=== PATIENT | male | born 1965 | race Caucasian/White ===

== ENCOUNTER 2017-08-07 07:10 | Day surgery (SDC) | payer MEDICAID ==
[~2017-08-07 07:10] MED LIST: Cefuroxime 10 MG/ML SYRINGE EYELF SCH; Lidocaine 1% PF 2 ML SDV INJECT SCH; Phenylephrine 2.5% Ophth Soln 2 ML Bot EYELF SCH; Pilocarpine 4% Ophth Soln 15 ML Bot EYELF SCH; Polymyxin B/Trimethoprim 10 ML Bottle EYELF ONE
[2017-08-07] MEDS: Ofloxacin 0.3% Ophth Soln 5 ML Bottle EYELF SCH ×3 (07:25→08:59)
[2017-08-07] MEDS: Brimonidine 0.2% Ophth Soln 5 ML Bottle EYELF SCH ×3 (07:30→08:59)
[2017-08-07] MEDS: Phenylephrine 2.5% Ophth Soln 2 ML Bot EYELF SCH ×5 (07:37→08:41)
--- NOTE | 2017-08-07 07:50 | PCM.PREANE ---
Preanesthetic Assessment - Procedure Proposed Procedure: L eye cataract extraction with IOL - Anesthesia/Transfusion/Family Hx Anesthesia History: Prior Anesthesia Without Reaction Family History of Anesthesia Reaction: No Transfusion History: No Prior Transfusion(s) Additional History: stage 3 kidney disease - Review of Systems General: No Symptoms Pulmonary: No Symptoms Cardiovascular: Other (HTN) Gastrointestinal: No Symptoms Neurological: No Symptoms, Other (RA) Other: Reports: Diabetes (NIDDM), Depression, Anxiety - Physical Assessment NPO Status Date: 08/07/17 NPO Status Time: 21:00 Pulse: 74 O2 Sat by Pulse Oximetry: 97 Respiratory Rate: 16 Blood Pressure: 121/75 Temperature: 36.6 C Height: 1.88 m Weight: 90.718 kg ASA Class: 2 Mental Status: Alert & Oriented x3 Airway Class: Mallampati = 2 Dentition: Reports: Normal Dentition Thyro-Mental Finger Breadths: 3 Mouth Opening Finger Breadths: 3 ROM/Head Extension: Full Lungs: Clear to Auscultation, Normal Respiratory Effort Cardiovascular: Regular Rate, Regular Rhythm - Allergies Allergies/Adverse Reactions: Allergies Allergy/AdvReac Type Severity Reaction Status Date / Time Sulfa (Sulfonamide Allergy Intermediate Rash Verified 08/06/17 14:02 Antibiotics) - Blood Blood Available: No Product(s) Available: None - Anesthesia Plan Pre-Op Medication Ordered: None - Acknowledgements Anesthesia Type Planned: MAC Pt an Appropriate Candidate for the Planned Anesthesia: Yes Alternatives and Risks of Anesthesia Discussed w Pt/Guardian: Yes Pt/Guardian Understands and Agrees with Anesthesia Plan: Yes PreAnesthesia Questionnaire Cardiovascular History: Reports: Hypertension Genitourinary History: Reports: Renal Disease Psychiatric History: Reports: Depression Endocrine/Metabolic History: Reports: Diabetes, Type II - Infectious Disease History Infectious Disease History: Reports: Chicken Pox - SUBSTANCE USE Smoking Status *Q: Never Smoker Second Hand Smoke Exposure: No Days Per Week of Alcohol Use: 0 (occasional) Recreational Drug Use History: No - HOME MEDS Home Medications: Home Meds Hydrocodone/Acetaminophen [Hydrocodon-Acetaminophn 10-325] 1 - 2 tab PO BEDTIME PRN 02/20/14 [History] Zolpidem [Ambien] 10 mg PO BEDTIME 02/20/14 [History] tiZANidine [Zanaflex] 4 mg PO BID PRN 02/20/14 [History] Adalimumab [Humira] 40 mg PO Q14D 11/11/15 [History] Linagliptin [Tradjenta] 5 mg PO DAILY 11/11/15 [History] Losartan [Cozaar] 25 mg PO DAILY 11/11/15 [History] Potassium Citrate [Potassium Citrate] 10 meq PO BID 11/11/15 [History] risperiDONE 2 mg PO DAILY 11/11/15 [History] Cholecalciferol (Vitamin D3) [Vitamin D3] 5,000 unit PO DAILY 08/06/17 [History] Citalopram Hydrobromide [Celexa] 40 mg PO DAILY 08/06/17 [History] Cyanocobalamin (Vitamin B-12) [Vitamin B-12] 1,000 mcg PO DAILY 08/06/17 [ History] Gabapentin [Neurontin] 300 mg PO TID 08/06/17 [History] atorvaSTATin [Lipitor] 40 mg PO BEDTIME 08/06/17 [History] buPROPion HCl [Wellbutrin Xl] 300 mg PO DAILY 08/06/17 [History] - CURRENT (IN HOUSE) MEDS Current Meds: Current Medications Brimonidine Tartrate (Alphagan 0.2% Ophth Soln) 0 ml EYELF ASDIRECTED LULA Stop: 08/07/17 18:00 Last Admin: 08/07/17 07:30 Dose: 1 drop Cefuroxime Sodium (Zinacef) 0 mg EYELF ASDIRECTED LULA Stop: 08/07/17 18:00 Lidocaine HCl (Xylocaine-Mpf 1%) 10 ml INJECT ASDIRECTED LULA Stop: 08/07/17 18:00 Ofloxacin (Ocuflox 0.3% Ophth Soln) 0 ml EYELF ASDIRECTED LULA Stop: 08/07/17 18:00 Last Admin: 08/07/17 07:25 Dose: 1 drop Phenylephrine HCl (Pablo-Synephrine 2.5% Ophth Soln) 0 ml EYELF ASDIRECTED LULA Stop: 08/07/17 18:00 Last Admin: 08/07/17 07:37 Dose: 1 drop Pilocarpine HCl (Pilocar 4% Ophth Soln) 0 ml EYELF ASDIRECTED LULA Stop: 08/07/17 18:00 Tetracaine HCl (Tetracaine 0.5% Steri-Unit Michelle) 0 ml EYELF ASDIRECTED LULA Stop: 08/07/17 18:00 Tropicamide (Mydriacyl 1% Ophth Soln) 0 ml EYELF ASDIRECTED LULA Stop: 08/07/17 18:00 Last Admin: 08/07/17 07:41 Dose: 1 drop Discontinued Medications Phenylephrine HCl (Pablo-Synephrine 2.5% Ophth Soln) 0 ml EYELF ASDIRECTED LULA Stop: 08/07/17 06:01
[2017-08-07] MEDS: Tetracaine HCl/PF 0.5% 4 ML Bottle EYELF SCH ×4 (08:27→08:51)
--- NOTE | 2017-08-07 09:07 | PCM48HPAN ---
Post Anesthesia Note - EVALUATION WITHIN 48HRS OF ANESTHETIC Vital Signs in Normal Range: Yes Patient Participated in Evaluation: Yes Respiratory Function Stable: Yes Airway Patent: Yes Cardiovascular Function Stable: Yes Hydration Status Stable: Yes Pain Control Satisfactory: Yes Nausea and Vomiting Control Satisfactory: Yes Mental Status Recovered: Yes
[2017-08-07 09:40] VITALS: BP 114/73
== END 2017-08-07 09:10 | disposition home or self-care (01) ==
LOC: JD.SDS 07:10
PROVIDERS: ATTEND Ophthalmology
DX: H25.813 Combined forms of age-related cataract, bilateral (principal); H40.1131 Primary open-angle glaucoma, bilateral, mild stage; H02.831 Dermatochalasis of right upper eyelid; H02.834 Dermatochalasis of left upper eyelid; E11.36 Type 2 diabetes mellitus with diabetic cataract; F41.9 Anxiety disorder, unspecified; F32.9 Major depressive disorder, single episode, unspecified; I10 Essential (primary) hypertension; Z87.442 Personal history of urinary calculi; Z83.518 Family history of other specified eye disorder; Z98.890 Other specified postprocedural states; Z79.899 Other long term (current) drug therapy; Z79.84 Long term (current) use of oral hypoglycemic drugs; Z88.2 Allergy status to sulfonamides
CPT/HCPCS: 66984; A9270; C1780; J0697

== ENCOUNTER 2017-09-18 09:56 | Day surgery (SDC) | payer MEDICAID ==
[~2017-09-18 09:56] MED LIST changes: -Cefuroxime 10 MG/ML SYRINGE EYELF SCH; +Cefuroxime 10 MG/ML SYRINGE EYERT SCH; -Phenylephrine 2.5% Ophth Soln 2 ML Bot EYELF SCH; -Pilocarpine 4% Ophth Soln 15 ML Bot EYELF SCH; +Pilocarpine 4% Ophth Soln 15 ML Bot EYERT SCH; -Polymyxin B/Trimethoprim 10 ML Bottle EYELF ONE
[2017-09-18] MEDS: Ofloxacin 0.3% Ophth Soln 5 ML Bottle EYERT SCH ×3 (11:25→12:59)
--- NOTE | 2017-09-18 11:28 | PCM.PREANE ---
Preanesthetic Assessment - Anesthesia/Transfusion/Family Hx Anesthesia History: Prior Anesthesia Without Reaction Family History of Anesthesia Reaction: No Transfusion History: No Prior Transfusion(s) Intubation History: Unknown - Review of Systems General: No Symptoms Pulmonary: No Symptoms Cardiovascular: No Symptoms (history MVP with no symptoms noted.), Palpitations (with anxiety), Lightheadedness Gastrointestinal: No Symptoms (GERD) Neurological: No Symptoms Other: Reports: None (Kidney disease noted per patient.), Diabetes (am blood sugar =121 @ 0800), Depression, Anxiety - Physical Assessment NPO Status Date: 09/17/17 NPO Status Time: 22:00 Pulse: 77 O2 Sat by Pulse Oximetry: 93 Respiratory Rate: 12 Blood Pressure: 99/71 Temperature: 36.5 C Height: 1.88 m Weight: 91.172 kg ASA Class: 3 Mental Status: Alert & Oriented x3 Airway Class: Mallampati = 3 Dentition: Reports: Normal Dentition, Caries Thyro-Mental Finger Breadths: 3 Mouth Opening Finger Breadths: 3 ROM/Head Extension: Full Lungs: Clear to Auscultation, Normal Respiratory Effort Cardiovascular: Regular Rate, Regular Rhythm, No Murmurs - Allergies Allergies/Adverse Reactions: Allergies Allergy/AdvReac Type Severity Reaction Status Date / Time Sulfa (Sulfonamide Allergy Intermediate Rash Verified 09/17/17 14:25 Antibiotics) - Anesthesia Plan Pre-Op Medication Ordered: None - Acknowledgements Anesthesia Type Planned: MAC Pt an Appropriate Candidate for the Planned Anesthesia: Yes Alternatives and Risks of Anesthesia Discussed w Pt/Guardian: Yes Pt/Guardian Understands and Agrees with Anesthesia Plan: Yes PreAnesthesia Questionnaire Cardiovascular History: Reports: Hypertension Genitourinary History: Reports: Renal Disease Psychiatric History: Reports: Depression Endocrine/Metabolic History: Reports: Diabetes, Type II - Infectious Disease History Infectious Disease History: Reports: Chicken Pox - SUBSTANCE USE Smoking Status *Q: Never Smoker Second Hand Smoke Exposure: No Days Per Week of Alcohol Use: 0 (occasional) Recreational Drug Use History: No - HOME MEDS Home Medications: Home Meds Hydrocodone/Acetaminophen [Hydrocodon-Acetaminophn 10-325] 1 - 2 tab PO BEDTIME PRN 02/20/14 [History] Zolpidem [Ambien] 10 mg PO BEDTIME 02/20/14 [History] tiZANidine [Zanaflex] 4 mg PO BID PRN 02/20/14 [History] Adalimumab [Humira] 40 mg PO Q14D 11/11/15 [History] Linagliptin [Tradjenta] 5 mg PO DAILY 11/11/15 [History] Losartan [Cozaar] 25 mg PO DAILY 11/11/15 [History] Potassium Citrate [Potassium Citrate] 10 meq PO BID 11/11/15 [History] risperiDONE 2 mg PO DAILY 11/11/15 [History] Cholecalciferol (Vitamin D3) [Vitamin D3] 5,000 unit PO DAILY 08/06/17 [History] Citalopram Hydrobromide [Celexa] 40 mg PO DAILY 08/06/17 [History] Cyanocobalamin (Vitamin B-12) [Vitamin B-12] 1,000 mcg PO DAILY 08/06/17 [ History] Gabapentin [Neurontin] 300 mg PO TID 08/06/17 [History] atorvaSTATin [Lipitor] 40 mg PO BEDTIME 08/06/17 [History] buPROPion HCl [Wellbutrin Xl] 300 mg PO DAILY 08/06/17 [History] - CURRENT (IN HOUSE) MEDS Current Meds: Current Medications Brimonidine Tartrate (Alphagan 0.2% Ophth Soln) 0 ml EYERT ASDIRECTED LULA Stop: 09/18/17 18:00 Cefuroxime Sodium (Zinacef) 0 mg EYERT ASDIRECTED LULA Stop: 09/18/17 18:00 Lidocaine HCl (Xylocaine-Mpf 1%) 10 ml INJECT ASDIRECTED LULA Stop: 09/18/17 18:00 Ofloxacin (Ocuflox 0.3% Ophth Soln) 0 ml EYERT ASDIRECTED LULA Stop: 09/18/17 18:00 Phenylephrine HCl (Pablo-Synephrine 2.5% Ophth Soln) 0 ml EYERT ASDIRECTED LULA Stop: 09/18/17 18:00 Pilocarpine HCl (Pilocar 4% Ophth Soln) 0 ml EYERT ASDIRECTED LULA Stop: 09/18/17 18:00 Tetracaine HCl (Tetracaine 0.5% Steri-Unit Michelle) 0 ml EYERT ASDIRECTED LULA Stop: 09/18/17 18:00 Tropicamide (Mydriacyl 1% Ophth Soln) 0 ml EYERT ASDIRECTED LULA Stop: 09/18/17 18:00
[2017-09-18] MEDS: Brimonidine 0.2% Ophth Soln 5 ML Bottle EYERT SCH ×3 (11:32→12:59)
[2017-09-18] MEDS: Phenylephrine 2.5% Ophth Soln 2 ML Bot EYERT SCH ×5 (11:37→12:41)
[2017-09-18] MEDS: Tetracaine HCl/PF 0.5% 4 ML Bottle EYERT SCH ×2 (12:39→12:48)
[2017-09-18 13:14] VITALS: BP 104/71
== END 2017-09-18 13:11 | disposition home or self-care (01) ==
LOC: JD.SDS 09:56
PROVIDERS: ATTEND Ophthalmology
DX: H25.011 Cortical age-related cataract, right eye (principal); H25.811 Combined forms of age-related cataract, right eye; H52.31 Anisometropia; H40.1131 Primary open-angle glaucoma, bilateral, mild stage; E11.36 Type 2 diabetes mellitus with diabetic cataract; I12.9 Hypertensive chronic kidney disease with stage 1 through stage 4 chronic kidney disease, or unspecified chronic kidney disease; E11.22 Type 2 diabetes mellitus with diabetic chronic kidney disease; N18.3 Chronic kidney disease, stage 3 (moderate); F41.9 Anxiety disorder, unspecified; F32.9 Major depressive disorder, single episode, unspecified; M06.9 Rheumatoid arthritis, unspecified; M92.50 Unspecified juvenile osteochondrosis of tibia and fibula; G43.909 Migraine, unspecified, not intractable, without status migrainosus; K21.9 Gastro-esophageal reflux disease without esophagitis; Z98.42 Cataract extraction status, left eye; Z96.1 Presence of intraocular lens; Z88.2 Allergy status to sulfonamides; Z79.4 Long term (current) use of insulin; Z79.84 Long term (current) use of oral hypoglycemic drugs; Z79.899 Other long term (current) drug therapy; Z98.890 Other specified postprocedural states
CPT/HCPCS: 66984; C1780; J0697; A9270-GY

== ENCOUNTER 2017-11-25 10:35 | Inpatient (IN) | payer MEDICAID ==
[2017-11-25] MEDS ORDERED: Metoclopramide 10 MG/2 ML SDV IVPUSH ONE (11:19)
--- NOTE | 2017-11-25 11:20 | EDM.PDOC ---
ED HPI GENERAL MEDICAL PROBLEM - General Chief Complaint: Abdominal Pain Stated Complaint: ABDOMINAL PAIN Time Seen by Provider: 11/25/17 11:12 Source of Information: Reports: Patient History Limitations: Reports: No Limitations - History of Present Illness INITIAL COMMENTS - FREE TEXT/NARRATIVE: 52-year-old male presents to the ED with diffuse lower abdominal pain and mild rectal pressure. He states he had a bowel movement yesterday which was difficult and somewhat painful to pass without any bleeding per rectum. Similarly this morning he is bowels did move and he felt removed fairly easily without any increase in pain. However the pain in the lower abdomen is worse now than it was yesterday. Hurts to walk .it's painful to cough or sneeze. He thought he had a low-grade fever. Has no chills. Has not yet eaten today. No history of diverticulitis. Previous abdominal surgeries that of a laparoscopic cholecystectomy. Denies any blood per rectum. He's had no nausea or vomiting. Patient states he awoke during the night( 0200 hrs) with pain and took 2 Aleve tablets with water ,which seemed to alleviate the pain. After bowel movement yesterday he appreciated that there was a sense of incomplete emptying. He is not known to have a history of problems with constipation. However on review of his medication list, he is on multiple medications that could cause constipation such as risperidone, citalopram and tizanidine. Onset: Gradual Onset Date: 11/24/17 Duration: Hour(s): Location: Reports: Abdomen (Left lower quadrant and suprapubic abdomen rating across to the right) Quality: Reports: Ache, Pressure, Other Severity: Moderate (Denies any cramps. Pain is rated as 8 or 9 out of 10.) Improves with: Reports: Rest Worsens with: Reports: Other, Movement Context: Denies: Activity (Coughing), Exercise, Lifting, Sick Contact, Trauma, Other Associated Symptoms: Reports: Cough. 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 (Took 2 Aleve during the night which seemed to help the pain.) Lower Abdominal Pain Score (Numeric/FACES): 9 - Related Data Allergies Allergy/AdvReac Type Severity Reaction Status Date / Time Sulfa (Sulfonamide Allergy Intermediate Rash Verified 11/25/17 14:42 Antibiotics) Home Meds: Home Meds Hydrocodone/Acetaminophen [Hydrocodon-Acetaminophn 10-325] 1 - 2 tab PO BEDTIME PRN 02/20/14 [History] Zolpidem [Ambien] 10 mg PO BEDTIME 02/20/14 [History] tiZANidine [Zanaflex] 4 mg PO BID PRN 02/20/14 [History] Adalimumab [Humira] 40 mg PO Q14D 11/11/15 [History] Linagliptin [Tradjenta] 5 mg PO DAILY 11/11/15 [History] Losartan [Cozaar] 25 mg PO DAILY 11/11/15 [History] Potassium Citrate [Potassium Citrate] 10 meq PO BID 11/11/15 [History] risperiDONE 2 mg PO DAILY 11/11/15 [History] Cholecalciferol (Vitamin D3) [Vitamin D3] 5,000 unit PO DAILY 08/06/17 [History] Citalopram Hydrobromide [Celexa] 40 mg PO DAILY 08/06/17 [History] Cyanocobalamin (Vitamin B-12) [Vitamin B-12] 1,000 mcg PO DAILY 08/06/17 [ History] Gabapentin [Neurontin] 300 mg PO TID 08/06/17 [History] atorvaSTATin [Lipitor] 40 mg PO BEDTIME 08/06/17 [History] buPROPion HCl [Wellbutrin Xl] 300 mg PO DAILY 08/06/17 [History] Past Medical History HEENT History: Reports: Cataract, Glaucoma Cardiovascular History: Reports: High Cholesterol, Hypertension Gastrointestinal History: Reports: GERD Genitourinary History: Reports: Renal Calculus, Renal Disease Other Genitourinary History: Stage III kidney disease Neurological History: Reports: Migraines Psychiatric History: Reports: Anxiety, Depression Endocrine/Metabolic History: Reports: Diabetes, Type II (uses Tradjenta for control.) - Infectious Disease History Infectious Disease History: Reports: Chicken Pox - Past Surgical History HEENT Surgical History: Reports: Cataract Surgery GI Surgical History: Reports: Cholecystectomy Other Musculoskeletal Surgeries/Procedures:: Knee surgeries Social & Family History - Family History Family Medical History: Noncontributory - Tobacco Use Smoking Status *Q: Never Smoker Second Hand Smoke Exposure: No - Alcohol Use Days Per Week of Alcohol Use: 0 (occasional) - Recreational Drug Use Recreational Drug Use: No - Living Situation & Occupation Living situation: Reports: Occupation: Unemployed ED ROS GENERAL - Review of Systems Review Of Systems: See Below Constitutional: Reports: Chills, Malaise, Decreased Appetite. Denies: Fever, Weakness, Fatigue, Weight Loss HEENT: Reports: No Symptoms Respiratory: Reports: No Symptoms Cardiovascular: Reports: No Symptoms Endocrine: Reports: Fatigue GI/Abdominal: Reports: Abdominal Pain (See history of present illness), Constipation. Denies: Diarrhea, Flatus, Hematemesis, Hematochezia, Nausea, Stool Incontinence, Vomiting : Reports: No Symptoms Musculoskeletal: Reports: No Symptoms Skin: Reports: No Symptoms Neurological: Reports: No Symptoms Psychiatric: Reports: No Symptoms Hematologic/Lymphatic: Reports: No Symptoms Immunologic: Reports: No Symptoms ED EXAM, GI/ABD - Physical Exam Exam: See Below Exam Limited By: No Limitations General Appearance: Alert, WD/WN, Anxious, Mild Distress Eyes: Bilateral: Normal Appearance (No jaundice) Throat/Mouth: Other Head: Atraumatic, Normocephalic Neck: Normal Inspection, Supple, Non-Tender, Full Range of Motion. No: Lymphadenopathy (L), Lymphadenopathy (R) Respiratory/Chest: No Respiratory Distress, Lungs Clear, Normal Breath Sounds, Chest Non-Tender Cardiovascular: Normal Peripheral Pulses, Regular Rate, Rhythm, No Edema, No Gallop, No Murmur, No Rub GI/Abdominal Exam: Normal Bowel Sounds, Soft, Guarding, Rebound (Mostly left lower quadrant), Tender (Tenderness throughout the left and right lower quadrants of the abdomen with guarding. Appears to localize tenderness more to the left lower quadrant in the distribution of the sigmoid colon with moderate guarding but no rebound tenderness.), Other (Evidence of previous laparoscopic surgical repair on his gallbladder.). No: Rigid (Mild regarding left lower quadrant), Hepatomegaly, Splenomegaly (Male) Exam: No Hernia Back Exam: Normal Inspection, Full Range of Motion, CVA Tenderness (L) Extremities: Normal Inspection, Normal Range of Motion, Non-Tender, No Pedal Edema Neurological: Alert, Oriented, CN II-XII Intact, Normal Cognition, Normal Gait Psychiatric: Normal Affect, Normal Mood Skin Exam: Warm, Dry, Intact, Normal Color, No Rash EKG INTERPRETATION EKG Date: 11/25/17 Time: 14:50 Rhythm: Other (Sinus tachycardia) Rate (Beats/Min): 101 [place]: Normal P-Wave: Present QRS: Normal ST-T: Normal QT: Normal EKG Interpretation Comments: Normal ECG Course - Vital Signs Last Recorded V/S: Last Vital Signs Temp 36.9 C 11/26/17 03:21 Pulse 104 H 11/26/17 03:21 Resp 16 11/26/17 03:21 BP 100/63 11/25/17 22:59 Pulse Ox 91 L 11/26/17 03:21 - Orders/Labs/Meds Orders: Active Orders 24 hr Category Date Time Status Patient Status [ADT] Stat ADT 11/25/17 15:15 Active Abdomen 1V Flat [CR] Stat Exams 11/25/17 11:18 Taken Abdomen Pelvis wo Cont [CT] Stat Exams 11/25/17 12:17 Taken Sodium Chloride 0.9% [Saline Flush] Med 11/25/17 14:32 Active 10 ml FLUSH ASDIRECTED PRN Peripheral IV Insertion Adult [OM.PC] Routine Oth 11/25/17 14:32 Ordered Schedule Procedure [COMM] Routine Oth 11/25/17 14:32 Ordered Resuscitation Status Routine Resus Stat 11/25/17 14:32 Ordered EKG 12 Lead [EK] Stat Ther 11/25/17 14:34 Ordered Medication Orders Hydromorphone HCl (Dilaudid) 0.5 mg IVPUSH Q1H PRN PRN Reason: Pain (severe 7-10) Last Admin: 11/26/17 05:46 Dose: 0.5 mg Admin: 11/26/17 03:14 Dose: 0.5 mg Admin: 11/26/17 01:00 Dose: 0.5 mg Sodium Chloride (Normal Saline) 1,000 mls @ 125 mls/hr IV ASDIRECTED LULA Last Admin: 11/26/17 03:25 Dose: 125 mls/hr Infusion: 11/26/17 03:11 Dose: 125 mls/hr Admin: 11/25/17 19:11 Dose: 125 mls/hr Piperacillin Sod/Tazobactam (Sod 4.5 gm/ Sodium Chloride) 100 mls @ 25 mls/hr IV Q8H LULA Last Admin: 11/26/17 01:02 Dose: 25 mls/hr Admin: 11/25/17 20:17 Dose: Admin: 11/25/17 20:17 Dose: Admin: 11/25/17 20:17 Dose: Ondansetron HCl (Zofran) 4 mg IVPUSH Q6H PRN PRN Reason: Nausea/Vomiting Sodium Chloride (Saline Flush) 10 ml FLUSH ASDIRECTED PRN PRN Reason: Keep Vein Open Last Admin: 11/25/17 14:38 Dose: 10 ml Labs: Laboratory Tests 11/25/17 11/25/17 Range/Units 11:35 11:35 WBC 14.12 H (4.23-9.07) K/mm3 RBC 5.29 (4.63-6.08) M/mm3 Hgb 15.9 (13.7-17.5) gm/L Hct 45.9 (40.1-51.0) % MCV 86.8 (79.0-92.2) fl MCH 30.1 (25.7-32.2) pg MCHC 34.6 (32.2-35.5) g/dl RDW Std Deviation 39.2 (35.1-43.9) fL Plt Count 265 (163-337) K/mm3 MPV 9.8 (9.4-12.3) fl Neutrophils % (Manual) 64 H (40-60) % Band Neutrophils % 0 (0-10) % Lymphocytes % (Manual) 24 (20-40) % Atypical Lymphs % 0 % Monocytes % (Manual) 5 (2-10) % Eosinophils % (Manual) 6 (0.8-7.0) % Basophils % (Manual) 1 (0.2-1.2) Platelet Estimate Adequate Polychromasia 1+ slight Anisocytosis 1+ slight Microcytosis 2+ moderate RBC Morph Comment Abnormal Sodium 135 L (136-145) mEq/L Potassium 4.4 (3.5-5.1) mEq/L Chloride 101 (98-107) mEq/L Carbon Dioxide 25 (21-32) mEq/L Anion Gap 13.4 (5-15) BUN 17 (7-18) mg/dL Creatinine 1.8 H (0.7-1.3) mg/dL Est Cr Clr Drug Dosing 55.81 mL/min Estimated GFR (MDRD) 40 (>60) mL/min BUN/Creatinine Ratio 9.4 L (14-18) Glucose 135 H (74-106) mg/dL Calcium 9.5 (8.5-10.1) mg/dL Total Bilirubin 1.5 H (0.2-1.0) mg/dL AST 21 (15-37) U/L ALT 57 (16-63) U/L Alkaline Phosphatase 73 (46-116) U/L C-Reactive Protein 5.9 H* (<1.0) mg/dL Total Protein 7.4 (6.4-8.2) g/dl Albumin 4.1 (3.4-5.0) g/dl Globulin 3.3 gm/dL Albumin/Globulin Ratio 1.2 (1-2) Meds: Medications Generic Name Dose Route Start Last Admin Trade Name F[place]arina PRN Reason Stop Dose Admin Hydromorphone HCl 0.5 mg 11/25/17 16:43 11/26/17 05:46 Dilaudid IVPUSH 0.5 mg Q1H PRN Administration Pain (severe 7-10) Sodium Chloride 1,000 mls @ 125 mls/hr 11/25/17 16:45 11/26/17 03:25 Normal Saline IV 125 mls/hr ASDIRECTED LULA Administration Piperacillin Sod/Tazobactam 100 mls @ 25 mls/hr 11/25/17 01:00 11/26/17 01:02 Sod 4.5 gm/ Sodium Chloride IV 25 mls/hr Q8H LULA Administration Ondansetron HCl 4 mg 11/25/17 16:43 Zofran IVPUSH Q6H PRN Nausea/Vomiting Sodium Chloride 10 ml 11/25/17 14:32 11/25/17 14:38 Saline Flush FLUSH 10 ml ASDIRECTED PRN Administration Keep Vein Open Discontinued Medications Generic Name Dose Route Start Last Admin Trade Name Freq PRN Reason Stop Dose Admin Bupivacaine HCl/Epinephrine Bitart Confirm 11/25/17 14:37 11/25/17 15:42 Marcaine 0.5%/Epinephrine 1:200,000 Administered 11/25/17 14:38 9 ml Dose Administration 50 ml .ROUTE .STK-MED ONE Diatrizoate Meglum/Diatrizoate Sod 120 ml 11/25/17 13:31 11/25/17 13:38 Gastrografin 37% PO 11/25/17 13:32 90 ml ONETIME ONE Administration Diphenhydramine HCl 25 mg 11/25/17 14:15 11/25/17 14:38 Benadryl IVPUSH 11/25/17 14:16 25 mg ONETIME ONE Administration Diphenhydramine HCl 25 mg 11/25/17 17:06 Benadryl IVPUSH Q6H PRN Pruritis Fentanyl 50 mcg 11/25/17 17:06 Sublimaze IVPUSH Q5M PRN Pain Hydromorphone HCl 0.5 mg 11/25/17 12:20 11/25/17 12:47 Dilaudid IVPUSH 11/25/17 12:21 0.5 mg ONETIME ONE Administration Hydromorphone HCl 0.5 mg 11/25/17 17:06 Dilaudid IVPUSH Q15M PRN Pain (severe 7-10) Dextrose/Sodium Chloride 1,000 mls @ 500 mls/hr 11/25/17 11:30 11/25/17 11:57 Dextrose 5%-Normal Saline IV 500 mls/hr ASDIRECTED LULA Administration Levofloxacin/Dextrose 750 mg/ 150 mls @ 100 mls/hr 11/25/17 12:26 11/25/17 12 :53 Premix IV 11/25/17 13:55 100 mls/hr ONETIME ONE Administration Cefoxitin Sodium 2 gm/ Premix 50 mls @ 100 mls/hr 11/25/17 14:08 11/25/17 14: 59 IV 11/25/17 14:37 Not Given ONETIME ONE Cefoxitin Sodium 1 gm/ Premix 50 mls @ 100 mls/hr 11/25/17 14:32 11/25/17 15: 00 IV 11/25/17 15:01 100 mls/hr ONETIME ONE Administration Sodium Chloride 1,000 mls @ 999 mls/hr 11/25/17 14:45 11/25/17 14:47 Normal Saline IV 999 mls/hr ASDIRECTED LULA Administration Piperacillin Sod/Tazobactam 100 mls @ 200 mls/hr 11/25/17 17:00 11/25/17 19: 05 Sod 4.5 gm/ Sodium Chloride IV 11/25/17 17:29 200 mls/hr ONETIME ONE Administration Ketorolac Tromethamine 30 mg 11/25/17 11:30 11/25/17 11:55 Toradol IVPUSH 30 mg ONETIME LULA Administration Lidocaine/Epinephrine Confirm 11/25/17 14:36 11/25/17 15:42 Xylocaine 1% With Epinephrine 1:100,000 Administered 11/25/17 14:37 9 ml Dose Administration 20 ml .ROUTE .STK-MED ONE Metoclopramide HCl 7.5 mg 11/25/17 11:19 11/25/17 11:53 Reglan IVPUSH 11/25/17 11:20 7.5 mg ONETIME ONE Administration Ondansetron HCl 4 mg 11/25/17 14:15 11/25/17 14:38 Zofran IVPUSH 11/25/17 14:16 4 mg ONETIME ONE Administration Ondansetron HCl 4 mg 11/25/17 17:06 Zofran IVPUSH ONETIME PRN Nausea/Vomiting - Radiology Interpretation Free Text/Narrative:: 52-year-old male presents to the ED with diffuse lower abdominal discomfort since yesterday. States it started after having a bowel movement which she thought passed fairly easily. But he did have a sense of incomplete emptying. Pain awoke him during the night and was relieved with 2 Aleve tablets. After bowel movement this morning which again seemed to pass fairly easily without a lot of straining or bleeding noted. Pain worsened. Pain is felt primarily superior pubic leg and left lower quadrant of the abdomen but also some pain in the right lower quadrant. He has no known history of constipation issues. He felt somewhat chilled but he is afebrile on examination. Exam however does reveal him to be quite tender in the left lower quadrant and suprapubic area. This raises the possibility of a possible diverticulitis. Plan IV D5 normal saline at 500 mils per hour. Given Toradol 30 mg IV with Reglan 7.5 mg IV for pain relief. One view the abdomen to be done. Routine labs CBC CMP and CRP to be done. - Re-Assessments/Exams Free Text/Narrative Re-Assessment/Exam: 11/25/17 12:16 Labs reveal a mildly elevated white count at 14.12. There is 64 % neutrophils and no bands. Hemoglobin is 15.9 with hematocrit of 45.9. Sodium is 135 with a potassium of 4.4. Chloride is 11 with a bicarbonate 25. Anion gap is 13.4. B1 is 17 with a creatinine of 1.8.eGFR is only 40 suggesting stage 3 chronic kidney disease. Tocolysis is 135. Bilirubin is 1.5. AST is 21 ALT is 57 alkaline phosphatase normal at 73 C-reactive protein is elevated at 5.9.. KUB reveals increased stool throughout the entire right hemicolon parts of the transverse colon and descending colon. However in light of the elevated white count and elevated CRP will go ahead with CT of the abdomen with oral contrast to rule out diverticulitis. 11/25/17 12:21 patient reports very little relief with the previously given Reglan and Toradol. I will therefore given Dilaudid 0.5 mg IV for further pain relief. He will be started on oral contrast for CT abdomen and pelvis. Clinically the patient has diverticulitis. Will treat with Levaquin 750 mg IV while awaiting all contrast to percolate through his gut over the next hour to provide CT. 11/25/17 14:08 CT the abdomen and pelvis has been completed. It identifies multiple stones in both kidneys without any evidence of urinary tract obstruction. Both kidneys are moderately atrophic. Pancreas is also mildly atrophic. Liver appears normal. He does have some mild bibasilar atelectasis. There is absent. No ductal dilatation within the liver appreciated spleen is normal adrenals normal he does have a retroaortic left renal vein. There is diverticulosis without acute diverticulitis. The appendix is abnormally thickened and dilated with a diameter of up to 13 mm on my assessment the rVrad wrote 12 mm. There are 2 appendicoliths. There is marked adjacent inflammatory changes and a small amount of free fluid deep in the pelvis. Unable to tell for sure if it has ruptured. Prostate is enlarged at 4.5 cm. I will discuss case with educational speech language clinician surgeon Dr. Swenson with a view to him going to the OR. I have given him Levaquin 750 mg IV but he may achieve better coverage with cefoxitin. Therefore this will be started 2 g in the ER as well. Patient reports pain is good as long as he doesn't move or cough. However his experiencing more nausea since he took the oral contrast. We'll give him Benadryl 25 mg IV with Zofran 4 mg IV. And a drill should prevent any dystonic reaction. 11/25/17 14:[address] Swenson and he has asked that we call in the operative crew. Plan will be to taken to the OR for laparoscopic appendectomy 11/25/17 14:58 Dr. Swenson is seen the patient and plan is for operative intervention. Departure - Departure Time of Disposition: 14:59 Disposition: DC/Tfer to [facility] Condition: Fair Clinical Impression: Acute appendicitis with localized peritonitis - Discharge Information - My Orders Last 24 Hours: My Active Orders 11/25/17 11:18 Abdomen 1V Flat [CR] Stat 11/25/17 12:17 Abdomen Pelvis wo Cont [CT] Stat - Assessment/Plan Last 24 Hours: My Active Orders 11/25/17 11:18 Abdomen 1V Flat [CR] Stat 11/25/17 12:17 Abdomen Pelvis wo Cont [CT] Stat
[2017-11-25] MEDS ORDERED: Dextrose 5%-0.9% NaCl 1,000 ML IV SCH (11:30)
[2017-11-25] MEDS ORDERED: Ketorolac 30 MG/ML SDV IVPUSH SCH (11:30)
[2017-11-25] MEDS ORDERED: HYDROmorphone 0.5 MG/0.5 ML Syringe IVPUSH ONE (12:20)
[2017-11-25] MEDS ORDERED: Levofloxacin/Dextrose 5%-Water 750 MG in Premix Bag 1 BAG IV ONE (12:26)
[2017-11-25] MEDS ORDERED: Diatrizoate Meglumine/Diatrizoate Sodium 37% 120 ML Bottle PO ONE (13:31)
[2017-11-25] MEDS ORDERED: cefOXitin 2 GM in Premix Bag 1 BAG IV ONE (14:08)
[2017-11-25] MEDS ORDERED: Ondansetron 4 MG/2 ML SDV IVPUSH ONE (14:15)
[2017-11-25] MEDS ORDERED: diphenhydrAMINE 50 MG/ML SDV IVPUSH ONE (14:15)
[2017-11-25] MEDS ORDERED: Sodium Chloride 0.9% 10 ML Syringe FLUSH PRN (14:32)
[2017-11-25] MEDS ORDERED: cefOXitin 1 GM in Premix Bag 1 BAG IV ONE (14:32)
[2017-11-25] MEDS ORDERED: Lidocaine 1% with EPINEPHrine 1:100,000 20 ML MDV ONE (14:36)
[2017-11-25] MEDS ORDERED: Bupivacaine 0.5%/EPINEPHrine 1:200,000 50 ML MDV ONE (14:37)
[2017-11-25] MEDS ORDERED: Sodium Chloride 0.9% 1,000 ML IV SCH (14:45)
--- NOTE | 2017-11-25 14:54 | PCM.HP ---
H&P History of Present Illness - General Date of Service: 11/25/17 Source of Information: Patient History Limitations: Reports: No Limitations - History of Present Illness Initial Comments - Free Text/Narative: 52-year-old male was in usual state of health until yesterday morning when after a bowel movement he experienced left lower quadrant abdominal pain. The pain worsened throughout the day and was associated with anorexia nausea and several episodes of emesis. It increased slightly overnight and then after a hard stool this morning he appreciated more lower abdominal discomfort. He presented to the emergency room for evaluation. ED staff appreciated left lower quadrant abdominal discomfort and some mild right lower quadrant abdominal discomfort on exam and because of this a CT scan of his abdomen was ordered. The CT presented imaging characteristics consistent with acute appendicitis with local peritonitis possibly related to fecaliths. I was asked to see him for surgery. Lower Abdominal Pain Score (Numeric/FACES): 9 - Related Data Allergies/Adverse Reactions: Allergies Allergy/AdvReac Type Severity Reaction Status Date / Time Sulfa (Sulfonamide Allergy Intermediate Rash Verified 11/25/17 14:42 Antibiotics) Home Medications: Home Meds Hydrocodone/Acetaminophen [Hydrocodon-Acetaminophn 10-325] 1 - 2 tab PO BEDTIME PRN 02/20/14 [History] Zolpidem [Ambien] 10 mg PO BEDTIME 02/20/14 [History] tiZANidine [Zanaflex] 4 mg PO BID PRN 02/20/14 [History] Adalimumab [Humira] 40 mg PO Q14D 11/11/15 [History] Linagliptin [Tradjenta] 5 mg PO DAILY 11/11/15 [History] Losartan [Cozaar] 25 mg PO DAILY 11/11/15 [History] Potassium Citrate [Potassium Citrate] 10 meq PO BID 11/11/15 [History] risperiDONE 2 mg PO DAILY 11/11/15 [History] Cholecalciferol (Vitamin D3) [Vitamin D3] 5,000 unit PO DAILY 08/06/17 [History] Citalopram Hydrobromide [Celexa] 40 mg PO DAILY 08/06/17 [History] Cyanocobalamin (Vitamin B-12) [Vitamin B-12] 1,000 mcg PO DAILY 08/06/17 [ History] Gabapentin [Neurontin] 300 mg PO TID 08/06/17 [History] atorvaSTATin [Lipitor] 40 mg PO BEDTIME 08/06/17 [History] buPROPion HCl [Wellbutrin Xl] 300 mg PO DAILY 08/06/17 [History] Past Medical History HEENT History: Reports: Cataract, Glaucoma Cardiovascular History: Reports: High Cholesterol, Hypertension Gastrointestinal History: Reports: GERD Genitourinary History: Reports: Renal Calculus, Renal Disease Other Genitourinary History: Stage III kidney disease Neurological History: Reports: Migraines Psychiatric History: Reports: Anxiety, Depression Endocrine/Metabolic History: Reports: Diabetes, Type II (uses Tradjenta for control.) - Infectious Disease History Infectious Disease History: Reports: Chicken Pox - Past Surgical History HEENT Surgical History: Reports: Cataract Surgery GI Surgical History: Reports: Cholecystectomy Other Musculoskeletal Surgeries/Procedures:: Knee surgeries Social & Family History - Family History Family Medical History: Noncontributory - Tobacco Use Smoking Status *Q: Never Smoker Second Hand Smoke Exposure: No - Alcohol Use Days Per Week of Alcohol Use: 0 (occasional) - Recreational Drug Use Recreational Drug Use: No - Living Situation & Occupation Living situation: Reports: Occupation: Unemployed H&P Review of Systems - Review of Systems: Review Of Systems: ROS reveals no pertinent complaints other than HPI. Exam - Exam Exam: See Below - Vital Signs Vital Signs: Last Vital Signs Temp 36.4 C 11/25/17 10:54 Pulse 82 11/25/17 10:54 Resp 16 11/25/17 10:54 BP 152/91 H 11/25/17 10:54 Pulse Ox 93 L 11/25/17 10:54 Weight: 90.718 kg - Exam General: Alert, Oriented, Cooperative HEENT: EOMI, Hearing Intact Neck: Supple, Trachea Midline Lungs: Clear to Auscultation, Normal Respiratory Effort Cardiovascular: Regular Rate, Regular Rhythm, Normal S1, Normal S2 GI/Abdominal Exam: Distended (Mild distention), Tender (Left and right lower quadrant abdominal discomfort to deep palpation), Abnormal Bowel Sounds ( Distant bowel sounds), Other (Previous infraumbilical cholecystectomy incision well-healed) (Male) Exam: Deferred Rectal (Males) Exam: Deferred Extremities: Non-Tender Skin: Warm, Dry, Intact Neuro Extensive - Mental Status: Alert, Oriented x3, Normal Mood/Affect, Normal Cognition, Memory Intact Psychiatric: Alert, Normal Affect, Normal Mood - Patient Data Lab Results Last 24 hrs: Laboratory Results - last 24 hr 11/25/17 11/25/17 Range/Units 11:35 11:35 WBC 14.12 H (4.23-9.07) K/mm3 RBC 5.29 (4.63-6.08) M/mm3 Hgb 15.9 (13.7-17.5) gm/L Hct 45.9 (40.1-51.0) % MCV 86.8 (79.0-92.2) fl MCH 30.1 (25.7-32.2) pg MCHC 34.6 (32.2-35.5) g/dl RDW Std Deviation 39.2 (35.1-43.9) fL Plt Count 265 (163-337) K/mm3 MPV 9.8 (9.4-12.3) fl Neutrophils % (Manual) 64 H (40-60) % Band Neutrophils % 0 (0-10) % Lymphocytes % (Manual) 24 (20-40) % Atypical Lymphs % 0 % Monocytes % (Manual) 5 (2-10) % Eosinophils % (Manual) 6 (0.8-7.0) % Basophils % (Manual) 1 (0.2-1.2) Platelet Estimate Adequate Polychromasia 1+ slight Anisocytosis 1+ slight Microcytosis 2+ moderate RBC Morph Comment Abnormal Sodium 135 L (136-145) mEq/L Potassium 4.4 (3.5-5.1) mEq/L Chloride 101 (98-107) mEq/L Carbon Dioxide 25 (21-32) mEq/L Anion Gap 13.4 (5-15) BUN 17 (7-18) mg/dL Creatinine 1.8 H (0.7-1.3) mg/dL Est Cr Clr Drug Dosing 55.81 mL/min Estimated GFR (MDRD) 40 (>60) mL/min BUN/Creatinine Ratio 9.4 L (14-18) Glucose 135 H (74-106) mg/dL Calcium 9.5 (8.5-10.1) mg/dL Total Bilirubin 1.5 H (0.2-1.0) mg/dL AST 21 (15-37) U/L ALT 57 (16-63) U/L Alkaline Phosphatase 73 (46-116) U/L C-Reactive Protein 5.9 H* (<1.0) mg/dL Total Protein 7.4 (6.4-8.2) g/dl Albumin 4.1 (3.4-5.0) g/dl Globulin 3.3 gm/dL Albumin/Globulin Ratio 1.2 (1-2) Result Diagrams: 11/25/17 11:35 11/25/17 11:35 *Q Meaningful Use (ADM) - VTE *Q VTE Criteria *Q: - Stroke *Q Stroke Criteria *Q: - AMI *Q AMI Criteria *Q: - Problem List (1) Acute appendicitis with localized peritonitis SNOMED Code(s): 737140793 ICD Code: K35.3 - ACUTE APPENDICITIS WITH LOCALIZED PERITONITIS Status: Acute Priority: High Current Visit: Yes Problem List Initiated/Reviewed/Updated: Yes Orders Last 24hrs: Active Orders 24 hr Category Date Time Status EKG Documentation Completion [RC] ASDIRECTED Care 11/25/17 14:34 Active Patient to Empty Bladder [RC] ASDIRECTED Care 11/25/17 14:32 Active Peripheral IV Care [RC] . DIRECTED Care 11/25/17 14:33 Active Verify Patient Consent Obtain [RC] ASDIRECTED Care 11/25/17 14:32 Active Nothing Per Oral Diet [DIET] Diet 11/25/17 Lunch Active Abdomen 1V Flat [CR] Stat Exams 11/25/17 11:18 Taken Abdomen Pelvis wo Cont [CT] Stat Exams 11/25/17 12:17 Taken Dextrose 5%-0.9% NaCl [Dextrose 5%-Normal Saline] 1,000 Med 11/25/17 11:30 Active ml IV ASDIRECTED Ketorolac [Toradol] Med 11/25/17 11:30 Active 30 mg IVPUSH ONETIME Sodium Chloride 0.9% [Normal Saline] 1,000 ml Med 11/25/17 14:45 Active IV ASDIRECTED Sodium Chloride 0.9% [Saline Flush] Med 11/25/17 14:32 Active 10 ml FLUSH ASDIRECTED PRN cefOXitin [Mefoxin in Dextrose,Iso-Osm 1 GM/50 ML] 1 gm Med 11/25/17 14:32 Active Premix Bag 1 bag IV ONETIME Peripheral IV Insertion Adult [OM.PC] Routine Oth 11/25/17 14:32 Ordered Schedule Procedure [COMM] Routine Oth 11/25/17 14:32 Ordered Resuscitation Status Routine Resus Stat 11/25/17 14:32 Ordered EKG 12 Lead [EK] Stat Ther 11/25/17 14:34 Ordered Medication Orders Dextrose/Sodium Chloride (Dextrose 5%-Normal Saline) 1,000 mls @ 500 mls/hr IV ASDIRECTED [facility] Last Admin: 11/25/17 11:57 Dose: 500 mls/hr Cefoxitin Sodium 1 gm/ Premix 50 mls @ 100 mls/hr IV ONETIME ONE Stop: 11/25/17 15:01 Sodium Chloride (Normal Saline) 1,000 mls @ 999 mls/hr IV ASDIRECTED [facility] Last Admin: 11/25/17 14:47 Dose: 999 mls/hr Ketorolac Tromethamine (Toradol) 30 mg IVPUSH ONETIME [facility] Last Admin: 11/25/17 11:55 Dose: 30 mg Sodium Chloride (Saline Flush) 10 ml FLUSH ASDIRECTED PRN PRN Reason: Keep Vein Open Last Admin: 11/25/17 14:38 Dose: 10 ml Assessment/Plan Comment:: imp/plan: Acute appendicitis with localized peritonitis. I recommended to the patient a laparoscopic possible open appendectomy. The patient stated that he understood the benefits and risk of a laparoscopic approach because he had a laparoscopic cholecystectomy. He agreed to have me proceed after all of his questions were answered.
--- NOTE | 2017-11-25 14:58 | PCM.PREANE ---
Preanesthetic Assessment - Procedure Proposed Procedure: Lap Appy - Anesthesia/Transfusion/Family Hx Anesthesia History: Prior Anesthesia Without Reaction Family History of Anesthesia Reaction: No Transfusion History: No Prior Transfusion(s) Intubation History: Unknown Additional History: stage 3 kidney failure- creatinine is 1.8, rheumatiod arthritis - Review of Systems General: Malaise, Chills Pulmonary: No Symptoms Cardiovascular: Other (HTN, HLD) Gastrointestinal: Abdominal Pain, Decreased Appetite, Nausea, Vomiting Neurological: No Symptoms Other: Reports: Diabetes (type 2), Depression, Anxiety - Physical Assessment NPO Status Date: 11/25/17 NPO Status Time: 02:00 O2 Sat by Pulse Oximetry: 93 Respiratory Rate: 16 Vital Signs: Last Vital Signs Temp 36.4 C 11/25/17 10:54 Pulse 82 11/25/17 10:54 Resp 16 11/25/17 10:54 BP 152/91 H 11/25/17 10:54 Pulse Ox 93 L 11/25/17 10:54 Height: 1.88 m Weight: 90.718 kg ASA Class: 2 Mental Status: Alert & Oriented x3 Dentition: Reports: Broken Tooth/Teeth ("all over" per patient ), Missing Tooth/ Teeth Thyro-Mental Finger Breadths: 3 Mouth Opening Finger Breadths: 3 ROM/Head Extension: Full Lungs: Clear to Auscultation, Normal Respiratory Effort Cardiovascular: Regular Rate, Regular Rhythm - Lab Values: Laboratory Last Values WBC 14.12 K/mm3 (4.23-9.07) H 11/25/17 11:35 RBC 5.29 M/mm3 (4.63-6.08) 11/25/17 11:35 Hgb 15.9 gm/L (13.7-17.5) 11/25/17 11:35 Hct 45.9 % (40.1-51.0) 11/25/17 11:35 MCV 86.8 fl (79.0-92.2) 11/25/17 11:35 MCH 30.1 pg (25.7-32.2) 11/25/17 11:35 MCHC 34.6 g/dl (32.2-35.5) 11/25/17 11:35 RDW Std Deviation 39.2 fL (35.1-43.9) 11/25/17 11:35 Plt Count 265 K/mm3 (163-337) 11/25/17 11:35 MPV 9.8 fl (9.4-12.3) 11/25/17 11:35 Neutrophils % (Manual) 64 % (40-60) H 11/25/17 11:35 Band Neutrophils % 0 % (0-10) 11/25/17 11:35 Lymphocytes % (Manual) 24 % (20-40) 11/25/17 11:35 Atypical Lymphs % 0 % 11/25/17 11:35 Monocytes % (Manual) 5 % (2-10) 11/25/17 11:35 Eosinophils % (Manual) 6 % (0.8-7.0) 11/25/17 11:35 Basophils % (Manual) 1 (0.2-1.2) 11/25/17 11:35 Platelet Estimate Adequate 11/25/17 11:35 Polychromasia 1+ slight 11/25/17 11:35 Anisocytosis 1+ slight 11/25/17 11:35 Microcytosis 2+ moderate 11/25/17 11:35 RBC Morph Comment Abnormal 11/25/17 11:35 Sodium 135 mEq/L (136-145) L 11/25/17 11:35 Potassium 4.4 mEq/L (3.5-5.1) 11/25/17 11:35 Chloride 101 mEq/L (98-107) 11/25/17 11:35 Carbon Dioxide 25 mEq/L (21-32) 11/25/17 11:35 Anion Gap 13.4 (5-15) 11/25/17 11:35 BUN 17 mg/dL (7-18) 11/25/17 11:35 Creatinine 1.8 mg/dL (0.7-1.3) H 11/25/17 11:35 Est Cr Clr Drug Dosing 55.81 mL/min 11/25/17 11:35 Estimated GFR (MDRD) 40 mL/min (>60) 11/25/17 11:35 BUN/Creatinine Ratio 9.4 (14-18) L 11/25/17 11:35 Glucose 135 mg/dL (74-106) H 11/25/17 11:35 Calcium 9.5 mg/dL (8.5-10.1) 11/25/17 11:35 Total Bilirubin 1.5 mg/dL (0.2-1.0) H 11/25/17 11:35 AST 21 U/L (15-37) 11/25/17 11:35 ALT 57 U/L (16-63) 11/25/17 11:35 Alkaline Phosphatase 73 U/L (46-116) 11/25/17 11:35 C-Reactive Protein 5.9 mg/dL (<1.0) H* 11/25/17 11:35 Total Protein 7.4 g/dl (6.4-8.2) 11/25/17 11:35 Albumin 4.1 g/dl (3.4-5.0) 11/25/17 11:35 Globulin 3.3 gm/dL 11/25/17 11:35 Albumin/Globulin Ratio 1.2 (1-2) 11/25/17 11:35 - Allergies Allergies/Adverse Reactions: Allergies Allergy/AdvReac Type Severity Reaction Status Date / Time Sulfa (Sulfonamide Allergy Intermediate Rash Verified 11/25/17 14:42 Antibiotics) - Blood Blood Available: No Product(s) Available: None - Anesthesia Plan Pre-Op Medication Ordered: None - Acknowledgements Anesthesia Type Planned: General Anesthesia Pt an Appropriate Candidate for the Planned Anesthesia: Yes Alternatives and Risks of Anesthesia Discussed w Pt/Guardian: Yes Pt/Guardian Understands and Agrees with Anesthesia Plan: Yes PreAnesthesia Questionnaire HEENT History: Reports: Cataract, Glaucoma Cardiovascular History: Reports: High Cholesterol, Hypertension Gastrointestinal History: Reports: GERD Genitourinary History: Reports: Renal Calculus, Renal Disease Other Genitourinary History: Stage III kidney disease Neurological History: Reports: Migraines Psychiatric History: Reports: Anxiety, Depression Endocrine/Metabolic History: Reports: Diabetes, Type II (uses Tradjenta for control.) - Infectious Disease History Infectious Disease History: Reports: Chicken Pox - Past Surgical History HEENT Surgical History: Reports: Cataract Surgery GI Surgical History: Reports: Cholecystectomy Other Musculoskeletal Surgeries/Procedures:: Knee surgeries - SUBSTANCE USE Smoking Status *Q: Never Smoker Second Hand Smoke Exposure: No Days Per Week of Alcohol Use: 0 (occasional) Recreational Drug Use History: No - HOME MEDS Home Medications: Home Meds Hydrocodone/Acetaminophen [Hydrocodon-Acetaminophn 10-325] 1 - 2 tab PO BEDTIME PRN 02/20/14 [History] Zolpidem [Ambien] 10 mg PO BEDTIME 02/20/14 [History] tiZANidine [Zanaflex] 4 mg PO BID PRN 02/20/14 [History] Adalimumab [Humira] 40 mg PO Q14D 11/11/15 [History] Linagliptin [Tradjenta] 5 mg PO DAILY 11/11/15 [History] Losartan [Cozaar] 25 mg PO DAILY 11/11/15 [History] Potassium Citrate [Potassium Citrate] 10 meq PO BID 11/11/15 [History] risperiDONE 2 mg PO DAILY 11/11/15 [History] Cholecalciferol (Vitamin D3) [Vitamin D3] 5,000 unit PO DAILY 08/06/17 [History] Citalopram Hydrobromide [Celexa] 40 mg PO DAILY 08/06/17 [History] Cyanocobalamin (Vitamin B-12) [Vitamin B-12] 1,000 mcg PO DAILY 08/06/17 [ History] Gabapentin [Neurontin] 300 mg PO TID 08/06/17 [History] atorvaSTATin [Lipitor] 40 mg PO BEDTIME 08/06/17 [History] buPROPion HCl [Wellbutrin Xl] 300 mg PO DAILY 08/06/17 [History] - CURRENT (IN HOUSE) MEDS Current Meds: Current Medications Dextrose/Sodium Chloride (Dextrose 5%-Normal Saline) 1,000 mls @ 500 mls/hr IV ASDIRECTED [facility] Last Admin: 11/25/17 11:57 Dose: 500 mls/hr Cefoxitin Sodium 1 gm/ Premix 50 mls @ 100 mls/hr IV ONETIME ONE Stop: 11/25/17 15:01 Sodium Chloride (Normal Saline) 1,000 mls @ 999 mls/hr IV ASDIRECTED [facility] Last Admin: 11/25/17 14:47 Dose: 999 mls/hr Ketorolac Tromethamine (Toradol) 30 mg IVPUSH ONETIME [facility] Last Admin: 11/25/17 11:55 Dose: 30 mg Sodium Chloride (Saline Flush) 10 ml FLUSH ASDIRECTED PRN PRN Reason: Keep Vein Open Last Admin: 11/25/17 14:38 Dose: 10 ml Discontinued Medications Bupivacaine HCl/Epinephrine Bitart (Marcaine 0.5%/Epinephrine 1:200,000) Confirm Administered Dose 50 ml .ROUTE .STK-MED ONE Stop: 11/25/17 14:38 Diatrizoate Meglum/Diatrizoate Sod (Gastrografin 37%) 120 ml PO ONETIME ONE Stop: 11/25/17 13:32 Last Admin: 11/25/17 13:38 Dose: 90 ml Diphenhydramine HCl (Benadryl) 25 mg IVPUSH ONETIME ONE Stop: 11/25/17 14:16 Last Admin: 11/25/17 14:38 Dose: 25 mg Hydromorphone HCl (Dilaudid) 0.5 mg IVPUSH ONETIME ONE Stop: 11/25/17 12:21 Last Admin: 11/25/17 12:47 Dose: 0.5 mg Levofloxacin/Dextrose 750 mg/ (Premix) 150 mls @ 100 mls/hr IV ONETIME ONE Stop: 11/25/17 13:55 Last Admin: 11/25/17 12:53 Dose: 100 mls/hr Cefoxitin Sodium 2 gm/ Premix 50 mls @ 100 mls/hr IV ONETIME ONE Stop: 11/25/17 14:37 Lidocaine/Epinephrine (Xylocaine 1% With Epinephrine 1:100,000) Confirm Administered Dose 20 ml .ROUTE .STK-MED ONE Stop: 11/25/17 14:37 Metoclopramide HCl (Reglan) 7.5 mg IVPUSH ONETIME ONE Stop: 11/25/17 11:20 Last Admin: 11/25/17 11:53 Dose: 7.5 mg Ondansetron HCl (Zofran) 4 mg IVPUSH ONETIME ONE Stop: 11/25/17 14:16 Last Admin: 11/25/17 14:38 Dose: 4 mg
[2017-11-25] MEDS ORDERED: fentaNYL 250 MCG/5 ML SDV ONE (15:04)
[2017-11-25] MEDS ORDERED: Midazolam 1 MG/ML 2 ML SDV ONE (15:04)
[2017-11-25] MEDS ORDERED: Propofol 200 MG/20 ML SDV ONE (15:04)
[2017-11-25] MEDS ORDERED: Ondansetron 4 MG/2 ML SDV ONE (15:06)
[2017-11-25] MEDS ORDERED: Rocuronium 50 MG/5 ML Vial ONE (15:06)
[2017-11-25] MEDS ORDERED: Lidocaine 1% 4 ML ONE (15:06)
[2017-11-25] MEDS ORDERED: HYDROmorphone 1 MG/ML Syringe ONE (16:01)
[2017-11-25] MEDS ORDERED: Lactated Ringers 1,000 ML ONE (16:03)
[2017-11-25] MEDS ORDERED: Neostigmine Methylsulfate 1 MG/ML 5 ML Syringe ONE (16:35)
[2017-11-25] MEDS ORDERED: Ondansetron 4 MG/2 ML SDV IVPUSH PRN ×2 (16:43→17:06)
--- NOTE | 2017-11-25 16:56 | PCM.OPNOTE ---
- General Post-Op/Procedure Note Date of Surgery/Procedure: 11/25/17 Operative Procedure(s): Laparoscopic appendectomy Findings: Generalized peritonitis with patchy areas of heavy exudate located throughout the small bowel surfaces in the lower abdomen and sigmoid colon. There was gross brownish seropurulent material within the pelvis and along the right paracolic gutter. The appendix was perforated with a fecalith working its way through the proximal third of the appendix and was visualized. There wasn't gross stool within the right lower quadrant or pelvis. The appendix was acutely inflamed heavily indurated with serosal injection. No monica gangrene was seen. Pre Op Diagnosis: Acute appendicitis Post-Op Diagnosis: Acute appendicitis with fecal peritonitis Anesthesia Technique: General ET Tube, Local Primary Surgeon: Uche Swenson Pathology: Perforated appendix EBL in mLs: 3 Complications: None Condition: Good Free Text/Narrative:: After adequate general endotracheal tube anesthesia was obtained the patient's abdomen was prepped and draped sterilely for a laparoscopic appendectomy. After local analgesia was given above the umbilicus a supraumbilical incision was made with a 15 blade through the skin and subcutaneous tissues down to the midline. The linea alba area was opened sharply with a 15 blade followed by insertion of a 12 mm camera port. CO2 pneumoperitoneum was obtained. On exploration the findings are documented above. A 5 mm working port was placed in the suprapubic region and the left lower quadrant after local analgesia was given. With the suction film waxer I was able to dissect the appendix away from the pelvis. There was an opening where a fecalith was eroding through. I aspirated the fecalith into the suction film waxer. I captured with the suction the residual fecal material which flowed from the lumen of the appendix. Just proximal to this perforation I made a window in the appendiceal mesentery sharply. I then fired a stapler load across the base of the appendix and then 3 more loads across the thickened indurated appendiceal mesentery. The appendix was placed in a specimen bag and removed through the umbilicus. I irrigated out the lower abdomen and pelvis and right paracolic gutter with 3 L of saline. There was no obvious bowel injury or bleeding. I decannulated the abdomen under direct vision and there was no bleeding from the port sites. The umbilical port site was closed with a [id number] 0 Vicryl. The subcutaneous tissues and skin were closed Vicryl as well. Steri-Strips and gauze were used for the dressing. I opted to leave the nasogastric tube in place given the ileus he had preop and the small bowel inflammatory findings seen intra-Op. Molding Machine Operator Helper photographs were taken for the patient and for the medical record. There were no procedural complicatons.
[2017-11-25] MEDS ORDERED: Piperacillin/Tazobactam 4.5 GM in Sodium Chloride 0.9% 100 ML IV ONE (17:00)
[2017-11-25] MEDS ORDERED: diphenhydrAMINE 50 MG/ML SDV IVPUSH PRN (17:06)
[2017-11-25] MEDS ORDERED: fentaNYL 100 MCG/2 ML SDV IVPUSH PRN (17:06)
[2017-11-25] MEDS ORDERED: HYDROmorphone 0.5 MG/0.5 ML Syringe IVPUSH PRN (17:06)
--- NOTE | 2017-11-25 17:06 | PCM.POSTAN ---
POST ANESTHESIA ASSESSMENT - MENTAL STATUS Mental Status: Alert, Oriented - VITAL SIGNS Pulse Rate: 109 SaO2: 93 Resp Rate: 11 Blood Pressure: 112/79 Temperature: 36.7 C - RESPIRATORY Respiratory Status: Respiratory Rate WNL, Airway Patent, O2 Saturation Stable, Supplemental Oxygen - CARDIOVASCULAR CV Status: Pulse Rate WNL, Blood Pressure Stable - GASTROINTESTINAL GI Status: No Symptoms Free Text/Narrative:: NGT to stay in over night per Dr Swenson. Pt has illeus with 300 ml of NGT output from surgery. - PAIN Pain Score: 0 - POST OP HYDRATION Hydration Status: Adequate & Stable
[2017-11-25] MEDS: Sodium Chloride 0.9% 1,000 ML IV SCH (19:11)
[2017-11-25] MEDS: Piperacillin/Tazobactam 4.5 GM in Sodium Chloride 0.9% 100 ML IV SCH (20:17)
[2017-11-26] MEDS: HYDROmorphone 0.5 MG/0.5 ML Syringe IVPUSH PRN ×6 (01:00→22:10)
[2017-11-26] MEDS: Piperacillin/Tazobactam 4.5 GM in Sodium Chloride 0.9% 100 ML IV SCH ×3 (01:02→16:41)
[2017-11-26] MEDS: Sodium Chloride 0.9% 1,000 ML IV SCH ×4 (03:25→22:06)
--- NOTE | 2017-11-26 07:42 | CT ---
CT abdomen and pelvis Technique: Multiple axial sections were obtained from above the dome of the diaphragm inferiorly through the pubic symphysis. Intravenous contrast was not utilized. Oral contrast has been given. Comparison: Prior abdominal x-ray performed earlier on the same day, no previous CT exam is available. Findings: Appendix is dilated with surrounding inflammatory change compatible with appendicitis. Findings suspicious for several appendicoliths. Slight increased density within both lung bases which is believed to represent a combination of atelectasis and fibrosis. Liver shows no discrete abnormality. Spleen appears within normal limits. Adrenal glands show no nodule. Kidneys contain multiple nonobstructing calculi. No hydronephrosis is seen. No abnormal calcifications are seen along the course of the ureters. Small hiatal hernia is seen with contrast refluxed into the distal esophagus. Pancreas is normal. Surgical clips seen from prior cholecystectomy. Aorta shows no aneurysmal dilatation. No retroperitoneal adenopathy or mesenteric abnormalities are seen. No pelvic mass or adenopathy is seen. Small fat-containing inguinal hernias are noted. Bone window settings were reviewed which appear within normal limits for the patient's age. Impression: 1. Findings compatible with appendicitis. 2. Other incidental findings as noted above. Diagnostic code #5 Agree with preliminary report issued by [facility] ([facility] preliminary report dictated on 11/25/17, 3:04 PM Central Time)
--- NOTE | 2017-11-26 07:42 | CR ---
Abdomen: Supine view of the abdomen was obtained. Numerous renal calculi seen within both kidneys. Calcifications are seen within the pelvis believed to represent phleboliths. Bowel gas pattern is normal. Bony structures appear within normal limits for the patient's age. Surgical clips are seen from prior cholecystectomy. Impression: 1. Numerous renal calculi. 2. Other incidental findings. Diagnostic code #2
--- NOTE | 2017-11-26 08:33 | PCM48HPAN ---
Post Anesthesia Note - EVALUATION WITHIN 48HRS OF ANESTHETIC Vital Signs in Normal Range: Yes Patient Participated in Evaluation: Yes Respiratory Function Stable: Yes Airway Patent: Yes Cardiovascular Function Stable: Yes Hydration Status Stable: Yes (On IV Fluids) Pain Control Satisfactory: Yes (Comfortable at rest) Nausea and Vomiting Control Satisfactory: Yes Mental Status Recovered: Yes
[2017-11-26] MEDS ORDERED: Albuterol 6.7 GM Inhaler INH PRN (10:50)
[2017-11-26] MEDS: Ketorolac 30 MG/ML SDV IVPUSH PRN ×2 (12:21→18:23)
--- NOTE | 2017-11-26 12:44 | PCM.SURGPN ---
- General Info Date of Service: 11/26/17 POD#: 1 Functional Status: Reports: Pain Controlled, Ambulating, Urinating - Review of Systems Gastrointestinal: Reports: Abdominal Pain - Patient Data Vitals - Most Recent: Last Vital Signs Temp 36.9 C 11/26/17 08:00 Pulse 89 11/26/17 08:00 Resp 18 11/26/17 08:00 BP 93/52 L 11/26/17 08:00 Pulse Ox 91 L 11/26/17 10:29 Weight - Most Recent: 95.935 kg I&O - Last 24 Hours: Intake & Output 11/25/17 11/26/17 11/26/17 22:59 06:59 14:59 Intake Total 300 1198 Output Total 15 150 Balance 285 1048 Lab Results Last 24 Hrs: Laboratory Results - last 24 hr 11/25/17 Range/Units 20:43 POC Glucose 132 H (70-105) mg/dL Med Orders - Current: Current Medications Albuterol (Proventil Hfa) 0 gm INH Q4H PRN PRN Reason: Shortness of Breath Hydromorphone HCl (Dilaudid) 0.5 mg IVPUSH Q1H PRN PRN Reason: Pain (severe 7-10) Last Admin: 11/26/17 07:51 Dose: 0.5 mg Sodium Chloride (Normal Saline) 1,000 mls @ 125 mls/hr IV ASDIRECTED [facility] Last Admin: 11/26/17 11:49 Dose: 125 mls/hr Piperacillin Sod/Tazobactam (Sod 4.5 gm/ Sodium Chloride) 100 mls @ 25 mls/hr IV Q8H [facility] Last Admin: 11/26/17 08:28 Dose: 25 mls/hr Ketorolac Tromethamine (Toradol) 30 mg IVPUSH Q6H PRN PRN Reason: Pain Last Admin: 11/26/17 12:21 Dose: 30 mg Ondansetron HCl (Zofran) 4 mg IVPUSH Q6H PRN PRN Reason: Nausea/Vomiting Sodium Chloride (Saline Flush) 10 ml FLUSH ASDIRECTED PRN PRN Reason: Keep Vein Open Last Admin: 11/25/17 14:38 Dose: 10 ml Discontinued Medications Bupivacaine HCl/Epinephrine Bitart (Marcaine 0.5%/Epinephrine 1:200,000) Confirm Administered Dose 50 ml .ROUTE .STK-MED ONE Stop: 11/25/17 14:38 Last Admin: 11/25/17 15:42 Dose: 9 ml Diatrizoate Meglum/Diatrizoate Sod (Gastrografin 37%) 120 ml PO ONETIME ONE Stop: 11/25/17 13:32 Last Admin: 11/25/17 13:38 Dose: 90 ml Diphenhydramine HCl (Benadryl) 25 mg IVPUSH ONETIME ONE Stop: 11/25/17 14:16 Last Admin: 11/25/17 14:38 Dose: 25 mg Diphenhydramine HCl (Benadryl) 25 mg IVPUSH Q6H PRN PRN Reason: Pruritis Fentanyl (Sublimaze) 50 mcg IVPUSH Q5M PRN PRN Reason: Pain Fentanyl (Sublimaze) Confirm Administered Dose 250 mcg .ROUTE .STK-MED ONE Stop: 11/25/17 15:05 Glycopyrrolate () Confirm Administered Dose 1 mg .ROUTE .STK-MED ONE Stop: 11/25/17 16:36 Hydromorphone HCl (Dilaudid) 0.5 mg IVPUSH ONETIME ONE Stop: 11/25/17 12:21 Last Admin: 11/25/17 12:47 Dose: 0.5 mg Hydromorphone HCl (Dilaudid) 0.5 mg IVPUSH Q15M PRN PRN Reason: Pain (severe 7-10) Hydromorphone HCl (Dilaudid) Confirm Administered Dose 1 mg .ROUTE .STK-MED ONE Stop: 11/25/17 16:02 Dextrose/Sodium Chloride (Dextrose 5%-Normal Saline) 1,000 mls @ 500 mls/hr IV ASDIRECTED [facility] Last Admin: 11/25/17 11:57 Dose: 500 mls/hr Levofloxacin/Dextrose 750 mg/ (Premix) 150 mls @ 100 mls/hr IV ONETIME ONE Stop: 11/25/17 13:55 Last Admin: 11/25/17 12:53 Dose: 100 mls/hr Cefoxitin Sodium 2 gm/ Premix 50 mls @ 100 mls/hr IV ONETIME ONE Stop: 11/25/17 14:37 Last Admin: 11/25/17 14:59 Dose: Not Given Cefoxitin Sodium 1 gm/ Premix 50 mls @ 100 mls/hr IV ONETIME ONE Stop: 11/25/17 15:01 Last Admin: 11/25/17 15:00 Dose: 100 mls/hr Sodium Chloride (Normal Saline) 1,000 mls @ 999 mls/hr IV ASDIRECTED [facility] Last Admin: 11/25/17 14:47 Dose: 999 mls/hr Piperacillin Sod/Tazobactam (Sod 4.5 gm/ Sodium Chloride) 100 mls @ 200 mls/hr IV ONETIME ONE Stop: 11/25/17 17:29 Last Admin: 11/25/17 19:05 Dose: 200 mls/hr Lidocaine HCl (Xylocaine-Mpf 1%) Confirm Administered Dose 4 mls @ as directed .ROUTE .STK-MED ONE Stop: 11/25/17 15:07 Lactated Ringer's (Ringers, Lactated) Confirm Administered Dose 1,000 mls @ as directed .ROUTE .STK-MED ONE Stop: 11/25/17 16:04 Ketorolac Tromethamine (Toradol) 30 mg IVPUSH ONETIME [facility] Last Admin: 11/25/17 11:55 Dose: 30 mg Lidocaine/Epinephrine (Xylocaine 1% With Epinephrine 1:100,000) Confirm Administered Dose 20 ml .ROUTE .STK-MED ONE Stop: 11/25/17 14:37 Last Admin: 11/25/17 15:42 Dose: 9 ml Metoclopramide HCl (Reglan) 7.5 mg IVPUSH ONETIME ONE Stop: 11/25/17 11:20 Last Admin: 11/25/17 11:53 Dose: 7.5 mg Midazolam HCl (Versed 1 Mg/Ml) Confirm Administered Dose 2 mg .ROUTE .STK-MED ONE Stop: 11/25/17 15:05 Neostigmine Methylsulfate (Neostigmine) Confirm Administered Dose 5 mg .ROUTE .STK-MED ONE Stop: 11/25/17 16:36 Ondansetron HCl (Zofran) 4 mg IVPUSH ONETIME ONE Stop: 11/25/17 14:16 Last Admin: 11/25/17 14:38 Dose: 4 mg Ondansetron HCl (Zofran) 4 mg IVPUSH ONETIME PRN PRN Reason: Nausea/Vomiting Ondansetron HCl (Zofran) Confirm Administered Dose 4 mg .ROUTE .STK-MED ONE Stop: 11/25/17 15:07 Propofol (Diprivan 20 Ml) Confirm Administered Dose 200 mg .ROUTE .STK-MED ONE Stop: 11/25/17 15:05 Rocuronium [place] (Zemuron) Confirm Administered Dose 50 mg .ROUTE .STK-MED ONE Stop: 11/25/17 15:07 - Exam GI/Abdominal Exam: Distended (Mild to moderate) - Problem List & Annotations (1) Acute appendicitis with localized peritonitis SNOMED Code(s): 394442907 Code(s): K35.3 - ACUTE APPENDICITIS WITH LOCALIZED PERITONITIS Status: Acute Priority: High Current Visit: Yes - Problem List Review Problem List Initiated/Reviewed/Updated: Yes - My Orders Last 24 Hours: Active Orders 24 hr Category Date Time Status Antiembolic Devices [RC] PER UNIT ROUTINE Care 11/25/17 19:36 Active Cooling Warming Measures [RC] ASDIRECTED Care 11/25/17 17:06 Inactive Albuterol [Proventil HFA] Med 11/26/17 10:50 Active 0 gm INH Q4H PRN Ketorolac [Toradol] Med 11/26/17 12:01 Active 30 mg IVPUSH Q6H PRN Sequential Compression Device [OM.PC] Routine Oth 11/25/17 19:35 Ordered Medication Orders Albuterol (Proventil Hfa) 0 gm INH Q4H PRN PRN Reason: Shortness of Breath Hydromorphone HCl (Dilaudid) 0.5 mg IVPUSH Q1H PRN PRN Reason: Pain (severe 7-10) Last Admin: 11/26/17 07:51 Dose: 0.5 mg Admin: 11/26/17 05:46 Dose: 0.5 mg Admin: 11/26/17 03:14 Dose: 0.5 mg Admin: 11/26/17 01:00 Dose: 0.5 mg Sodium Chloride (Normal Saline) 1,000 mls @ 125 mls/hr IV ASDIRECTED [facility] Last Admin: 11/26/17 11:49 Dose: 125 mls/hr Infusion: 11/26/17 11:25 Dose: 125 mls/hr Admin: 11/26/17 03:25 Dose: 125 mls/hr Infusion: 11/26/17 03:11 Dose: 125 mls/hr Admin: 11/25/17 19:11 Dose: 125 mls/hr Piperacillin Sod/Tazobactam (Sod 4.5 gm/ Sodium Chloride) 100 mls @ 25 mls/hr IV Q8H [facility] Last Admin: 11/26/17 08:28 Dose: 25 mls/hr Infusion: 11/26/17 05:02 Dose: 25 mls/hr Admin: 11/26/17 01:02 Dose: 25 mls/hr Admin: 11/25/17 20:17 Dose: Admin: 11/25/17 20:17 Dose: Admin: 11/25/17 20:17 Dose: Ketorolac Tromethamine (Toradol) 30 mg IVPUSH Q6H PRN PRN Reason: Pain Last Admin: 11/26/17 12:21 Dose: 30 mg Ondansetron HCl (Zofran) 4 mg IVPUSH Q6H PRN PRN Reason: Nausea/Vomiting Sodium Chloride (Saline Flush) 10 ml FLUSH ASDIRECTED PRN PRN Reason: Keep Vein Open Last Admin: 11/25/17 14:38 Dose: 10 ml - Assessment Assessment (Free Text/Narrative):: Stable. We will discontinue NG tube. - Plan Plan (Free Text/Narrative):: Start diet tomorrow.
[2017-11-26] MEDS ORDERED: Sodium Chloride 0.9% 500 ML IV ONE (20:29)
[2017-11-27] MEDS: Sodium Chloride 0.9% 1,000 ML IV SCH (00:26)
[2017-11-27] MEDS: Piperacillin/Tazobactam 4.5 GM in Sodium Chloride 0.9% 100 ML IV SCH ×3 (00:27→17:25)
[2017-11-27] MEDS: HYDROmorphone 0.5 MG/0.5 ML Syringe IVPUSH PRN (00:28)
[2017-11-27] MEDS: Ketorolac 30 MG/ML SDV IVPUSH PRN ×2 (00:29→08:41)
[2017-11-27] MEDS ORDERED: Sodium Chloride 0.9% 10 ML Syringe FLUSH PRN (07:48)
--- NOTE | 2017-11-27 07:51 | PCM.SURGPN ---
- General Info Date of Service: 11/27/17 POD#: 2 Functional Status: Reports: Pain Controlled, Tolerating Diet, Ambulating, Urinating - Review of Systems Gastrointestinal: Reports: Diarrhea, Flatus - Patient Data Vitals - Most Recent: Last Vital Signs Temp 36.8 C 11/27/17 03:46 Pulse 94 11/27/17 03:46 Resp 16 11/27/17 03:46 BP 95/56 L 11/27/17 03:46 Pulse Ox 92 L 11/27/17 03:46 Weight - Most Recent: 96.842 kg I&O - Last 24 Hours: Intake & Output 11/26/17 11/27/17 11/27/17 22:59 06:59 14:59 Intake Total 2128 1118 Output Total 350 300 Balance 1778 818 Med Orders - Current: Current Medications Albuterol (Proventil Hfa) 0 gm INH Q4H PRN PRN Reason: Shortness of Breath Hydromorphone HCl (Dilaudid) 0.5 mg IVPUSH Q1H PRN PRN Reason: Pain (severe 7-10) Last Admin: 11/27/17 00:28 Dose: 0.5 mg Piperacillin Sod/Tazobactam (Sod 4.5 gm/ Sodium Chloride) 100 mls @ 25 mls/hr IV Q8H [facility] Last Admin: 11/27/17 00:27 Dose: 25 mls/hr Ketorolac Tromethamine (Toradol) 30 mg IVPUSH Q6H PRN PRN Reason: Pain Last Admin: 11/27/17 00:29 Dose: 30 mg Ondansetron HCl (Zofran) 4 mg IVPUSH Q6H PRN PRN Reason: Nausea/Vomiting Oxycodone/Acetaminophen (Percocet 325-5 Mg) 1 tab PO Q4H PRN PRN Reason: Pain Sodium Chloride (Saline Flush) 10 ml FLUSH ASDIRECTED PRN PRN Reason: Keep Vein Open Last Admin: 11/25/17 14:38 Dose: 10 ml Sodium Chloride (Saline Flush) 10 ml FLUSH ASDIRECTED PRN PRN Reason: Keep Vein Open Discontinued Medications Bupivacaine HCl/Epinephrine Bitart (Marcaine 0.5%/Epinephrine 1:200,000) Confirm Administered Dose 50 ml .ROUTE .STK-MED ONE Stop: 11/25/17 14:38 Last Admin: 11/25/17 15:42 Dose: 9 ml Diatrizoate Meglum/Diatrizoate Sod (Gastrografin 37%) 120 ml PO ONETIME ONE Stop: 11/25/17 13:32 Last Admin: 11/25/17 13:38 Dose: 90 ml Diphenhydramine HCl (Benadryl) 25 mg IVPUSH ONETIME ONE Stop: 11/25/17 14:16 Last Admin: 11/25/17 14:38 Dose: 25 mg Diphenhydramine HCl (Benadryl) 25 mg IVPUSH Q6H PRN PRN Reason: Pruritis Fentanyl (Sublimaze) 50 mcg IVPUSH Q5M PRN PRN Reason: Pain Fentanyl (Sublimaze) Confirm Administered Dose 250 mcg .ROUTE .STK-MED ONE Stop: 11/25/17 15:05 Glycopyrrolate () Confirm Administered Dose 1 mg .ROUTE .STK-MED ONE Stop: 11/25/17 16:36 Hydromorphone HCl (Dilaudid) 0.5 mg IVPUSH ONETIME ONE Stop: 11/25/17 12:21 Last Admin: 11/25/17 12:47 Dose: 0.5 mg Hydromorphone HCl (Dilaudid) 0.5 mg IVPUSH Q15M PRN PRN Reason: Pain (severe 7-10) Hydromorphone HCl (Dilaudid) Confirm Administered Dose 1 mg .ROUTE .STK-MED ONE Stop: 11/25/17 16:02 Dextrose/Sodium Chloride (Dextrose 5%-Normal Saline) 1,000 mls @ 500 mls/hr IV ASDIRECTED [facility] Last Admin: 11/25/17 11:57 Dose: 500 mls/hr Levofloxacin/Dextrose 750 mg/ (Premix) 150 mls @ 100 mls/hr IV ONETIME ONE Stop: 11/25/17 13:55 Last Admin: 11/25/17 12:53 Dose: 100 mls/hr Cefoxitin Sodium 2 gm/ Premix 50 mls @ 100 mls/hr IV ONETIME ONE Stop: 11/25/17 14:37 Last Admin: 11/25/17 14:59 Dose: Not Given Cefoxitin Sodium 1 gm/ Premix 50 mls @ 100 mls/hr IV ONETIME ONE Stop: 11/25/17 15:01 Last Admin: 11/25/17 15:00 Dose: 100 mls/hr Sodium Chloride (Normal Saline) 1,000 mls @ 999 mls/hr IV ASDIRECTED [facility] Last Admin: 11/25/17 14:47 Dose: 999 mls/hr Sodium Chloride (Normal Saline) 1,000 mls @ 125 mls/hr IV ASDIRECTED [facility] Last Admin: 11/27/17 00:26 Dose: 125 mls/hr Piperacillin Sod/Tazobactam (Sod 4.5 gm/ Sodium Chloride) 100 mls @ 200 mls/hr IV ONETIME ONE Stop: 11/25/17 17:29 Last Admin: 11/25/17 19:05 Dose: 200 mls/hr Lidocaine HCl (Xylocaine-Mpf 1%) Confirm Administered Dose 4 mls @ as directed .ROUTE .STK-MED ONE Stop: 11/25/17 15:07 Lactated Ringer's (Ringers, Lactated) Confirm Administered Dose 1,000 mls @ as directed .ROUTE .STK-MED ONE Stop: 11/25/17 16:04 Sodium Chloride (Normal Saline) 500 mls @ 999 mls/hr IV ONETIME ONE Stop: 11/26/17 20:59 Last Admin: 11/26/17 21:32 Dose: 999 mls/hr Ketorolac Tromethamine (Toradol) 30 mg IVPUSH ONETIME [facility] Last Admin: 11/25/17 11:55 Dose: 30 mg Lidocaine/Epinephrine (Xylocaine 1% With Epinephrine 1:100,000) Confirm Administered Dose 20 ml .ROUTE .STK-MED ONE Stop: 11/25/17 14:37 Last Admin: 11/25/17 15:42 Dose: 9 ml Metoclopramide HCl (Reglan) 7.5 mg IVPUSH ONETIME ONE Stop: 11/25/17 11:20 Last Admin: 11/25/17 11:53 Dose: 7.5 mg Midazolam HCl (Versed 1 Mg/Ml) Confirm Administered Dose 2 mg .ROUTE .STK-MED ONE Stop: 11/25/17 15:05 Neostigmine Methylsulfate (Neostigmine) Confirm Administered Dose 5 mg .ROUTE .STK-MED ONE Stop: 11/25/17 16:36 Ondansetron HCl (Zofran) 4 mg IVPUSH ONETIME ONE Stop: 11/25/17 14:16 Last Admin: 11/25/17 14:38 Dose: 4 mg Ondansetron HCl (Zofran) 4 mg IVPUSH ONETIME PRN PRN Reason: Nausea/Vomiting Ondansetron HCl (Zofran) Confirm Administered Dose 4 mg .ROUTE .STK-MED ONE Stop: 11/25/17 15:07 Propofol (Diprivan 20 Ml) Confirm Administered Dose 200 mg .ROUTE .STK-MED ONE Stop: 11/25/17 15:05 Rocuronium [place] (Zemuron) Confirm Administered Dose 50 mg .ROUTE .STK-MED ONE Stop: 11/25/17 15:07 - Exam GI/Abdominal Exam: Soft (Mild), Distended - Problem List & Annotations (1) Acute appendicitis with localized peritonitis SNOMED Code(s): 660194686 Code(s): K35.3 - ACUTE APPENDICITIS WITH LOCALIZED PERITONITIS Status: Acute Priority: High Current Visit: Yes - Problem List Review Problem List Initiated/Reviewed/Updated: Yes - My Orders Last 24 Hours: Active Orders 24 hr Category Date Time Status Bladder Scan [RC] PRN Care 11/26/17 20:29 Active NPO Now [Nothing per Oral Now Diet] [DIET] Diet 11/27/17 Breakfast Active Regular Diet [DIET] Diet 11/27/17 Lunch Ordered Acetaminophen/oxyCODONE [Percocet 325-5 MG] Med 11/27/17 07:48 Ordered 1 tab PO Q4H PRN Albuterol [Proventil HFA] Med 11/26/17 10:50 Active 0 gm INH Q4H PRN Ketorolac [Toradol] Med 11/26/17 12:01 Active 30 mg IVPUSH Q6H PRN Sodium Chloride 0.9% [Saline Flush] Med 11/27/17 07:48 Ordered 10 ml FLUSH ASDIRECTED PRN Convert IV to Saline Lock [OM.PC] Routine Oth 11/27/17 07:48 Ordered Medication Orders Albuterol (Proventil Hfa) 0 gm INH Q4H PRN PRN Reason: Shortness of Breath Hydromorphone HCl (Dilaudid) 0.5 mg IVPUSH Q1H PRN PRN Reason: Pain (severe 7-10) Last Admin: 11/27/17 00:28 Dose: 0.5 mg Admin: 11/26/17 22:10 Dose: 0.5 mg Admin: 11/26/17 20:15 Dose: 0.5 mg Admin: 11/26/17 07:51 Dose: 0.5 mg Admin: 11/26/17 05:46 Dose: 0.5 mg Admin: 11/26/17 03:14 Dose: 0.5 mg Admin: 11/26/17 01:00 Dose: 0.5 mg Piperacillin Sod/Tazobactam (Sod 4.5 gm/ Sodium Chloride) 100 mls @ 25 mls/hr IV Q8H [facility] Last Admin: 11/27/17 00:27 Dose: 25 mls/hr Infusion: 11/26/17 20:41 Dose: 25 mls/hr Admin: 11/26/17 16:41 Dose: 25 mls/hr Infusion: 11/26/17 12:28 Dose: 25 mls/hr Admin: 11/26/17 08:28 Dose: 25 mls/hr Infusion: 11/26/17 05:02 Dose: 25 mls/hr Admin: 11/26/17 01:02 Dose: 25 mls/hr Admin: 11/25/17 20:17 Dose: Admin: 11/25/17 20:17 Dose: Admin: 11/25/17 20:17 Dose: Ketorolac Tromethamine (Toradol) 30 mg IVPUSH Q6H PRN PRN Reason: Pain Last Admin: 11/27/17 00:29 Dose: 30 mg Admin: 11/26/17 18:23 Dose: 30 mg Admin: 11/26/17 12:21 Dose: 30 mg Ondansetron HCl (Zofran) 4 mg IVPUSH Q6H PRN PRN Reason: Nausea/Vomiting Oxycodone/Acetaminophen (Percocet 325-5 Mg) 1 tab PO Q4H PRN PRN Reason: Pain Sodium Chloride (Saline Flush) 10 ml FLUSH ASDIRECTED PRN PRN Reason: Keep Vein Open Last Admin: 11/25/17 14:38 Dose: 10 ml Sodium Chloride (Saline Flush) 10 ml FLUSH ASDIRECTED PRN PRN Reason: Keep Vein Open - Assessment Assessment (Free Text/Narrative):: Bowel function returned today. - Plan Plan (Free Text/Narrative):: Regular diet. Continue IV antibiotics.
[2017-11-27] MEDS: Acetaminophen/oxyCODONE 325-5 MG Tab PO PRN ×3 (08:44→22:34)
[2017-11-27] MEDS: Saccharomyces Boulardii (Probiotic) 250 MG Cap PO SCH (17:25)
[2017-11-28] MEDS: Piperacillin/Tazobactam 4.5 GM in Sodium Chloride 0.9% 100 ML IV SCH ×3 (00:28→16:14)
[2017-11-28] MEDS: Acetaminophen/oxyCODONE 325-5 MG Tab PO PRN ×5 (04:42→20:30)
[2017-11-28] MEDS ORDERED: Zolpidem 5 MG Tab PO PRN (07:48)
[2017-11-28] MEDS ORDERED: Loperamide 2 MG Cap PO PRN (07:49)
--- NOTE | 2017-11-28 07:55 | PCM.SURGPN ---
- General Info Date of Service: 11/28/17 Functional Status: Reports: Pain Controlled, Tolerating Diet, Ambulating, Urinating - Review of Systems Gastrointestinal: Reports: Diarrhea - Patient Data Vitals - Most Recent: Last Vital Signs Temp 37.2 C 11/28/17 00:17 Pulse 100 11/28/17 00:17 Resp 16 11/28/17 00:17 BP 124/72 11/28/17 00:17 Pulse Ox 93 L 11/28/17 00:17 Weight - Most Recent: 96.303 kg I&O - Last 24 Hours: Intake & Output 11/27/17 11/28/17 11/28/17 22:59 06:59 14:59 Intake Total 1245 900 Output Total 200 Balance 1045 900 Med Orders - Current: Current Medications Albuterol (Proventil Hfa) 0 gm INH Q4H PRN PRN Reason: Shortness of Breath Hydromorphone HCl (Dilaudid) 0.5 mg IVPUSH Q1H PRN PRN Reason: Pain (severe 7-10) Last Admin: 11/27/17 00:28 Dose: 0.5 mg Piperacillin Sod/Tazobactam (Sod 4.5 gm/ Sodium Chloride) 100 mls @ 25 mls/hr IV Q8H [facility] Last Admin: 11/28/17 00:28 Dose: 25 mls/hr Ketorolac Tromethamine (Toradol) 30 mg IVPUSH Q6H PRN PRN Reason: Pain Last Admin: 11/27/17 08:41 Dose: 30 mg Loperamide HCl (Imodium) 2 mg PO Q4H PRN PRN Reason: Diarrhea Ondansetron HCl (Zofran) 4 mg IVPUSH Q6H PRN PRN Reason: Nausea/Vomiting Oxycodone/Acetaminophen (Percocet 325-5 Mg) 1 tab PO Q4H PRN PRN Reason: Pain Last Admin: 11/28/17 04:42 Dose: 1 tab Saccharomyces Boulardii (Florastor) 250 mg PO DAILY [facility] Last Admin: 11/27/17 17:25 Dose: 250 mg Sodium Chloride (Saline Flush) 10 ml FLUSH ASDIRECTED PRN PRN Reason: Keep Vein Open Last Admin: 11/25/17 14:38 Dose: 10 ml Zolpidem Tartrate (Ambien) 5 mg PO BEDTIME PRN PRN Reason: Insomnia Discontinued Medications Bupivacaine HCl/Epinephrine Bitart (Marcaine 0.5%/Epinephrine 1:200,000) Confirm Administered Dose 50 ml .ROUTE .STK-MED ONE Stop: 11/25/17 14:38 Last Admin: 11/25/17 15:42 Dose: 9 ml Diatrizoate Meglum/Diatrizoate Sod (Gastrografin 37%) 120 ml PO ONETIME ONE Stop: 11/25/17 13:32 Last Admin: 11/25/17 13:38 Dose: 90 ml Diphenhydramine HCl (Benadryl) 25 mg IVPUSH ONETIME ONE Stop: 11/25/17 14:16 Last Admin: 11/25/17 14:38 Dose: 25 mg Diphenhydramine HCl (Benadryl) 25 mg IVPUSH Q6H PRN PRN Reason: Pruritis Fentanyl (Sublimaze) 50 mcg IVPUSH Q5M PRN PRN Reason: Pain Fentanyl (Sublimaze) Confirm Administered Dose 250 mcg .ROUTE .STK-MED ONE Stop: 11/25/17 15:05 Glycopyrrolate () Confirm Administered Dose 1 mg .ROUTE .STK-MED ONE Stop: 11/25/17 16:36 Hydromorphone HCl (Dilaudid) 0.5 mg IVPUSH ONETIME ONE Stop: 11/25/17 12:21 Last Admin: 11/25/17 12:47 Dose: 0.5 mg Hydromorphone HCl (Dilaudid) 0.5 mg IVPUSH Q15M PRN PRN Reason: Pain (severe 7-10) Hydromorphone HCl (Dilaudid) Confirm Administered Dose 1 mg .ROUTE .STK-MED ONE Stop: 11/25/17 16:02 Dextrose/Sodium Chloride (Dextrose 5%-Normal Saline) 1,000 mls @ 500 mls/hr IV ASDIRECTED [facility] Last Admin: 11/25/17 11:57 Dose: 500 mls/hr Levofloxacin/Dextrose 750 mg/ (Premix) 150 mls @ 100 mls/hr IV ONETIME ONE Stop: 11/25/17 13:55 Last Admin: 11/25/17 12:53 Dose: 100 mls/hr Cefoxitin Sodium 2 gm/ Premix 50 mls @ 100 mls/hr IV ONETIME ONE Stop: 11/25/17 14:37 Last Admin: 11/25/17 14:59 Dose: Not Given Cefoxitin Sodium 1 gm/ Premix 50 mls @ 100 mls/hr IV ONETIME ONE Stop: 11/25/17 15:01 Last Admin: 11/25/17 15:00 Dose: 100 mls/hr Sodium Chloride (Normal Saline) 1,000 mls @ 999 mls/hr IV ASDIRECTED [facility] Last Admin: 11/25/17 14:47 Dose: 999 mls/hr Sodium Chloride (Normal Saline) 1,000 mls @ 125 mls/hr IV ASDIRECTED [facility] Last Admin: 11/27/17 00:26 Dose: 125 mls/hr Piperacillin Sod/Tazobactam (Sod 4.5 gm/ Sodium Chloride) 100 mls @ 200 mls/hr IV ONETIME ONE Stop: 11/25/17 17:29 Last Admin: 11/25/17 19:05 Dose: 200 mls/hr Lidocaine HCl (Xylocaine-Mpf 1%) Confirm Administered Dose 4 mls @ as directed .ROUTE .STK-MED ONE Stop: 11/25/17 15:07 Lactated Ringer's (Ringers, Lactated) Confirm Administered Dose 1,000 mls @ as directed .ROUTE .STK-MED ONE Stop: 11/25/17 16:04 Sodium Chloride (Normal Saline) 500 mls @ 999 mls/hr IV ONETIME ONE Stop: 11/26/17 20:59 Last Admin: 11/26/17 21:32 Dose: 999 mls/hr Ketorolac Tromethamine (Toradol) 30 mg IVPUSH ONETIME [facility] Last Admin: 11/25/17 11:55 Dose: 30 mg Lidocaine/Epinephrine (Xylocaine 1% With Epinephrine 1:100,000) Confirm Administered Dose 20 ml .ROUTE .STK-MED ONE Stop: 11/25/17 14:37 Last Admin: 11/25/17 15:42 Dose: 9 ml Metoclopramide HCl (Reglan) 7.5 mg IVPUSH ONETIME ONE Stop: 11/25/17 11:20 Last Admin: 11/25/17 11:53 Dose: 7.5 mg Midazolam HCl (Versed 1 Mg/Ml) Confirm Administered Dose 2 mg .ROUTE .STK-MED ONE Stop: 11/25/17 15:05 Neostigmine Methylsulfate (Neostigmine) Confirm Administered Dose 5 mg .ROUTE .STK-MED ONE Stop: 11/25/17 16:36 Ondansetron HCl (Zofran) 4 mg IVPUSH ONETIME ONE Stop: 11/25/17 14:16 Last Admin: 11/25/17 14:38 Dose: 4 mg Ondansetron HCl (Zofran) 4 mg IVPUSH ONETIME PRN PRN Reason: Nausea/Vomiting Ondansetron HCl (Zofran) Confirm Administered Dose 4 mg .ROUTE .STK-MED ONE Stop: 11/25/17 15:07 Propofol (Diprivan 20 Ml) Confirm Administered Dose 200 mg .ROUTE .STK-MED ONE Stop: 11/25/17 15:05 Rocuronium [place] (Zemuron) Confirm Administered Dose 50 mg .ROUTE .STK-MED ONE Stop: 11/25/17 15:07 Sodium Chloride (Saline Flush) 10 ml FLUSH ASDIRECTED PRN PRN Reason: Keep Vein Open - Exam Wound/Incisions: Dressing Dry and Intact Psy/Mental Status: Alert, Normal Affect - Problem List & Annotations (1) Acute appendicitis with localized peritonitis SNOMED Code(s): 209870599 Code(s): K35.3 - ACUTE APPENDICITIS WITH LOCALIZED PERITONITIS Status: Acute Priority: High Current Visit: Yes - Problem List Review Problem List Initiated/Reviewed/Updated: Yes - My Orders Last 24 Hours: Active Orders 24 hr Category Date Time Status Blood Glucose Check, Bedside [] ONETIME Care 11/28/17 07:47 Active Regular Diet [DIET] Diet 11/27/17 Lunch Active Acetaminophen/oxyCODONE [Percocet 325-5 MG] Med 11/27/17 07:48 Active 1 tab PO Q4H PRN Loperamide [Imodium] Med 11/28/17 07:49 Ordered 2 mg PO Q4H PRN Losartan [Cozaar] Med 11/28/17 09:00 Ordered 25 mg PO DAILY Saccharomyces Boulardii [Florastor] Med 11/27/17 17:00 Active 250 mg PO DAILY Timolol Maleate [Timoptic 0.5% Ophth Soln] Med 11/28/17 09:00 Ordered See Dose Instructions EYEBOTH DAILY Zolpidem [Ambien] Med 11/28/17 07:48 Ordered 5 mg PO BEDTIME PRN risperiDONE [RisperiDAL] Med 11/28/17 21:00 Ordered 2 mg PO BEDTIME Convert IV to Saline Lock [OM.PC] Routine Oth 11/27/17 07:48 Ordered Medication Orders Albuterol (Proventil Hfa) 0 gm INH Q4H PRN PRN Reason: Shortness of Breath Hydromorphone HCl (Dilaudid) 0.5 mg IVPUSH Q1H PRN PRN Reason: Pain (severe 7-10) Last Admin: 11/27/17 00:28 Dose: 0.5 mg Admin: 11/26/17 22:10 Dose: 0.5 mg Admin: 11/26/17 20:15 Dose: 0.5 mg Admin: 11/26/17 07:51 Dose: 0.5 mg Admin: 11/26/17 05:46 Dose: 0.5 mg Admin: 11/26/17 03:14 Dose: 0.5 mg Admin: 11/26/17 01:00 Dose: 0.5 mg Piperacillin Sod/Tazobactam (Sod 4.5 gm/ Sodium Chloride) 100 mls @ 25 mls/hr IV Q8H LULA Last Admin: 11/28/17 00:28 Dose: 25 mls/hr Infusion: 11/27/17 21:25 Dose: 25 mls/hr Admin: 11/27/17 17:25 Dose: 25 mls/hr Infusion: 11/27/17 12:42 Dose: 25 mls/hr Admin: 11/27/17 08:42 Dose: 25 mls/hr Infusion: 11/27/17 04:27 Dose: 25 mls/hr Admin: 11/27/17 00:27 Dose: 25 mls/hr Infusion: 11/26/17 20:41 Dose: 25 mls/hr Admin: 11/26/17 16:41 Dose: 25 mls/hr Infusion: 11/26/17 12:28 Dose: 25 mls/hr Admin: 11/26/17 08:28 Dose: 25 mls/hr Infusion: 11/26/17 05:02 Dose: 25 mls/hr Admin: 11/26/17 01:02 Dose: 25 mls/hr Admin: 11/25/17 20:17 Dose: Admin: 11/25/17 20:17 Dose: Admin: 11/25/17 20:17 Dose: Ketorolac Tromethamine (Toradol) 30 mg IVPUSH Q6H PRN PRN Reason: Pain Last Admin: 11/27/17 08:41 Dose: 30 mg Admin: 11/27/17 00:29 Dose: 30 mg Admin: 11/26/17 18:23 Dose: 30 mg Admin: 11/26/17 12:21 Dose: 30 mg Loperamide HCl (Imodium) 2 mg PO Q4H PRN PRN Reason: Diarrhea Ondansetron HCl (Zofran) 4 mg IVPUSH Q6H PRN PRN Reason: Nausea/Vomiting Oxycodone/Acetaminophen (Percocet 325-5 Mg) 1 tab PO Q4H PRN PRN Reason: Pain Last Admin: 11/28/17 04:42 Dose: 1 tab Admin: 11/27/17 22:34 Dose: 1 tab Admin: 11/27/17 15:38 Dose: 1 tab Admin: 11/27/17 08:44 Dose: 1 tab Saccharomyces Boulardii (Florastor) 250 mg PO DAILY LULA Last Admin: 11/27/17 17:25 Dose: 250 mg Sodium Chloride (Saline Flush) 10 ml FLUSH ASDIRECTED PRN PRN Reason: Keep Vein Open Last Admin: 11/25/17 14:38 Dose: 10 ml Zolpidem Tartrate (Ambien) 5 mg PO BEDTIME PRN PRN Reason: Insomnia - Assessment Assessment (Free Text/Narrative):: Tolerating diet. - Plan Plan (Free Text/Narrative):: Restarting medications.
[2017-11-28] MEDS: Saccharomyces Boulardii (Probiotic) 250 MG Cap PO SCH (08:36)
[2017-11-28] MEDS: Losartan 25 MG Tab PO SCH (08:37)
[2017-11-28] MEDS: Timolol Maleate 0.5% Ophth Soln 5 ML Bottle EYEBOTH SCH (08:37)
[2017-11-28] MEDS: risperiDONE 1 MG Tab PO SCH (20:30)
[2017-11-29] MEDS: Piperacillin/Tazobactam 4.5 GM in Sodium Chloride 0.9% 100 ML IV SCH ×3 (01:43→16:30)
[2017-11-29] MEDS: Acetaminophen/oxyCODONE 325-5 MG Tab PO PRN ×5 (01:44→20:27)
--- NOTE | 2017-11-29 08:20 | PCM.SURGPN ---
- General Info Date of Service: 11/29/17 Functional Status: Reports: Other (Complains of lower abdominal discomfort) - Review of Systems Gastrointestinal: Reports: Abdominal Pain - Patient Data Vitals - Most Recent: Last Vital Signs Temp 36.9 C 11/29/17 07:48 Pulse 91 11/29/17 07:48 Resp 14 11/29/17 07:48 BP 135/81 11/29/17 07:48 Pulse Ox 93 L 11/29/17 07:48 Weight - Most Recent: 95.98 kg I&O - Last 24 Hours: Intake & Output 11/28/17 11/29/17 11/29/17 22:59 06:59 14:59 Intake Total 1460 700 Output Total 675 Balance 1460 25 Lab Results Last 24 Hrs: Laboratory Results - last 24 hr 11/28/17 11/28/17 11/29/17 Range/Units 08:34 11:23 07:29 POC Glucose 159 H 149 H 102 (70-105) mg/dL Med Orders - Current: Current Medications Albuterol (Proventil Hfa) 0 gm INH Q4H PRN PRN Reason: Shortness of Breath Hydromorphone HCl (Dilaudid) 0.5 mg IVPUSH Q1H PRN PRN Reason: Pain (severe 7-10) Last Admin: 11/27/17 00:28 Dose: 0.5 mg Piperacillin Sod/Tazobactam (Sod 4.5 gm/ Sodium Chloride) 100 mls @ 25 mls/hr IV Q8H [facility] Last Admin: 11/29/17 01:43 Dose: 25 mls/hr Ketorolac Tromethamine (Toradol) 30 mg IVPUSH Q6H PRN PRN Reason: Pain Last Admin: 11/27/17 08:41 Dose: 30 mg Loperamide HCl (Imodium) 2 mg PO Q4H PRN PRN Reason: Diarrhea Losartan Potassium (Cozaar) 25 mg PO DAILY [facility] Last Admin: 11/28/17 08:37 Dose: 25 mg Ondansetron HCl (Zofran) 4 mg IVPUSH Q6H PRN PRN Reason: Nausea/Vomiting Oxycodone/Acetaminophen (Percocet 325-5 Mg) 1 tab PO Q4H PRN PRN Reason: Pain Last Admin: 11/29/17 05:55 Dose: 1 tab Risperidone (Risperidal) 2 mg PO BEDTIME [facility] Last Admin: 11/28/17 20:30 Dose: 2 mg Saccharomyces Boulardii (Florastor) 250 mg PO DAILY [facility] Last Admin: 11/28/17 08:36 Dose: 250 mg Sodium Chloride (Saline Flush) 10 ml FLUSH ASDIRECTED PRN PRN Reason: Keep Vein Open Last Admin: 11/25/17 14:38 Dose: 10 ml Timolol Maleate (Timoptic 0.5% Ophth Soln) 0 ml EYEBOTH DAILY [facility] Last Admin: 11/28/17 08:37 Dose: 1 drop Zolpidem Tartrate (Ambien) 5 mg PO BEDTIME PRN PRN Reason: Insomnia Discontinued Medications Bupivacaine HCl/Epinephrine Bitart (Marcaine 0.5%/Epinephrine 1:200,000) Confirm Administered Dose 50 ml .ROUTE .STK-MED ONE Stop: 11/25/17 14:38 Last Admin: 11/25/17 15:42 Dose: 9 ml Diatrizoate Meglum/Diatrizoate Sod (Gastrografin 37%) 120 ml PO ONETIME ONE Stop: 11/25/17 13:32 Last Admin: 11/25/17 13:38 Dose: 90 ml Diphenhydramine HCl (Benadryl) 25 mg IVPUSH ONETIME ONE Stop: 11/25/17 14:16 Last Admin: 11/25/17 14:38 Dose: 25 mg Diphenhydramine HCl (Benadryl) 25 mg IVPUSH Q6H PRN PRN Reason: Pruritis Fentanyl (Sublimaze) 50 mcg IVPUSH Q5M PRN PRN Reason: Pain Fentanyl (Sublimaze) Confirm Administered Dose 250 mcg .ROUTE .STK-MED ONE Stop: 11/25/17 15:05 Glycopyrrolate () Confirm Administered Dose 1 mg .ROUTE .STK-MED ONE Stop: 11/25/17 16:36 Hydromorphone HCl (Dilaudid) 0.5 mg IVPUSH ONETIME ONE Stop: 11/25/17 12:21 Last Admin: 11/25/17 12:47 Dose: 0.5 mg Hydromorphone HCl (Dilaudid) 0.5 mg IVPUSH Q15M PRN PRN Reason: Pain (severe 7-10) Hydromorphone HCl (Dilaudid) Confirm Administered Dose 1 mg .ROUTE .K-MED ONE Stop: 11/25/17 16:02 Dextrose/Sodium Chloride (Dextrose 5%-Normal Saline) 1,000 mls @ 500 [facility]ls[facility] Admin: 11/25/17 11:57 Dose: 500 mls/hr Levofloxacin/Dextrose 750 mg/ (Premix) 150 mls @ 100 mls/hr IV ONETIME ONE Stop: 11/25/17 13:55 Last Admin: 11/25/17 12:53 Dose: 100 mls/hr Cefoxitin Sodium 2 gm/ Premix 50 mls @ 100 mls/hr IV ONETIME ONE Stop: 11/25/17 14:37 Last Admin: 11/25/17 14:59 Dose: Not Given Cefoxitin Sodium 1 gm/ Premix 50 mls @ 100 mls/hr IV ONETIME ONE Stop: 11/25/17 15:01 Last Admin: 11/25/17 15:00 Dose: 100 mls/hr Sodium Chloride (Normal Saline) 1,000 mls [facility] Admin: 11/25/17 14:47 Dose: 999 mls/hr Sodium Chloride (Normal Saline) 1,000 mls @ [facility] Last Admin: 11/27/17 00:26 Dose: 125 mls/hr Piperacillin Sod/Tazobactam (Sod 4.5 gm/ Sodium Chloride) 100 mls @ 200 mls/hr IV ONETIME ONE Stop: 11/25/17 17:29 Last Admin: 11/25/17 19:05 Dose: 200 mls/hr Lidocaine HCl (Xylocaine-Mpf 1%) Confirm Administered Dose 4 mls @ as directed .ROUTE .[facility] ONE Stop: 11/25/17 15:07 Lactated Ringer's (Ringers, Lactated) Confirm Administered Dose 1,000 mls @ as directed .ROUTE .[facility] ONE Stop: 11/25/17 16:04 Sodium Chloride (Normal Saline) 500 mls @ 999 mls/hr IV ONETIME ONE Stop: 11/26/17 20:59 Last Admin: 11/26/17 21:32 Dose: 999 mls/hr Ketorolac Tromethamine (Toradol) 30 mg IVPUSH ONETIME [facility] Last Admin: 11/25/17 11:55 Dose: 30 mg Lidocaine/Epinephrine (Xylocaine 1% With Epinephrine 1:100,000) Confirm Administered Dose 20 ml .ROUTE .STK-MED ONE Stop: 11/25/17 14:37 Last Admin: 11/25/17 15:42 Dose: 9 ml Metoclopramide HCl (Reglan) 7.5 mg IVPUSH ONETIME ONE Stop: 11/25/17 11:20 Last Admin: 11/25/17 11:53 Dose: 7.5 mg Midazolam HCl (Versed 1 Mg/Ml) Confirm Administered Dose 2 mg .ROUTE .STK-MED ONE Stop: 11/25/17 15:05 Neostigmine Methylsulfate (Neostigmine) Confirm Administered Dose 5 mg .ROUTE .STK-MED ONE Stop: 11/25/17 16:36 Ondansetron HCl (Zofran) 4 mg IVPUSH ONETIME ONE Stop: 11/25/17 14:16 Last Admin: 11/25/17 14:38 Dose: 4 mg Ondansetron HCl (Zofran) 4 mg IVPUSH ONETIME PRN PRN Reason: Nausea/Vomiting Ondansetron HCl (Zofran) Confirm Administered Dose 4 mg .ROUTE .STK-MED ONE Stop: 11/25/17 15:07 Propofol (Diprivan 20 Ml) Confirm Administered Dose 200 mg .ROUTE .STK-MED ONE Stop: 11/25/17 15:05 Rocuronium [place] (Zemuron) Confirm Administered Dose 50 mg .ROUTE .STK-MED ONE Stop: 11/25/17 15:07 Sodium Chloride (Saline Flush) 10 ml FLUSH ASDIRECTED PRN PRN Reason: Keep Vein Open - Exam Wound/Incisions: Dressing Dry and Intact, No Drainage GI/Abdominal Exam: Soft, Non-Tender - Problem List & Annotations (1) Acute appendicitis with localized peritonitis SNOMED Code(s): 910211432 Code(s): K35.3 - ACUTE APPENDICITIS WITH LOCALIZED PERITONITIS Status: Acute Priority: High Current Visit: Yes - Problem List Review Problem List Initiated/Reviewed/Updated: Yes - My Orders Last 24 Hours: Active Orders 24 hr Category Date Time Status Blood Glucose Check, Bedside [RC] ONETIME Care 11/28/17 07:47 Active May Shower [RC] ASDIRECTED Care 11/28/17 07:55 Active BMP [BASIC METABOLIC PANEL,BMP] [CHEM] Routine Lab 11/29/17 08:17 Ordered CBC WITH AUTO DIFF [HEME] Routine Lab 11/29/17 08:17 Ordered Loperamide [Imodium] Med 11/28/17 07:49 Active 2 mg PO Q4H PRN Losartan [Cozaar] Med 11/28/17 09:00 Active 25 mg PO DAILY Timolol Maleate [Timoptic 0.5% Ophth Soln] Med 11/28/17 09:00 Active See Dose Instructions EYEBOTH DAILY Zolpidem [Ambien] Med 11/28/17 07:48 Active 5 mg PO BEDTIME PRN risperiDONE [RisperiDAL] Med 11/28/17 21:00 Active 2 mg PO BEDTIME Medication Orders Albuterol (Proventil Hfa) 0 gm INH Q4H PRN PRN Reason: Shortness of Breath Hydromorphone HCl (Dilaudid) 0.5 mg IVPUSH Q1H PRN PRN Reason: Pain (severe 7-10) Last Admin: 11/27/17 00:28 Dose: 0.5 mg Admin: 11/26/17 22:10 Dose: 0.5 mg Admin: 11/26/17 20:15 Dose: 0.5 mg Admin: 11/26/17 07:51 Dose: 0.5 mg Admin: 11/26/17 05:46 Dose: 0.5 mg Admin: 11/26/17 03:14 Dose: 0.5 mg Admin: 11/26/17 01:00 Dose: 0.5 mg Piperacillin Sod/Tazobactam (Sod 4.5 gm/ Sodium Chloride) 100 mls @ 25 mls/hr IV Q8H [facility] Last Admin: 11/29/17 01:43 Dose: 25 mls/hr Infusion: 11/28/17 20:14 Dose: 25 mls/hr Admin: 11/28/17 16:14 Dose: 25 mls/hr Infusion: 11/28/17 12:40 Dose: 0 mls/hr Admin: 11/28/17 08:39 Dose: 25 mls/hr Infusion: 11/28/17 04:28 Dose: 25 mls/hr Admin: 11/28/17 00:28 Dose: 25 mls/hr Infusion: 11/27/17 21:25 Dose: 25 mls/hr Admin: 11/27/17 17:25 Dose: 25 mls/hr Infusion: 11/27/17 12:42 Dose: 25 mls/hr Admin: 11/27/17 08:42 Dose: 25 mls/hr Infusion: 11/27/17 04:27 Dose: 25 mls/hr Admin: 11/27/17 00:27 Dose: 25 mls/hr Infusion: 11/26/17 20:41 Dose: 25 mls/hr Admin: 11/26/17 16:41 Dose: 25 mls/hr Infusion: 11/26/17 12:28 Dose: 25 mls/hr Admin: 11/26/17 08:28 Dose: 25 mls/hr Infusion: 11/26/17 05:02 Dose: 25 mls/hr Admin: 11/26/17 01:02 Dose: 25 mls/hr Admin: 11/25/17 20:17 Dose: Admin: 11/25/17 20:17 Dose: Admin: 11/25/17 20:17 Dose: Ketorolac Tromethamine (Toradol) 30 mg IVPUSH Q6H PRN PRN Reason: Pain Last Admin: 11/27/17 08:41 Dose: 30 mg Admin: 11/27/17 00:29 Dose: 30 mg Admin: 11/26/17 18:23 Dose: 30 mg Admin: 11/26/17 12:21 Dose: 30 mg Loperamide HCl (Imodium) 2 mg PO Q4H PRN PRN Reason: Diarrhea Losartan Potassium (Cozaar) 25 mg PO DAILY [facility] Last Admin: 11/28/17 08:37 Dose: 25 mg Ondansetron HCl (Zofran) 4 mg IVPUSH Q6H PRN PRN Reason: Nausea/Vomiting Oxycodone/Acetaminophen (Percocet 325-5 Mg) 1 tab PO Q4H PRN PRN Reason: Pain Last Admin: 11/29/17 05:55 Dose: 1 tab Admin: 11/29/17 01:44 Dose: 1 tab Admin: 11/28/17 20:30 Dose: 1 tab Admin: 11/28/17 16:14 Dose: 1 tab Admin: 11/28/17 12:14 Dose: 1 tab Admin: 11/28/17 08:37 Dose: 1 tab Admin: 11/28/17 04:42 Dose: 1 tab Admin: 11/27/17 22:34 Dose: 1 tab Admin: 11/27/17 15:38 Dose: 1 tab Admin: 11/27/17 08:44 Dose: 1 tab Risperidone (Risperidal) 2 mg PO BEDTIME [facility] Last Admin: 11/28/17 20:30 Dose: 2 mg Saccharomyces Boulardii (Florastor) 250 mg PO DAILY [facility] Last Admin: 11/28/17 08:36 Dose: 250 mg Admin: 11/27/17 17:25 Dose: 250 mg Sodium Chloride (Saline Flush) 10 ml FLUSH ASDIRECTED PRN PRN Reason: Keep Vein Open Last Admin: 11/25/17 14:38 Dose: 10 ml Timolol Maleate (Timoptic 0.5% Ophth Soln) 0 ml EYEBOTH DAILY [facility] Last Admin: 11/28/17 08:37 Dose: 1 drop Zolpidem Tartrate (Ambien) 5 mg PO BEDTIME PRN PRN Reason: Insomnia - Assessment Assessment (Free Text/Narrative):: Progressing. - Plan Plan (Free Text/Narrative):: CBC and BMP today.
[2017-11-29] MEDS: Losartan 25 MG Tab PO SCH (08:28)
[2017-11-29] MEDS: Timolol Maleate 0.5% Ophth Soln 5 ML Bottle EYEBOTH SCH (08:29)
[2017-11-29] MEDS: Saccharomyces Boulardii (Probiotic) 250 MG Cap PO SCH (08:29)
[2017-11-29] MEDS ORDERED: Potassium Chloride 10% 20 MEQ/15 ML Soln 15 ML UD Cup PO SCH (09:30)
[2017-11-29] MEDS: risperiDONE 1 MG Tab PO SCH (20:29)
[2017-11-29] MEDS: Potassium Chloride 10 MEQ Tab.ER PO SCH (20:29)
[2017-11-29] MEDS ORDERED: POTASSIUM CITRATE 10 MEQ PO SCH (21:00)
[2017-11-30] MEDS: Piperacillin/Tazobactam 4.5 GM in Sodium Chloride 0.9% 100 ML IV SCH ×3 (00:42→16:17)
[2017-11-30] MEDS: Acetaminophen/oxyCODONE 325-5 MG Tab PO PRN ×4 (00:51→23:36)
[2017-11-30] MEDS: Saccharomyces Boulardii (Probiotic) 250 MG Cap PO SCH (08:31)
[2017-11-30] MEDS: Potassium Chloride 10 MEQ Tab.ER PO SCH ×2 (08:31→20:09)
[2017-11-30] MEDS: Losartan 25 MG Tab PO SCH (08:32)
[2017-11-30] MEDS: Timolol Maleate 0.5% Ophth Soln 5 ML Bottle EYEBOTH SCH (08:34)
[2017-11-30] MEDS ORDERED: HYDROmorphone 1 MG/ML Syringe IVPUSH PRN (12:01)
--- NOTE | 2017-11-30 12:07 | PCM.SURGPN ---
- General Info Date of Service: 11/30/17 Functional Status: Reports: Other (Percocets not controlling pain. Patient was reminded to use Dilaudid if needed.) - Review of Systems Gastrointestinal: Reports: Diarrhea, Flatus - Patient Data Vitals - Most Recent: Last Vital Signs Temp 36.2 C 11/30/17 08:30 Pulse 94 11/30/17 08:30 Resp 16 11/30/17 08:30 BP 155/87 H 11/30/17 08:32 Pulse Ox 92 L 11/30/17 08:30 Weight - Most Recent: 95.254 kg I&O - Last 24 Hours: Intake & Output 11/29/17 11/30/17 11/30/17 22:59 06:59 14:59 Intake Total 1510 500 Output Total 750 Balance 760 500 Lab Results Last 24 Hrs: Laboratory Results - last 24 hr 11/29/17 11/29/17 11/29/17 Range/Units 11:12 15:00 16:05 POC Glucose 159 H 152 H (70-105) mg/dL Urine Color Dark yellow (Yellow) Urine Appearance Clear (Clear) Urine pH 6.5 (5.0-8.0) Ur Specific [place] 1.025 (1.005-1.030) Urine Protein 2+ H (Negative) Urine Glucose (UA) Negative (Negative) Urine Ketones Trace H (Negative) Urine Occult Blood Trace-lysed H (Negative) Urine Nitrite Negative (Negative) Urine Bilirubin Negative (Negative) Urine Urobilinogen 0.2 (0.2-1.0) Ur Leukocyte Esterase Negative (Negative) Urine RBC 5-10 H (0-5) /hpf Urine WBC 0-5 (0-5) /hpf Ur Epithelial Cells 5-10 H (0-5) /hpf Urine Bacteria Moderate H (FEW) /hpf Urine Mucus Moderate H (FEW) /hpf 11/30/17 Range/Units 06:10 POC Glucose 116 H (70-105) mg/dL Urine Color (Yellow) Urine Appearance (Clear) Urine pH (5.0-8.0) Ur Specific [place] (1.005-1.030) Urine Protein (Negative) Urine Glucose (UA) (Negative) Urine Ketones (Negative) Urine Occult Blood (Negative) Urine Nitrite (Negative) Urine Bilirubin (Negative) Urine Urobilinogen (0.2-1.0) Ur Leukocyte Esterase (Negative) Urine RBC (0-5) /hpf Urine WBC (0-5) /hpf Ur Epithelial Cells (0-5) /hpf Urine Bacteria (FEW) /hpf Urine Mucus (FEW) /hpf Med Orders - Current: Current Medications Albuterol (Proventil Hfa) 0 gm INH Q4H PRN PRN Reason: Shortness of Breath Hydromorphone HCl (Dilaudid) 0.5 mg IVPUSH Q1H PRN PRN Reason: Pain (severe 7-10) Piperacillin Sod/Tazobactam (Sod 4.5 gm/ Sodium Chloride) 100 mls @ 25 mls/hr IV Q8H [facility] Last Admin: 11/30/17 08:35 Dose: 25 mls/hr Ketorolac Tromethamine (Toradol) 30 mg IVPUSH Q6H PRN PRN Reason: Pain Last Admin: 11/27/17 08:41 Dose: 30 mg Loperamide HCl (Imodium) 2 mg PO Q4H PRN PRN Reason: Diarrhea Losartan Potassium (Cozaar) 25 mg PO DAILY [facility] Last Admin: 11/30/17 08:32 Dose: 25 mg Ondansetron HCl (Zofran) 4 mg IVPUSH Q6H PRN PRN Reason: Nausea/Vomiting Oxycodone/Acetaminophen (Percocet 325-5 Mg) 2 tab PO Q4H PRN PRN Reason: Pain Last Admin: 11/30/17 08:32 Dose: 2 tab Potassium Chloride (Klor-Con 10) 10 meq PO BID [facility] Last Admin: 11/30/17 08:31 Dose: 10 meq Risperidone (Risperidal) 2 mg PO BEDTIME [facility] Last Admin: 11/29/17 20:29 Dose: 2 mg Saccharomyces Boulardii (Florastor) 250 mg PO DAILY [facility] Last Admin: 11/30/17 08:31 Dose: 250 mg Sodium Chloride (Saline Flush) 10 ml FLUSH ASDIRECTED PRN PRN Reason: Keep Vein Open Last Admin: 11/25/17 14:38 Dose: 10 ml Timolol Maleate (Timoptic 0.5% Ophth Soln) 0 ml EYEBOTH DAILY [facility] Last Admin: 11/30/17 08:34 Dose: 1 drop Zolpidem Tartrate (Ambien) 5 mg PO BEDTIME PRN PRN Reason: Insomnia Discontinued Medications Bupivacaine HCl/Epinephrine Bitart (Marcaine 0.5%/Epinephrine 1:200,000) Confirm Administered Dose 50 ml .ROUTE .STK-MED ONE Stop: 11/25/17 14:38 Last Admin: 11/25/17 15:42 Dose: 9 ml Diatrizoate Meglum/Diatrizoate Sod (Gastrografin 37%) 120 ml PO ONETIME ONE Stop: 11/25/17 13:32 Last Admin: 11/25/17 13:38 Dose: 90 ml Diphenhydramine HCl (Benadryl) 25 mg IVPUSH ONETIME ONE Stop: 11/25/17 14:16 Last Admin: 11/25/17 14:38 Dose: 25 mg Diphenhydramine HCl (Benadryl) 25 mg IVPUSH Q6H PRN PRN Reason: Pruritis Fentanyl (Sublimaze) 50 mcg IVPUSH Q5M PRN PRN Reason: Pain Fentanyl (Sublimaze) Confirm Administered Dose 250 mcg .ROUTE .STK-MED ONE Stop: 11/25/17 15:05 Glycopyrrolate () Confirm Administered Dose 1 mg .ROUTE .STK-MED ONE Stop: 11/25/17 16:36 Hydromorphone HCl (Dilaudid) 0.5 mg IVPUSH ONETIME ONE Stop: 11/25/17 12:21 Last Admin: 11/25/17 12:47 Dose: 0.5 mg Hydromorphone HCl (Dilaudid) 0.5 mg IVPUSH Q1H PRN PRN Reason: Pain (severe 7-10) Last Admin: 11/27/17 00:28 Dose: 0.5 mg Hydromorphone HCl (Dilaudid) 0.5 mg IVPUSH Q15M PRN PRN Reason: Pain (severe 7-10) Hydromorphone HCl (Dilaudid) Confirm Administered Dose 1 mg .ROUTE .STK-MED ONE Stop: 11/25/17 16:02 Dextrose/Sodium Chloride (Dextrose 5%-Normal Saline) 1,000 mls @ 500 mls/hr IV ASDIRECTED [facility] Last Admin: 11/25/17 11:57 Dose: 500 mls/hr Levofloxacin/Dextrose 750 mg/ (Premix) 150 mls @ 100 mls/hr IV ONETIME ONE Stop: 11/25/17 13:55 Last Admin: 11/25/17 12:53 Dose: 100 mls/hr Cefoxitin Sodium 2 gm/ Premix 50 mls @ 100 mls/hr IV ONETIME ONE Stop: 11/25/17 14:37 Last Admin: 11/25/17 14:59 Dose: Not Given Cefoxitin Sodium 1 gm/ Premix 50 mls @ 100 mls/hr IV ONETIME ONE Stop: 11/25/17 15:01 Last Admin: 11/25/17 15:00 Dose: 100 mls/hr Sodium Chloride (Normal Saline) 1,000 mls @ 999 mls/hr IV ASDIRECTED [facility] Last Admin: 11/25/17 14:47 Dose: 999 mls/hr Sodium Chloride (Normal Saline) 1,000 mls @ 125 mls/hr IV ASDIRECTED [facility] Last Admin: 11/27/17 00:26 Dose: 125 mls/hr Piperacillin Sod/Tazobactam (Sod 4.5 gm/ Sodium Chloride) 100 mls @ 200 mls/hr IV ONETIME ONE Stop: 11/25/17 17:29 Last Admin: 11/25/17 19:05 Dose: 200 mls/hr Lidocaine HCl (Xylocaine-Mpf 1%) Confirm Administered Dose 4 mls @ as directed .ROUTE .STK-MED ONE Stop: 11/25/17 15:07 Lactated Ringer's (Ringers, Lactated) Confirm Administered Dose 1,000 mls @ as directed .ROUTE .STK-MED ONE Stop: 11/25/17 16:04 Sodium Chloride (Normal Saline) 500 mls @ 999 mls/hr IV ONETIME ONE Stop: 11/26/17 20:59 Last Admin: 11/26/17 21:32 Dose: 999 mls/hr Ketorolac Tromethamine (Toradol) 30 mg IVPUSH ONETIME [facility] Last Admin: 11/25/17 11:55 Dose: 30 mg Lidocaine/Epinephrine (Xylocaine 1% With Epinephrine 1:100,000) Confirm Administered Dose 20 ml .ROUTE .STK-MED ONE Stop: 11/25/17 14:37 Last Admin: 11/25/17 15:42 Dose: 9 ml Metoclopramide HCl (Reglan) 7.5 mg IVPUSH ONETIME ONE Stop: 11/25/17 11:20 Last Admin: 11/25/17 11:53 Dose: 7.5 mg Midazolam HCl (Versed 1 Mg/Ml) Confirm Administered Dose 2 mg .ROUTE .STK-MED ONE Stop: 11/25/17 15:05 Neostigmine Methylsulfate (Neostigmine) Confirm Administered Dose 5 mg .ROUTE .STK-MED ONE Stop: 11/25/17 16:36 Non-Formulary Medication (Potassium Citrate [Potassium Citrate]) 10 meq PO BID [facility] Ondansetron HCl (Zofran) 4 mg IVPUSH ONETIME ONE Stop: 11/25/17 14:16 Last Admin: 11/25/17 14:38 Dose: 4 mg Ondansetron HCl (Zofran) 4 mg IVPUSH ONETIME PRN PRN Reason: Nausea/Vomiting Ondansetron HCl (Zofran) Confirm Administered Dose 4 mg .ROUTE .STK-MED ONE Stop: 11/25/17 15:07 Oxycodone/Acetaminophen (Percocet 325-5 Mg) 1 tab PO Q4H PRN PRN Reason: Pain Last Admin: 11/29/17 05:55 Dose: 1 tab Potassium Chloride (Potassium Chloride Solution) 20 meq PO BID [facility] Last Admin: 11/29/17 10:36 Dose: 20 meq Propofol (Diprivan 20 Ml) Confirm Administered Dose 200 mg .ROUTE .STK-MED ONE Stop: 11/25/17 15:05 Rocuronium [place] (Zemuron) Confirm Administered Dose 50 mg .ROUTE .STK-MED ONE Stop: 11/25/17 15:07 Sodium Chloride (Saline Flush) 10 ml FLUSH ASDIRECTED PRN PRN Reason: Keep Vein Open - Exam Wound/Incisions: Dressing Dry and Intact GI/Abdominal Exam: Distended (Mild to moderate) - Problem List & Annotations (1) Acute appendicitis with localized peritonitis SNOMED Code(s): 135251412 Code(s): K35.3 - ACUTE APPENDICITIS WITH LOCALIZED PERITONITIS Status: Acute Priority: High Current Visit: Yes - Problem List Review Problem List Initiated/Reviewed/Updated: Yes - My Orders Last 24 Hours: Active Orders 24 hr Category Date Time Status Blood Glucose Check, Bedside [RC] DAILY Care 11/30/17 07:00 Active CULTURE URINE [RM] Routine Lab 11/29/17 15:00 Results HYDROmorphone [Dilaudid] Med 11/30/17 12:01 Active 0.5 mg IVPUSH Q1H PRN Potassium Chloride [Klor-Con 10] Med 11/29/17 21:00 Active 10 meq PO BID Medication Orders Albuterol (Proventil Hfa) 0 gm INH Q4H PRN PRN Reason: Shortness of Breath Hydromorphone HCl (Dilaudid) 0.5 mg IVPUSH Q1H PRN PRN Reason: Pain (severe 7-10) Piperacillin Sod/Tazobactam (Sod 4.5 gm/ Sodium Chloride) 100 mls @ 25 mls/hr IV Q8H [facility] Last Admin: 11/30/17 08:35 Dose: 25 mls/hr Infusion: 11/30/17 04:42 Dose: 25 mls/hr Admin: 11/30/17 00:42 Dose: 25 mls/hr Infusion: 11/29/17 20:30 Dose: 25 mls/hr Admin: 11/29/17 16:30 Dose: 25 mls/hr Infusion: 11/29/17 12:30 Dose: 25 mls/hr Admin: 11/29/17 08:30 Dose: 25 mls/hr Infusion: 11/29/17 05:43 Dose: 25 mls/hr Admin: 11/29/17 01:43 Dose: 25 mls/hr Infusion: 11/28/17 20:14 Dose: 25 mls/hr Admin: 11/28/17 16:14 Dose: 25 mls/hr Infusion: 11/28/17 12:40 Dose: 0 mls/hr Admin: 11/28/17 08:39 Dose: 25 mls/hr Infusion: 11/28/17 04:28 Dose: 25 mls/hr Admin: 11/28/17 00:28 Dose: 25 mls/hr Infusion: 11/27/17 21:25 Dose: 25 mls/hr Admin: 11/27/17 17:25 Dose: 25 mls/hr Infusion: 11/27/17 12:42 Dose: 25 mls/hr Admin: 11/27/17 08:42 Dose: 25 mls/hr Infusion: 11/27/17 04:27 Dose: 25 mls/hr Admin: 11/27/17 00:27 Dose: 25 mls/hr Infusion: 11/26/17 20:41 Dose: 25 mls/hr Admin: 11/26/17 16:41 Dose: 25 mls/hr Infusion: 11/26/17 12:28 Dose: 25 mls/hr Admin: 11/26/17 08:28 Dose: 25 mls/hr Infusion: 11/26/17 05:02 Dose: 25 mls/hr Admin: 11/26/17 01:02 Dose: 25 mls/hr Admin: 11/25/17 20:17 Dose: Admin: 11/25/17 20:17 Dose: Admin: 11/25/17 20:17 Dose: Ketorolac Tromethamine (Toradol) 30 mg IVPUSH Q6H PRN PRN Reason: Pain Last Admin: 11/27/17 08:41 Dose: 30 mg Admin: 11/27/17 00:29 Dose: 30 mg Admin: 11/26/17 18:23 Dose: 30 mg Admin: 11/26/17 12:21 Dose: 30 mg Loperamide HCl (Imodium) 2 mg PO Q4H PRN PRN Reason: Diarrhea Losartan Potassium (Cozaar) 25 mg PO DAILY [facility] Last Admin: 11/30/17 08:32 Dose: 25 mg Admin: 11/29/17 08:28 Dose: 25 mg Admin: 11/28/17 08:37 Dose: 25 mg Ondansetron HCl (Zofran) 4 mg IVPUSH Q6H PRN PRN Reason: Nausea/Vomiting Oxycodone/Acetaminophen (Percocet 325-5 Mg) 2 tab PO Q4H PRN PRN Reason: Pain Last Admin: 11/30/17 08:32 Dose: 2 tab Admin: 11/30/17 00:51 Dose: 2 tab Admin: 11/29/17 20:27 Dose: 2 tab Admin: 11/29/17 15:39 Dose: 2 tab Admin: 11/29/17 10:36 Dose: 2 tab Potassium Chloride (Klor-Con 10) 10 meq PO BID [facility] Last Admin: 11/30/17 08:31 Dose: 10 meq Admin: 11/29/17 20:29 Dose: 10 meq Risperidone (Risperidal) 2 mg PO BEDTIME [facility] Last Admin: 11/29/17 20:29 Dose: 2 mg Admin: 11/28/17 20:30 Dose: 2 mg Saccharomyces Boulardii (Florastor) 250 mg PO DAILY [facility] Last Admin: 11/30/17 08:31 Dose: 250 mg Admin: 11/29/17 08:29 Dose: 250 mg Admin: 11/28/17 08:36 Dose: 250 mg Admin: 11/27/17 17:25 Dose: 250 mg Sodium Chloride (Saline Flush) 10 ml FLUSH ASDIRECTED PRN PRN Reason: Keep Vein Open Last Admin: 11/25/17 14:38 Dose: 10 ml Timolol Maleate (Timoptic 0.5% Ophth Soln) 0 ml EYEBOTH DAILY [facility] Last Admin: 11/30/17 08:34 Dose: 1 drop Admin: 11/29/17 08:29 Dose: 1 drop Admin: 11/28/17 08:37 Dose: 1 drop Zolpidem Tartrate (Ambien) 5 mg PO BEDTIME PRN PRN Reason: Insomnia - Assessment Assessment (Free Text/Narrative):: Stable. Patient is ambulating and motivated. - Plan Plan (Free Text/Narrative):: Continue IV antibiotics. Less white blood cell count was 18,000.
[2017-11-30] MEDS: HYDROmorphone 0.5 MG/0.5 ML SYRINGE IVPUSH PRN (16:15)
[2017-11-30] MEDS: risperiDONE 1 MG Tab PO SCH (20:09)
[2017-12-01] MEDS: Piperacillin/Tazobactam 4.5 GM in Sodium Chloride 0.9% 100 ML IV SCH ×3 (01:10→17:15)
[2017-12-01] MEDS: Losartan 25 MG Tab PO SCH (09:08)
[2017-12-01] MEDS: Acetaminophen/oxyCODONE 325-5 MG Tab PO PRN ×3 (09:09→21:59)
[2017-12-01] MEDS: Timolol Maleate 0.5% Ophth Soln 5 ML Bottle EYEBOTH SCH (09:09)
[2017-12-01] MEDS: Potassium Chloride 10 MEQ Tab.ER PO SCH ×2 (09:09→21:59)
[2017-12-01] MEDS: Saccharomyces Boulardii (Probiotic) 250 MG Cap PO SCH (09:09)
--- NOTE | 2017-12-01 09:16 | PCM.SURGPN ---
- General Info Date of Service: 12/01/17 POD#: 6 Functional Status: Reports: Pain Controlled (Still requiring analgesics for lower abdominal pain), Tolerating Diet, Ambulating, Urinating, Incentive Spirometry - Review of Systems Gastrointestinal: Reports: Abdominal Pain (Below his belly button), Diarrhea ( Stated stools are firming up), Flatus - Patient Data Vitals - Most Recent: Last Vital Signs Temp 36.4 C 12/01/17 07:35 Pulse 98 12/01/17 07:35 Resp 16 12/01/17 07:35 BP 136/82 12/01/17 09:08 Pulse Ox 92 L 12/01/17 07:35 Weight - Most Recent: 93.576 kg I&O - Last 24 Hours: Intake & Output 11/30/17 12/01/17 12/01/17 22:59 06:59 14:59 Intake Total 540 350 Output Total 800 Balance -260 350 Lab Results Last 24 Hrs: Laboratory Results - last 24 hr 11/30/17 Range/Units 16:56 POC Glucose 119 H (70-105) mg/dL Med Orders - Current: Current Medications Albuterol (Proventil Hfa) 0 gm INH Q4H PRN PRN Reason: Shortness of Breath Hydromorphone HCl (Dilaudid) 0.5 mg IVPUSH Q1H PRN PRN Reason: Pain (severe 7-10) Last Admin: 11/30/17 16:15 Dose: 0.5 mg Piperacillin Sod/Tazobactam (Sod 4.5 gm/ Sodium Chloride) 100 mls @ 25 mls/hr IV Q8H [facility] Last Admin: 12/01/17 09:13 Dose: 25 mls/hr Ketorolac Tromethamine (Toradol) 30 mg IVPUSH Q6H PRN PRN Reason: Pain Last Admin: 11/27/17 08:41 Dose: 30 mg Loperamide HCl (Imodium) 2 mg PO Q4H PRN PRN Reason: Diarrhea Losartan Potassium (Cozaar) 25 mg PO DAILY [facility] Last Admin: 12/01/17 09:08 Dose: 25 mg Ondansetron HCl (Zofran) 4 mg IVPUSH Q6H PRN PRN Reason: Nausea/Vomiting Oxycodone/Acetaminophen (Percocet 325-5 Mg) 2 tab PO Q4H PRN PRN Reason: Pain Last Admin: 12/01/17 09:09 Dose: 2 tab Potassium Chloride (Klor-Con 10) 10 meq PO BID [facility] Last Admin: 12/01/17 09:09 Dose: 10 meq Risperidone (Risperidal) 2 mg PO BEDTIME [facility] Last Admin: 11/30/17 20:09 Dose: 2 mg Saccharomyces Boulardii (Florastor) 250 mg PO DAILY [facility] Last Admin: 12/01/17 09:09 Dose: 250 mg Sodium Chloride (Saline Flush) 10 ml FLUSH ASDIRECTED PRN PRN Reason: Keep Vein Open Last Admin: 11/25/17 14:38 Dose: 10 ml Timolol Maleate (Timoptic 0.5% Ophth Soln) 0 ml EYEBOTH DAILY [facility] Last Admin: 12/01/17 09:09 Dose: 1 drop Zolpidem Tartrate (Ambien) 5 mg PO BEDTIME PRN PRN Reason: Insomnia Discontinued Medications Bupivacaine HCl/Epinephrine Bitart (Marcaine 0.5%/Epinephrine 1:200,000) Confirm Administered Dose 50 ml .ROUTE .STK-MED ONE Stop: 11/25/17 14:38 Last Admin: 11/25/17 15:42 Dose: 9 ml Diatrizoate Meglum/Diatrizoate Sod (Gastrografin 37%) 120 ml PO ONETIME ONE Stop: 11/25/17 13:32 Last Admin: 11/25/17 13:38 Dose: 90 ml Diphenhydramine HCl (Benadryl) 25 mg IVPUSH ONETIME ONE Stop: 11/25/17 14:16 Last Admin: 11/25/17 14:38 Dose: 25 mg Diphenhydramine HCl (Benadryl) 25 mg IVPUSH Q6H PRN PRN Reason: Pruritis Fentanyl (Sublimaze) 50 mcg IVPUSH Q5M PRN PRN Reason: Pain Fentanyl (Sublimaze) Confirm Administered Dose 250 mcg .ROUTE .STK-MED ONE Stop: 11/25/17 15:05 Glycopyrrolate () Confirm Administered Dose 1 mg .ROUTE .STK-MED ONE Stop: 11/25/17 16:36 Hydromorphone HCl (Dilaudid) 0.5 mg IVPUSH ONETIME ONE Stop: 11/25/17 12:21 Last Admin: 11/25/17 12:47 Dose: 0.5 mg Hydromorphone HCl (Dilaudid) 0.5 mg IVPUSH Q1H PRN PRN Reason: Pain (severe 7-10) Last Admin: 11/27/17 00:28 Dose: 0.5 mg Hydromorphone HCl (Dilaudid) 0.5 mg IVPUSH Q15M PRN PRN Reason: Pain (severe 7-10) Hydromorphone HCl (Dilaudid) Confirm Administered Dose 1 mg .ROUTE .STK-MED ONE Stop: 11/25/17 16:02 Hydromorphone HCl (Dilaudid) 0.5 mg IVPUSH Q1H PRN PRN Reason: Pain (severe 7-10) Last Admin: 11/30/17 12:06 Dose: 0.5 mg Dextrose/Sodium Chloride (Dextrose 5%-Normal Saline) 1,000 mls @ [facility] Admin: 11/25/17 11:57 Dose: 500 mls/hr Levofloxacin/Dextrose 750 mg/ (Premix) 150 mls @ 100 mls/hr IV ONETIME ONE Stop: 11/25/17 13:55 Last Admin: 11/25/17 12:53 Dose: 100 mls/hr Cefoxitin Sodium 2 gm/ Premix 50 mls @ 100 mls/hr IV ONETIME ONE Stop: 11/25/17 14:37 Last Admin: 11/25/17 14:59 Dose: Not Given Cefoxitin Sodium 1 gm/ Premix 50 mls @ 100 mls/hr IV ONETIME ONE Stop: 11/25/17 15:01 Last Admin: 11/25/17 15:00 Dose: 100 mls/hr Sodium Chloride (Normal Saline) 1,000 mls @ 999 [facility] Last Admin: 11/25/17 14:47 Dose: 999 mls/hr Sodium Chloride (Normal Saline) 1,000 mls @ 125 [facility] Last Admin: 11/27/17 00:26 Dose: 125 mls/hr Piperacillin Sod/Tazobactam (Sod 4.5 gm/ Sodium Chloride) 100 mls @ 200 mls/hr IV ONETIME ONE Stop: 11/25/17 17:29 Last Admin: 11/25/17 19:05 Dose: 200 mls/hr Lidocaine HCl (Xylocaine-Mpf 1%) Confirm Administered Dose 4 mls @ as directed .ROUTE .STK-MED ONE Stop: 11/25/17 15:07 Lactated Ringer's (Ringers, Lactated) Confirm Administered Dose 1,000 mls @ as directed .ROUTE .STK-MED ONE Stop: 11/25/17 16:04 Sodium Chloride (Normal Saline) 500 mls @ 999 mls/hr IV ONETIME ONE Stop: 11/26/17 20:59 Last Admin: 11/26/17 21:32 Dose: 999 mls/hr Ketorolac Tromethamine (Toradol) 30 mg IVPUSH ONETIME [facility] Last Admin: 11/25/17 11:55 Dose: 30 mg Lidocaine/Epinephrine (Xylocaine 1% With Epinephrine 1:100,000) Confirm Administered Dose 20 ml .ROUTE .STK-MED ONE Stop: 11/25/17 14:37 Last Admin: 11/25/17 15:42 Dose: 9 ml Metoclopramide HCl (Reglan) 7.5 mg IVPUSH ONETIME ONE Stop: 11/25/17 11:20 Last Admin: 11/25/17 11:53 Dose: 7.5 mg Midazolam HCl (Versed 1 Mg/Ml) Confirm Administered Dose 2 mg .ROUTE .STK-MED ONE Stop: 11/25/17 15:05 Neostigmine Methylsulfate (Neostigmine) Confirm Administered Dose 5 mg .ROUTE .STK-MED ONE Stop: 11/25/17 16:36 Non-Formulary Medication (Potassium Citrate [Potassium Citrate]) 10 meq PO BID [facility] Ondansetron HCl (Zofran) 4 mg IVPUSH ONETIME ONE Stop: 11/25/17 14:16 Last Admin: 11/25/17 14:38 Dose: 4 mg Ondansetron HCl (Zofran) 4 mg IVPUSH ONETIME PRN PRN Reason: Nausea/Vomiting Ondansetron HCl (Zofran) Confirm Administered Dose 4 mg .ROUTE .STK-MED ONE Stop: 11/25/17 15:07 Oxycodone/Acetaminophen (Percocet 325-5 Mg) 1 tab PO Q4H PRN PRN Reason: Pain Last Admin: 11/29/17 05:55 Dose: 1 tab Potassium Chloride (Potassium Chloride Solution) 20 meq PO BID [facility] Last Admin: 11/29/17 10:36 Dose: 20 meq Propofol (Diprivan 20 Ml) Confirm Administered Dose 200 mg .ROUTE .STK-MED ONE Stop: 11/25/17 15:05 Rocuronium [place] (Zemuron) Confirm Administered Dose 50 mg .ROUTE .STK-MED ONE Stop: 11/25/17 15:07 Sodium Chloride (Saline Flush) 10 ml FLUSH ASDIRECTED PRN PRN Reason: Keep Vein Open - Exam Wound/Incisions: Dressing Dry and Intact, No Drainage GI/Abdominal Exam: Soft, Distended (Mild to moderate) - Problem List & Annotations (1) Acute appendicitis with localized peritonitis SNOMED Code(s): 753100189 Code(s): K35.3 - ACUTE APPENDICITIS WITH LOCALIZED PERITONITIS Status: Acute Priority: High Current Visit: Yes - Problem List Review Problem List Initiated/Reviewed/Updated: Yes - My Orders Last 24 Hours: Active Orders 24 hr Category Date Time Status Abdomen wo Cont [CT] Routine Exams 12/02/17 07:00 Ordered CBC WITH AUTO DIFF [HEME] Routine Lab 12/02/17 07:00 Ordered HYDROmorphone [Dilaudid] Med 11/30/17 13:45 Active 0.5 mg IVPUSH Q1H PRN Medication Orders Albuterol (Proventil Hfa) 0 gm INH Q4H PRN PRN Reason: Shortness of Breath Hydromorphone HCl (Dilaudid) 0.5 mg IVPUSH Q1H PRN PRN Reason: Pain (severe 7-10) Last Admin: 11/30/17 16:15 Dose: 0.5 mg Piperacillin Sod/Tazobactam (Sod 4.5 gm/ Sodium Chloride) 100 mls @ 25 mls/hr IV Q8H [facility] Last Admin: 12/01/17 09:13 Dose: 25 mls/hr Infusion: 12/01/17 05:10 Dose: 25 mls/hr Admin: 12/01/17 01:10 Dose: 25 mls/hr Infusion: 11/30/17 20:17 Dose: 25 mls/hr Admin: 11/30/17 16:17 Dose: 25 mls/hr Infusion: 11/30/17 12:35 Dose: 25 mls/hr Admin: 11/30/17 08:35 Dose: 25 mls/hr Infusion: 11/30/17 04:42 Dose: 25 mls/hr Admin: 11/30/17 00:42 Dose: 25 mls/hr Infusion: 11/29/17 20:30 Dose: 25 mls/hr Admin: 11/29/17 16:30 Dose: 25 mls/hr Infusion: 11/29/17 12:30 Dose: 25 mls/hr Admin: 11/29/17 08:30 Dose: 25 mls/hr Infusion: 11/29/17 05:43 Dose: 25 mls/hr Admin: 11/29/17 01:43 Dose: 25 mls/hr Infusion: 11/28/17 20:14 Dose: 25 mls/hr Admin: 11/28/17 16:14 Dose: 25 mls/hr Infusion: 11/28/17 12:40 Dose: 0 mls/hr Admin: 11/28/17 08:39 Dose: 25 mls/hr Infusion: 11/28/17 04:28 Dose: 25 mls/hr Admin: 11/28/17 00:28 Dose: 25 mls/hr Infusion: 11/27/17 21:25 Dose: 25 mls/hr Admin: 11/27/17 17:25 Dose: 25 mls/hr Infusion: 11/27/17 12:42 Dose: 25 mls/hr Admin: 11/27/17 08:42 Dose: 25 mls/hr Infusion: 11/27/17 04:27 Dose: 25 mls/hr Admin: 11/27/17 00:27 Dose: 25 mls/hr Infusion: 11/26/17 20:41 Dose: 25 mls/hr Admin: 11/26/17 16:41 Dose: 25 mls/hr Infusion: 11/26/17 12:28 Dose: 25 mls/hr Admin: 11/26/17 08:28 Dose: 25 mls/hr Infusion: 11/26/17 05:02 Dose: 25 mls/hr Admin: 11/26/17 01:02 Dose: 25 mls/hr Admin: 11/25/17 20:17 Dose: Admin: 11/25/17 20:17 Dose: Admin: 11/25/17 20:17 Dose: Ketorolac Tromethamine (Toradol) 30 mg IVPUSH Q6H PRN PRN Reason: Pain Last Admin: 11/27/17 08:41 Dose: 30 mg Admin: 11/27/17 00:29 Dose: 30 mg Admin: 11/26/17 18:23 Dose: 30 mg Admin: 11/26/17 12:21 Dose: 30 mg Loperamide HCl (Imodium) 2 mg PO Q4H PRN PRN Reason: Diarrhea Losartan Potassium (Cozaar) 25 mg PO DAILY [facility] Last Admin: 12/01/17 09:08 Dose: 25 mg Admin: 11/30/17 08:32 Dose: 25 mg Admin: 11/29/17 08:28 Dose: 25 mg Admin: 11/28/17 08:37 Dose: 25 mg Ondansetron HCl (Zofran) 4 mg IVPUSH Q6H PRN PRN Reason: Nausea/Vomiting Oxycodone/Acetaminophen (Percocet 325-5 Mg) 2 tab PO Q4H PRN PRN Reason: Pain Last Admin: 12/01/17 09:09 Dose: 2 tab Admin: 11/30/17 23:36 Dose: 2 tab Admin: 11/30/17 14:17 Dose: 2 tab Admin: 11/30/17 08:32 Dose: 2 tab Admin: 11/30/17 00:51 Dose: 2 tab Admin: 11/29/17 20:27 Dose: 2 tab Admin: 11/29/17 15:39 Dose: 2 tab Admin: 11/29/17 10:36 Dose: 2 tab Potassium Chloride (Klor-Con 10) 10 meq PO BID [facility] Last Admin: 12/01/17 09:09 Dose: 10 meq Admin: 11/30/17 20:09 Dose: 10 meq Admin: 11/30/17 08:31 Dose: 10 meq Admin: 11/29/17 20:29 Dose: 10 meq Risperidone (Risperidal) 2 mg PO BEDTIME [facility] Last Admin: 11/30/17 20:09 Dose: 2 mg Admin: 11/29/17 20:29 Dose: 2 mg Admin: 11/28/17 20:30 Dose: 2 mg Saccharomyces Boulardii (Florastor) 250 mg PO DAILY [facility] Last Admin: 12/01/17 09:09 Dose: 250 mg Admin: 11/30/17 08:31 Dose: 250 mg Admin: 11/29/17 08:29 Dose: 250 mg Admin: 11/28/17 08:36 Dose: 250 mg Admin: 11/27/17 17:25 Dose: 250 mg Sodium Chloride (Saline Flush) 10 ml FLUSH ASDIRECTED PRN PRN Reason: Keep Vein Open Last Admin: 11/25/17 14:38 Dose: 10 ml Timolol Maleate (Timoptic 0.5% Ophth Soln) 0 ml EYEBOTH DAILY [facility] Last Admin: 12/01/17 09:09 Dose: 1 drop Admin: 11/30/17 08:34 Dose: 1 drop Admin: 11/29/17 08:29 Dose: 1 drop Admin: 11/28/17 08:37 Dose: 1 drop Zolpidem Tartrate (Ambien) 5 mg PO BEDTIME PRN PRN Reason: Insomnia - Assessment Assessment (Free Text/Narrative):: Evolving abdominal/pelvic peritonitis with evolving lower abdominal pain. Tomorrow patient will be postop day 7. I will screen him for an abdominal/ pelvic abscess with a CT scan. - Plan Plan (Free Text/Narrative):: CBC and abdominal CT.
[2017-12-01] MEDS: HYDROmorphone 0.5 MG/0.5 ML SYRINGE IVPUSH PRN (17:45)
[2017-12-01] MEDS: risperiDONE 1 MG Tab PO SCH (21:59)
[2017-12-02] MEDS: Piperacillin/Tazobactam 4.5 GM in Sodium Chloride 0.9% 100 ML IV SCH ×3 (01:38→16:48)
[2017-12-02] MEDS: Acetaminophen/oxyCODONE 325-5 MG Tab PO PRN ×5 (03:46→22:17)
--- NOTE | 2017-12-02 08:44 | PCM.SURGPN ---
- General Info Date of Service: 12/02/17 POD#: 7 Functional Status: Reports: Tolerating Diet, Ambulating, Urinating - Review of Systems Gastrointestinal: Reports: Abdominal Pain (Hypogastric) - Patient Data Vitals - Most Recent: Last Vital Signs Temp 36.8 C 12/02/17 07:47 Pulse 85 12/02/17 07:47 Resp 12 12/02/17 07:47 BP 122/73 12/02/17 07:47 Pulse Ox 92 L 12/02/17 07:47 Weight - Most Recent: 92.76 kg I&O - Last 24 Hours: Intake & Output 12/01/17 12/02/17 12/02/17 22:59 06:59 14:59 Intake Total 1020 500 Output Total 300 600 Balance 720 -100 Lab Results Last 24 Hrs: Laboratory Results - last 24 hr 12/01/17 12/02/17 12/02/17 Range/Units 06:14 06:39 06:41 WBC 15.08 H (4.23-9.07) K/mm3 RBC 4.15 L (4.63-6.08) M/mm3 Hgb 12.4 L (13.7-17.5) gm/L Hct 37.3 L (40.1-51.0) % MCV 89.9 (79.0-92.2) fl MCH 29.9 (25.7-32.2) pg MCHC 33.2 (32.2-35.5) g/dl RDW Std Deviation 44.0 H (35.1-43.9) fL Plt Count 362 H (163-337) K/mm3 MPV 8.9 L (9.4-12.3) fl Neut % (Auto) 68.2 H (34.0-67.9) % Lymph % (Auto) 15.7 L (21.8-53.1) % [place] % (Auto) 11.5 (5.3-12.2) % Eos % (Auto) 1.7 (0.8-7.0) Baso % (Auto) 0.3 (0.1-1.2) % Neut # (Auto) 10.29 H (1.78-5.38) K/mm3 Lymph # (Auto) 2.37 (1.32-3.57) K/mm3 [place] # (Auto) 1.73 H (0.30-0.82) K/mm3 Eos # (Auto) 0.25 (0.04-0.54) K/mm3 Baso # (Auto) 0.05 (0.01-0.08) K/mm3 Manual Slide Review Abnormal smear POC Glucose 135 H 136 H (70-105) mg/dL David Results Last 24 Hrs: Microbiology 11/29/17 15:00 Urine Culture - Final Urine, Clean Catch NO GROWTH AFTER 2 DAYS Med Orders - Current: Current Medications Albuterol (Proventil Hfa) 0 gm INH Q4H PRN PRN Reason: Shortness of Breath Hydromorphone HCl (Dilaudid) 0.5 mg IVPUSH Q1H PRN PRN Reason: Pain (severe 7-10) Last Admin: 12/01/17 17:45 Dose: 0.5 mg Piperacillin Sod/Tazobactam (Sod 4.5 gm/ Sodium Chloride) 100 mls @ 25 mls/hr IV Q8H [facility] Last Admin: 12/02/17 01:38 Dose: 25 mls/hr Ketorolac Tromethamine (Toradol) 30 mg IVPUSH Q6H PRN PRN Reason: Pain Last Admin: 11/27/17 08:41 Dose: 30 mg Loperamide HCl (Imodium) 2 mg PO Q4H PRN PRN Reason: Diarrhea Losartan Potassium (Cozaar) 25 mg PO DAILY [facility] Last Admin: 12/01/17 09:08 Dose: 25 mg Ondansetron HCl (Zofran) 4 mg IVPUSH Q6H PRN PRN Reason: Nausea/Vomiting Oxycodone/Acetaminophen (Percocet 325-5 Mg) 2 tab PO Q4H PRN PRN Reason: Pain Last Admin: 12/02/17 03:46 Dose: 2 tab Potassium Chloride (Klor-Con 10) 10 meq PO BID [facility] Last Admin: 12/01/17 21:59 Dose: 10 meq Risperidone (Risperidal) 2 mg PO BEDTIME [facility] Last Admin: 12/01/17 21:59 Dose: 2 mg Saccharomyces Boulardii (Florastor) 250 mg PO DAILY [facility] Last Admin: 12/01/17 09:09 Dose: 250 mg Sodium Chloride (Saline Flush) 10 ml FLUSH ASDIRECTED PRN PRN Reason: Keep Vein Open Last Admin: 11/25/17 14:38 Dose: 10 ml Timolol Maleate (Timoptic 0.5% Ophth Soln) 0 ml EYEBOTH DAILY [facility] Last Admin: 12/01/17 09:09 Dose: 1 drop Zolpidem Tartrate (Ambien) 5 mg PO BEDTIME PRN PRN Reason: Insomnia Discontinued Medications Bupivacaine HCl/Epinephrine Bitart (Marcaine 0.5%/Epinephrine 1:200,000) Confirm Administered Dose 50 ml .ROUTE .STK-MED ONE Stop: 11/25/17 14:38 Last Admin: 11/25/17 15:42 Dose: 9 ml Diatrizoate Meglum/Diatrizoate Sod (Gastrografin 37%) 120 ml PO ONETIME ONE Stop: 11/25/17 13:32 Last Admin: 11/25/17 13:38 Dose: 90 ml Diphenhydramine HCl (Benadryl) 25 mg IVPUSH ONETIME ONE Stop: 11/25/17 14:16 Last Admin: 11/25/17 14:38 Dose: 25 mg Diphenhydramine HCl (Benadryl) 25 mg IVPUSH Q6H PRN PRN Reason: Pruritis Fentanyl (Sublimaze) 50 mcg IVPUSH Q5M PRN PRN Reason: Pain Fentanyl (Sublimaze) Confirm Administered Dose 250 mcg .ROUTE .STK-MED ONE Stop: 11/25/17 15:05 Glycopyrrolate () Confirm Administered Dose 1 mg .ROUTE .STK-MED ONE Stop: 11/25/17 16:36 Hydromorphone HCl (Dilaudid) 0.5 mg IVPUSH ONETIME ONE Stop: 11/25/17 12:21 Last Admin: 11/25/17 12:47 Dose: 0.5 mg Hydromorphone HCl (Dilaudid) 0.5 mg IVPUSH Q1H PRN PRN Reason: Pain (severe 7-10) Last Admin: 11/27/17 00:28 Dose: 0.5 mg Hydromorphone HCl (Dilaudid) 0.5 mg IVPUSH Q15M PRN PRN Reason: Pain (severe 7-10) Hydromorphone HCl (Dilaudid) Confirm Administered Dose 1 mg .ROUTE .STK-MED ONE Stop: 11/25/17 16:02 Hydromorphone HCl (Dilaudid) 0.5 mg IVPUSH Q1H PRN PRN Reason: Pain (severe 7-10) Last Admin: 11/30/17 12:06 Dose: 0.5 mg Dextrose/Sodium Chloride (Dextrose 5%-Normal Saline) 1,000 mls @ [facility] Admin: 11/25/17 11:57 Dose: 500 mls/hr Levofloxacin/Dextrose 750 mg/ (Premix) 150 mls @ 100 mls/hr IV ONETIME ONE Stop: 11/25/17 13:55 Last Admin: 11/25/17 12:53 Dose: 100 mls/hr Cefoxitin Sodium 2 gm/ Premix 50 mls @ 100 mls/hr IV ONETIME ONE Stop: 11/25/17 14:37 Last Admin: 11/25/17 14:59 Dose: Not Given Cefoxitin Sodium 1 gm/ Premix 50 mls @ 100 mls/hr IV ONETIME ONE Stop: 11/25/17 15:01 Last Admin: 11/25/17 15:00 Dose: 100 mls/hr Sodium Chloride (Normal Saline) 1,000 mls @ 999 [facility] Last Admin: 11/25/17 14:47 Dose: 999 mls/hr Sodium Chloride (Normal Saline) 1,000 mls @ 125 [facility] Last Admin: 11/27/17 00:26 Dose: 125 mls/hr Piperacillin Sod/Tazobactam (Sod 4.5 gm/ Sodium Chloride) 100 mls @ 200 mls/hr IV ONETIME ONE Stop: 11/25/17 17:29 Last Admin: 11/25/17 19:05 Dose: 200 mls/hr Lidocaine HCl (Xylocaine-Mpf 1%) Confirm Administered Dose 4 mls @ as directed .ROUTE .K-MED ONE Stop: 11/25/17 15:07 Lactated Ringer's (Ringers, Lactated) Confirm Administered Dose 1,000 mls @ as directed .ROUTE .K-MED ONE Stop: 11/25/17 16:04 Sodium Chloride (Normal Saline) 500 mls @ 999 mls/hr IV ONETIME ONE Stop: 11/26/17 20:59 Last Admin: 11/26/17 21:32 Dose: 999 mls/hr Ketorolac Tromethamine (Toradol) 30 mg IVPUSH ONETIME [facility] Last Admin: 11/25/17 11:55 Dose: 30 mg Lidocaine/Epinephrine (Xylocaine 1% With Epinephrine 1:100,000) Confirm Administered Dose 20 ml .ROUTE .STK-MED ONE Stop: 11/25/17 14:37 Last Admin: 11/25/17 15:42 Dose: 9 ml Metoclopramide HCl (Reglan) 7.5 mg IVPUSH ONETIME ONE Stop: 11/25/17 11:20 Last Admin: 11/25/17 11:53 Dose: 7.5 mg Midazolam HCl (Versed 1 Mg/Ml) Confirm Administered Dose 2 mg .ROUTE .STK-MED ONE Stop: 11/25/17 15:05 Neostigmine Methylsulfate (Neostigmine) Confirm Administered Dose 5 mg .ROUTE .STK-MED ONE Stop: 11/25/17 16:36 Non-Formulary Medication (Potassium Citrate [Potassium Citrate]) 10 meq PO BID [facility] Ondansetron HCl (Zofran) 4 mg IVPUSH ONETIME ONE Stop: 11/25/17 14:16 Last Admin: 11/25/17 14:38 Dose: 4 mg Ondansetron HCl (Zofran) 4 mg IVPUSH ONETIME PRN PRN Reason: Nausea/Vomiting Ondansetron HCl (Zofran) Confirm Administered Dose 4 mg .ROUTE .STK-MED ONE Stop: 11/25/17 15:07 Oxycodone/Acetaminophen (Percocet 325-5 Mg) 1 tab PO Q4H PRN PRN Reason: Pain Last Admin: 11/29/17 05:55 Dose: 1 tab Potassium Chloride (Potassium Chloride Solution) 20 meq PO BID [facility] Last Admin: 11/29/17 10:36 Dose: 20 meq Propofol (Diprivan 20 Ml) Confirm Administered Dose 200 mg .ROUTE .STK-MED ONE Stop: 11/25/17 15:05 Rocuronium [place] (Zemuron) Confirm Administered Dose 50 mg .ROUTE .STK-MED ONE Stop: 11/25/17 15:07 Sodium Chloride (Saline Flush) 10 ml FLUSH ASDIRECTED PRN PRN Reason: Keep Vein Open - Exam Wound/Incisions: Dressing Dry and Intact General: Alert, Oriented GI/Abdominal Exam: Tender (Infraumbilical discomfort to deep palpation) - Problem List & Annotations (1) Acute appendicitis with localized peritonitis SNOMED Code(s): 801345167 Code(s): K35.3 - ACUTE APPENDICITIS WITH LOCALIZED PERITONITIS Status: Acute Priority: High Current Visit: Yes - Problem List Review Problem List Initiated/Reviewed/Updated: Yes - My Orders Last 24 Hours: Active Orders 24 hr Category Date Time Status NPO Now [Nothing per Oral Now Diet] [DIET] Diet 12/02/17 Breakfast Active Abdomen Pelvis wo Cont [CT] Routine Exams 12/02/17 07:00 Ordered Medication Orders Albuterol (Proventil Hfa) 0 gm INH Q4H PRN PRN Reason: Shortness of Breath Hydromorphone HCl (Dilaudid) 0.5 mg IVPUSH Q1H PRN PRN Reason: Pain (severe 7-10) Last Admin: 12/01/17 17:45 Dose: 0.5 mg Admin: 11/30/17 16:15 Dose: 0.5 mg Piperacillin Sod/Tazobactam (Sod 4.5 gm/ Sodium Chloride) 100 mls @ 25 mls/hr IV Q8H [facility] Last Admin: 12/02/17 01:38 Dose: 25 mls/hr Infusion: 12/01/17 21:15 Dose: 25 mls/hr Admin: 12/01/17 17:15 Dose: 25 mls/hr Infusion: 12/01/17 13:13 Dose: 25 mls/hr Admin: 12/01/17 09:13 Dose: 25 mls/hr Infusion: 12/01/17 05:10 Dose: 25 mls/hr Admin: 12/01/17 01:10 Dose: 25 mls/hr Infusion: 11/30/17 20:17 Dose: 25 mls/hr Admin: 11/30/17 16:17 Dose: 25 mls/hr Infusion: 11/30/17 12:35 Dose: 25 mls/hr Admin: 11/30/17 08:35 Dose: 25 mls/hr Infusion: 11/30/17 04:42 Dose: 25 mls/hr Admin: 11/30/17 00:42 Dose: 25 mls/hr Infusion: 11/29/17 20:30 Dose: 25 mls/hr Admin: 11/29/17 16:30 Dose: 25 mls/hr Infusion: 11/29/17 12:30 Dose: 25 mls/hr Admin: 11/29/17 08:30 Dose: 25 mls/hr Infusion: 11/29/17 05:43 Dose: 25 mls/hr Admin: 11/29/17 01:43 Dose: 25 mls/hr Infusion: 11/28/17 20:14 Dose: 25 mls/hr Admin: 11/28/17 16:14 Dose: 25 mls/hr Infusion: 11/28/17 12:40 Dose: 0 mls/hr Admin: 11/28/17 08:39 Dose: 25 mls/hr Infusion: 11/28/17 04:28 Dose: 25 mls/hr Admin: 11/28/17 00:28 Dose: 25 mls/hr Infusion: 11/27/17 21:25 Dose: 25 mls/hr Admin: 11/27/17 17:25 Dose: 25 mls/hr Infusion: 11/27/17 12:42 Dose: 25 mls/hr Admin: 11/27/17 08:42 Dose: 25 mls/hr Infusion: 11/27/17 04:27 Dose: 25 mls/hr Admin: 11/27/17 00:27 Dose: 25 mls/hr Infusion: 11/26/17 20:41 Dose: 25 mls/hr Admin: 11/26/17 16:41 Dose: 25 mls/hr Infusion: 11/26/17 12:28 Dose: 25 mls/hr Admin: 11/26/17 08:28 Dose: 25 mls/hr Infusion: 11/26/17 05:02 Dose: 25 mls/hr Admin: 11/26/17 01:02 Dose: 25 mls/hr Admin: 11/25/17 20:17 Dose: Admin: 11/25/17 20:17 Dose: Admin: 11/25/17 20:17 Dose: Ketorolac Tromethamine (Toradol) 30 mg IVPUSH Q6H PRN PRN Reason: Pain Last Admin: 11/27/17 08:41 Dose: 30 mg Admin: 11/27/17 00:29 Dose: 30 mg Admin: 11/26/17 18:23 Dose: 30 mg Admin: 11/26/17 12:21 Dose: 30 mg Loperamide HCl (Imodium) 2 mg PO Q4H PRN PRN Reason: Diarrhea Losartan Potassium (Cozaar) 25 mg PO DAILY [facility] Last Admin: 12/01/17 09:08 Dose: 25 mg Admin: 11/30/17 08:32 Dose: 25 mg Admin: 11/29/17 08:28 Dose: 25 mg Admin: 11/28/17 08:37 Dose: 25 mg Ondansetron HCl (Zofran) 4 mg IVPUSH Q6H PRN PRN Reason: Nausea/Vomiting Oxycodone/Acetaminophen (Percocet 325-5 Mg) 2 tab PO Q4H PRN PRN Reason: Pain Last Admin: 12/02/17 03:46 Dose: 2 tab Admin: 12/01/17 21:59 Dose: 2 tab Admin: 12/01/17 14:27 Dose: 2 tab Admin: 12/01/17 09:09 Dose: 2 tab Admin: 11/30/17 23:36 Dose: 2 tab Admin: 11/30/17 14:17 Dose: 2 tab Admin: 11/30/17 08:32 Dose: 2 tab Admin: 11/30/17 00:51 Dose: 2 tab Admin: 11/29/17 20:27 Dose: 2 tab Admin: 11/29/17 15:39 Dose: 2 tab Admin: 11/29/17 10:36 Dose: 2 tab Potassium Chloride (Klor-Con 10) 10 meq PO BID [facility] Last Admin: 12/01/17 21:59 Dose: 10 meq Admin: 12/01/17 09:09 Dose: 10 meq Admin: 11/30/17 20:09 Dose: 10 meq Admin: 11/30/17 08:31 Dose: 10 meq Admin: 11/29/17 20:29 Dose: 10 meq Risperidone (Risperidal) 2 mg PO BEDTIME [facility] Last Admin: 12/01/17 21:59 Dose: 2 mg Admin: 11/30/17 20:09 Dose: 2 mg Admin: 11/29/17 20:29 Dose: 2 mg Admin: 11/28/17 20:30 Dose: 2 mg Saccharomyces Boulardii (Florastor) 250 mg PO DAILY [facility] Last Admin: 12/01/17 09:09 Dose: 250 mg Admin: 11/30/17 08:31 Dose: 250 mg Admin: 11/29/17 08:29 Dose: 250 mg Admin: 11/28/17 08:36 Dose: 250 mg Admin: 11/27/17 17:25 Dose: 250 mg Sodium Chloride (Saline Flush) 10 ml FLUSH ASDIRECTED PRN PRN Reason: Keep Vein Open Last Admin: 11/25/17 14:38 Dose: 10 ml Timolol Maleate (Timoptic 0.5% Ophth Soln) 0 ml EYEBOTH DAILY [facility] Last Admin: 12/01/17 09:09 Dose: 1 drop Admin: 11/30/17 08:34 Dose: 1 drop Admin: 11/29/17 08:29 Dose: 1 drop Admin: 11/28/17 08:37 Dose: 1 drop Zolpidem Tartrate (Ambien) 5 mg PO BEDTIME PRN PRN Reason: Insomnia - Assessment Assessment (Free Text/Narrative):: Still has moderate lower abdominal discomfort. I suspect this is secondary to the evolving peritonitis currently being managed with IV antibiotics. He remains afebrile. White blood cell count is now 15,000 down from 18,000. His urinalysis is negative. His CT scan is pending for later this morning. - Plan Plan (Free Text/Narrative):: Follow up with his CAT scan. Continuing IV antibiotics.
--- NOTE | 2017-12-02 09:06 | CT ---
CT abdomen and pelvis Technique: Multiple axial sections were obtained from above the dome of the diaphragm inferiorly through the pubic symphysis. Intravenous and oral contrast not utilized. Lack of oral contrast diminishes evaluation for small abscesses. Comparison: Previous CT abdomen and pelvis study of 11/25/17. Findings: Surgical material is seen within the right lower abdomen compatible with prior appendectomy. Diffuse inflammatory change is noted within the right lower abdomen. No definite focal fluid collections are seen to indicate discrete abscess at this time. The amount of inflammatory change has increased from previous study. Increased atelectasis noted within both lung bases from previous exam. Liver shows no focal abnormality. Spleen appears within normal limits. Adrenal glands show no nodule. Kidneys show multiple nonobstructing calculi which are stable. Pancreas is within normal limits. Previous cholecystectomy is noted. Aorta shows no aneurysmal dilatation. No retroperitoneal adenopathy is seen. No pelvic mass or adenopathy is seen. Mild scattered colonic diverticuli are seen. Bone window settings were reviewed which appears within normal limits for the patient's age. Impression: 1. Increased inflammatory change within the right lower abdomen from prior CT exam. Previous appendectomy is noted. No focal fluid collections are definitely identified to indicate abscess. 2. Increased atelectasis within both lung bases. 3. Other incidental findings as noted above which are stable. Diagnostic code #3
[2017-12-02] MEDS: Losartan 25 MG Tab PO SCH (09:27)
[2017-12-02] MEDS: Potassium Chloride 10 MEQ Tab.ER PO SCH ×2 (09:27→20:54)
[2017-12-02] MEDS: Saccharomyces Boulardii (Probiotic) 250 MG Cap PO SCH (09:27)
[2017-12-02] MEDS: Timolol Maleate 0.5% Ophth Soln 5 ML Bottle EYEBOTH SCH (09:28)
[2017-12-02] MEDS: risperiDONE 1 MG Tab PO SCH (20:54)
[2017-12-03] MEDS: Piperacillin/Tazobactam 4.5 GM in Sodium Chloride 0.9% 100 ML IV SCH ×3 (01:33→17:05)
[2017-12-03] MEDS ORDERED: Potassium Chloride 20 MEQ Tab.ER PO ONE (09:35)
--- NOTE | 2017-12-03 09:39 | PCM.SURGPN ---
- General Info Date of Service: 12/03/17 POD#: 8 Functional Status: Reports: Pain Controlled (States his pain is 7/10 now. But it can be managed with Percocets.), Tolerating Diet, Ambulating, Urinating - Patient Data Vitals - Most Recent: Last Vital Signs Temp 36.6 C 12/03/17 08:00 Pulse 101 H 12/03/17 08:00 Resp 18 12/03/17 08:00 BP 134/82 12/03/17 08:00 Pulse Ox 95 12/03/17 08:00 Weight - Most Recent: 136.645 kg I&O - Last 24 Hours: Intake & Output 12/02/17 12/03/17 12/03/17 22:59 06:59 14:59 Intake Total 1180 100 Output Total 300 Balance 1180 -200 Med Orders - Current: Current Medications Albuterol (Proventil Hfa) 0 gm INH Q4H PRN PRN Reason: Shortness of Breath Hydromorphone HCl (Dilaudid) 0.5 mg IVPUSH Q1H PRN PRN Reason: Pain (severe 7-10) Last Admin: 12/01/17 17:45 Dose: 0.5 mg Piperacillin Sod/Tazobactam (Sod 4.5 gm/ Sodium Chloride) 100 mls @ 25 mls/hr IV Q8H [facility] Last Admin: 12/03/17 01:33 Dose: 25 mls/hr Ketorolac Tromethamine (Toradol) 30 mg IVPUSH Q6H PRN PRN Reason: Pain Last Admin: 11/27/17 08:41 Dose: 30 mg Loperamide HCl (Imodium) 2 mg PO Q4H PRN PRN Reason: Diarrhea Losartan Potassium (Cozaar) 25 mg PO DAILY [facility] Last Admin: 12/02/17 09:27 Dose: 25 mg Ondansetron HCl (Zofran) 4 mg IVPUSH Q6H PRN PRN Reason: Nausea/Vomiting Oxycodone/Acetaminophen (Percocet 325-5 Mg) 2 tab PO Q4H PRN PRN Reason: Pain Last Admin: 12/02/17 22:17 Dose: 2 tab Potassium Chloride (Klor-Con 10) 10 meq PO BID [facility] Last Admin: 12/02/17 20:54 Dose: 10 meq Risperidone (Risperidal) 2 mg PO BEDTIME [facility] Last Admin: 12/02/17 20:54 Dose: 2 mg Saccharomyces Boulardii (Florastor) 250 mg PO DAILY [facility] Last Admin: 12/02/17 09:27 Dose: 250 mg Sodium Chloride (Saline Flush) 10 ml FLUSH ASDIRECTED PRN PRN Reason: Keep Vein Open Last Admin: 11/25/17 14:38 Dose: 10 ml Timolol Maleate (Timoptic 0.5% Ophth Soln) 0 ml EYEBOTH DAILY [facility] Last Admin: 12/02/17 09:28 Dose: 1 drop Zolpidem Tartrate (Ambien) 5 mg PO BEDTIME PRN PRN Reason: Insomnia Discontinued Medications Bupivacaine HCl/Epinephrine Bitart (Marcaine 0.5%/Epinephrine 1:200,000) Confirm Administered Dose 50 ml .ROUTE .STK-MED ONE Stop: 11/25/17 14:38 Last Admin: 11/25/17 15:42 Dose: 9 ml Diatrizoate Meglum/Diatrizoate Sod (Gastrografin 37%) 120 ml PO ONETIME ONE Stop: 11/25/17 13:32 Last Admin: 11/25/17 13:38 Dose: 90 ml Diphenhydramine HCl (Benadryl) 25 mg IVPUSH ONETIME ONE Stop: 11/25/17 14:16 Last Admin: 11/25/17 14:38 Dose: 25 mg Diphenhydramine HCl (Benadryl) 25 mg IVPUSH Q6H PRN PRN Reason: Pruritis Fentanyl (Sublimaze) 50 mcg IVPUSH Q5M PRN PRN Reason: Pain Fentanyl (Sublimaze) Confirm Administered Dose 250 mcg .ROUTE .STK-MED ONE Stop: 11/25/17 15:05 Glycopyrrolate () Confirm Administered Dose 1 mg .ROUTE .STK-MED ONE Stop: 11/25/17 16:36 Hydromorphone HCl (Dilaudid) 0.5 mg IVPUSH ONETIME ONE Stop: 11/25/17 12:21 Last Admin: 11/25/17 12:47 Dose: 0.5 mg Hydromorphone HCl (Dilaudid) 0.5 mg IVPUSH Q1H PRN PRN Reason: Pain (severe 7-10) Last Admin: 11/27/17 00:28 Dose: 0.5 mg Hydromorphone HCl (Dilaudid) 0.5 mg IVPUSH Q15M PRN PRN Reason: Pain (severe 7-10) Hydromorphone HCl (Dilaudid) Confirm Administered Dose 1 mg .ROUTE .STK-MED ONE Stop: 11/25/17 16:02 Hydromorphone HCl (Dilaudid) 0.5 mg IVPUSH Q1H PRN PRN Reason: Pain (severe 7-10) Last Admin: 11/30/17 12:06 Dose: 0.5 mg Dextrose/Sodium Chloride (Dextrose 5%-Normal Saline) 1,000 mls @ 500 mls[facility] Last Admin: 11/25/17 11:57 Dose: 500 mls/hr Levofloxacin/Dextrose 750 mg/ (Premix) 150 mls @ 100 mls/hr IV ONETIME ONE Stop: 11/25/17 13:55 Last Admin: 11/25/17 12:53 Dose: 100 mls/hr Cefoxitin Sodium 2 gm/ Premix 50 mls @ 100 mls/hr IV ONETIME ONE Stop: 11/25/17 14:37 Last Admin: 11/25/17 14:59 Dose: Not Given Cefoxitin Sodium 1 gm/ Premix 50 mls @ 100 mls/hr IV ONETIME ONE Stop: 11/25/17 15:01 Last Admin: 11/25/17 15:00 Dose: 100 mls/hr Sodium Chloride (Normal Saline) 1,000 mls @ 999 mls[facility] Last Admin: 11/25/17 14:47 Dose: 999 mls/hr Sodium Chloride (Normal Saline) 1,000 mls @ 125 mls[facility]hr [facility] Last Admin: 11/27/17 00:26 Dose: 125 mls/hr Piperacillin Sod/Tazobactam (Sod 4.5 gm/ Sodium Chloride) 100 mls @ 200 mls/hr IV ONETIME ONE Stop: 11/25/17 17:29 Last Admin: 11/25/17 19:05 Dose: 200 mls/hr Lidocaine HCl (Xylocaine-Mpf 1%) Confirm Administered Dose 4 mls @ as directed .ROUTE .STK-MED ONE Stop: 11/25/17 15:07 Lactated Ringer's (Ringers, Lactated) Confirm Administered Dose 1,000 mls @ as directed .ROUTE .STK-MED ONE Stop: 11/25/17 16:04 Sodium Chloride (Normal Saline) 500 mls @ 999 mls/hr IV ONETIME ONE Stop: 11/26/17 20:59 Last Admin: 11/26/17 21:32 Dose: 999 mls/hr Ketorolac Tromethamine (Toradol) 30 mg IVPUSH ONETIME [facility] Last Admin: 11/25/17 11:55 Dose: 30 mg Lidocaine/Epinephrine (Xylocaine 1% With Epinephrine 1:100,000) Confirm Administered Dose 20 ml .ROUTE .STK-MED ONE Stop: 11/25/17 14:37 Last Admin: 11/25/17 15:42 Dose: 9 ml Metoclopramide HCl (Reglan) 7.5 mg IVPUSH ONETIME ONE Stop: 11/25/17 11:20 Last Admin: 11/25/17 11:53 Dose: 7.5 mg Midazolam HCl (Versed 1 Mg/Ml) Confirm Administered Dose 2 mg .ROUTE .STK-MED ONE Stop: 11/25/17 15:05 Neostigmine Methylsulfate (Neostigmine) Confirm Administered Dose 5 mg .ROUTE .STK-MED ONE Stop: 11/25/17 16:36 Non-Formulary Medication (Potassium Citrate [Potassium Citrate]) 10 meq PO BID [facility] Ondansetron HCl (Zofran) 4 mg IVPUSH ONETIME ONE Stop: 11/25/17 14:16 Last Admin: 11/25/17 14:38 Dose: 4 mg Ondansetron HCl (Zofran) 4 mg IVPUSH ONETIME PRN PRN Reason: Nausea/Vomiting Ondansetron HCl (Zofran) Confirm Administered Dose 4 mg .ROUTE .STK-MED ONE Stop: 11/25/17 15:07 Oxycodone/Acetaminophen (Percocet 325-5 Mg) 1 tab PO Q4H PRN PRN Reason: Pain Last Admin: 11/29/17 05:55 Dose: 1 tab Potassium Chloride (Potassium Chloride Solution) 20 meq PO BID [facility] Last Admin: 11/29/17 10:36 Dose: 20 meq Propofol (Diprivan 20 Ml) Confirm Administered Dose 200 mg .ROUTE .STK-MED ONE Stop: 11/25/17 15:05 [facility] (Zemuron) Confirm Administered Dose 50 mg .ROUTE .STK-MED ONE Stop: 11/25/17 15:07 Sodium Chloride (Saline Flush) 10 ml FLUSH ASDIRECTED PRN PRN Reason: Keep Vein Open - Exam Wound/Incisions: Healing Well GI/Abdominal Exam: Other (Mild tenderness in the right lower quadrant) - Problem List & Annotations (1) Acute appendicitis with localized peritonitis SNOMED Code(s): 977236822 Code(s): K35.3 - ACUTE APPENDICITIS WITH LOCALIZED PERITONITIS Status: Acute Priority: High Current Visit: Yes - Problem List Review Problem List Initiated/Reviewed/Updated: Yes - My Orders Last 24 Hours: Active Orders 24 hr Category Date Time Status Communication Order [RC] ASDIRECTED Care 12/02/17 14:22 Active Regular Diet [DIET] Diet 12/02/17 Lunch Active Potassium Chloride [Klor-Con M20] Med 12/03/17 09:35 Once 40 meq PO ONETIME ONE Medication Orders Albuterol (Proventil Hfa) 0 gm INH Q4H PRN PRN Reason: Shortness of Breath Hydromorphone HCl (Dilaudid) 0.5 mg IVPUSH Q1H PRN PRN Reason: Pain (severe 7-10) Last Admin: 12/01/17 17:45 Dose: 0.5 mg Admin: 11/30/17 16:15 Dose: 0.5 mg Piperacillin Sod/Tazobactam (Sod 4.5 gm/ Sodium Chloride) 100 mls @ 25 mls/hr IV Q8H [facility] Last Admin: 12/03/17 01:33 Dose: 25 mls/hr Infusion: 12/02/17 20:48 Dose: 25 mls/hr Admin: 12/02/17 16:48 Dose: 25 mls/hr Infusion: 12/02/17 13:29 Dose: 25 mls/hr Admin: 12/02/17 09:29 Dose: 25 mls/hr Infusion: 12/02/17 05:38 Dose: 25 mls/hr Admin: 12/02/17 01:38 Dose: 25 mls/hr Infusion: 12/01/17 21:15 Dose: 25 mls/hr Admin: 12/01/17 17:15 Dose: 25 mls/hr Infusion: 12/01/17 13:13 Dose: 25 mls/hr Admin: 12/01/17 09:13 Dose: 25 mls/hr Infusion: 12/01/17 05:10 Dose: 25 mls/hr Admin: 12/01/17 01:10 Dose: 25 mls/hr Infusion: 11/30/17 20:17 Dose: 25 mls/hr Admin: 11/30/17 16:17 Dose: 25 mls/hr Infusion: 11/30/17 12:35 Dose: 25 mls/hr Admin: 11/30/17 08:35 Dose: 25 mls/hr Infusion: 11/30/17 04:42 Dose: 25 mls/hr Admin: 11/30/17 00:42 Dose: 25 mls/hr Infusion: 11/29/17 20:30 Dose: 25 mls/hr Admin: 11/29/17 16:30 Dose: 25 mls/hr Infusion: 11/29/17 12:30 Dose: 25 mls/hr Admin: 11/29/17 08:30 Dose: 25 mls/hr Infusion: 11/29/17 05:43 Dose: 25 mls/hr Admin: 11/29/17 01:43 Dose: 25 mls/hr Infusion: 11/28/17 20:14 Dose: 25 mls/hr Admin: 11/28/17 16:14 Dose: 25 mls/hr Infusion: 11/28/17 12:40 Dose: 0 mls/hr Admin: 11/28/17 08:39 Dose: 25 mls/hr Infusion: 11/28/17 04:28 Dose: 25 mls/hr Admin: 11/28/17 00:28 Dose: 25 mls/hr Infusion: 11/27/17 21:25 Dose: 25 mls/hr Admin: 11/27/17 17:25 Dose: 25 mls/hr Infusion: 11/27/17 12:42 Dose: 25 mls/hr Admin: 11/27/17 08:42 Dose: 25 mls/hr Infusion: 11/27/17 04:27 Dose: 25 mls/hr Admin: 11/27/17 00:27 Dose: 25 mls/hr Infusion: 11/26/17 20:41 Dose: 25 mls/hr Admin: 11/26/17 16:41 Dose: 25 mls/hr Infusion: 11/26/17 12:28 Dose: 25 mls/hr Admin: 11/26/17 08:28 Dose: 25 mls/hr Infusion: 11/26/17 05:02 Dose: 25 mls/hr Admin: 11/26/17 01:02 Dose: 25 mls/hr Admin: 11/25/17 20:17 Dose: Admin: 11/25/17 20:17 Dose: Admin: 11/25/17 20:17 Dose: Ketorolac Tromethamine (Toradol) 30 mg IVPUSH Q6H PRN PRN Reason: Pain Last Admin: 11/27/17 08:41 Dose: 30 mg Admin: 11/27/17 00:29 Dose: 30 mg Admin: 11/26/17 18:23 Dose: 30 mg Admin: 11/26/17 12:21 Dose: 30 mg Loperamide HCl (Imodium) 2 mg PO Q4H PRN PRN Reason: Diarrhea Losartan Potassium (Cozaar) 25 mg PO DAILY [facility] Last Admin: 12/02/17 09:27 Dose: 25 mg Admin: 12/01/17 09:08 Dose: 25 mg Admin: 11/30/17 08:32 Dose: 25 mg Admin: 11/29/17 08:28 Dose: 25 mg Admin: 11/28/17 08:37 Dose: 25 mg Ondansetron HCl (Zofran) 4 mg IVPUSH Q6H PRN PRN Reason: Nausea/Vomiting Oxycodone/Acetaminophen (Percocet 325-5 Mg) 2 tab PO Q4H PRN PRN Reason: Pain Last Admin: 12/02/17 22:17 Dose: 2 tab Admin: 12/02/17 17:50 Dose: 2 tab Admin: 12/02/17 13:49 Dose: 2 tab Admin: 12/02/17 09:27 Dose: 2 tab Admin: 12/02/17 03:46 Dose: 2 tab Admin: 12/01/17 21:59 Dose: 2 tab Admin: 12/01/17 14:27 Dose: 2 tab Admin: 12/01/17 09:09 Dose: 2 tab Admin: 11/30/17 23:36 Dose: 2 tab Admin: 11/30/17 14:17 Dose: 2 tab Admin: 11/30/17 08:32 Dose: 2 tab Admin: 11/30/17 00:51 Dose: 2 tab Admin: 11/29/17 20:27 Dose: 2 tab Admin: 11/29/17 15:39 Dose: 2 tab Admin: 11/29/17 10:36 Dose: 2 tab Potassium Chloride (Klor-Con 10) 10 meq PO BID [facility] Last Admin: 12/02/17 20:54 Dose: 10 meq Admin: 12/02/17 09:27 Dose: 10 meq Admin: 12/01/17 21:59 Dose: 10 meq Admin: 12/01/17 09:09 Dose: 10 meq Admin: 11/30/17 20:09 Dose: 10 meq Admin: 11/30/17 08:31 Dose: 10 meq Admin: 11/29/17 20:29 Dose: 10 meq Risperidone (Risperidal) 2 mg PO BEDTIME [facility] Last Admin: 12/02/17 20:54 Dose: 2 mg Admin: 12/01/17 21:59 Dose: 2 mg Admin: 11/30/17 20:09 Dose: 2 mg Admin: 11/29/17 20:29 Dose: 2 mg Admin: 11/28/17 20:30 Dose: 2 mg Saccharomyces Boulardii (Florastor) 250 mg PO DAILY [facility] Last Admin: 12/02/17 09:27 Dose: 250 mg Admin: 12/01/17 09:09 Dose: 250 mg Admin: 11/30/17 08:31 Dose: 250 mg Admin: 11/29/17 08:29 Dose: 250 mg Admin: 11/28/17 08:36 Dose: 250 mg Admin: 11/27/17 17:25 Dose: 250 mg Sodium Chloride (Saline Flush) 10 ml FLUSH ASDIRECTED PRN PRN Reason: Keep Vein Open Last Admin: 11/25/17 14:38 Dose: 10 ml Timolol Maleate (Timoptic 0.5% Ophth Soln) 0 ml EYEBOTH DAILY [facility] Last Admin: 12/02/17 09:28 Dose: 1 drop Admin: 12/01/17 09:09 Dose: 1 drop Admin: 11/30/17 08:34 Dose: 1 drop Admin: 11/29/17 08:29 Dose: 1 drop Admin: 11/28/17 08:37 Dose: 1 drop Zolpidem Tartrate (Ambien) 5 mg PO BEDTIME PRN PRN Reason: Insomnia - Assessment Assessment (Free Text/Narrative):: imp: Abdominal CT scan shows a phlegmon or inflammatory changes within the right lower quadrant. There is no mature peel suggesting an abscess and therefore I will continue IV antibiotic management. I also offered the patient outpatient IV antibiotic management. He has very poor peripheral venous access and didn't want to experience daily venipunctures. - Plan Plan (Free Text/Narrative):: IV antibiotics until or Sunday. Replace potassium.
[2017-12-03] MEDS: HYDROmorphone 0.5 MG/0.5 ML SYRINGE IVPUSH PRN ×3 (09:51→17:19)
[2017-12-03] MEDS: Potassium Chloride 10 MEQ Tab.ER PO SCH ×2 (09:53→21:33)
[2017-12-03] MEDS: Saccharomyces Boulardii (Probiotic) 250 MG Cap PO SCH (09:53)
[2017-12-03] MEDS: Losartan 25 MG Tab PO SCH (09:53)
[2017-12-03] MEDS: Timolol Maleate 0.5% Ophth Soln 5 ML Bottle EYEBOTH SCH (09:55)
[2017-12-03] MEDS: Acetaminophen/oxyCODONE 325-5 MG Tab PO PRN ×3 (10:56→19:30)
[2017-12-03] MEDS: risperiDONE 1 MG Tab PO SCH (21:33)
[2017-12-04] MEDS: Piperacillin/Tazobactam 4.5 GM in Sodium Chloride 0.9% 100 ML IV SCH ×3 (00:49→16:35)
[2017-12-04] MEDS: Acetaminophen/oxyCODONE 325-5 MG Tab PO PRN ×4 (00:52→20:27)
--- NOTE | 2017-12-04 07:26 | PCM.SURGPN ---
- General Info Functional Status: Reports: Pain Controlled, Tolerating Diet, Ambulating, Urinating - Patient Data Vitals - Most Recent: Last Vital Signs Temp 36.4 C 12/04/17 04:52 Pulse 87 12/04/17 04:52 Resp 18 12/04/17 04:52 BP 100/48 L 12/04/17 04:52 Pulse Ox 96 12/04/17 04:52 Weight - Most Recent: 90.582 kg I&O - Last 24 Hours: Intake & Output 12/03/17 12/04/17 12/04/17 22:59 06:59 14:59 Intake Total 340 300 Output Total 300 200 350 Balance 40 100 -350 Lab Results Last 24 Hrs: Laboratory Results - last 24 hr 12/03/17 12/04/17 Range/Units 10:11 06:58 POC Glucose 145 H 116 H (70-105) mg/dL Med Orders - Current: Current Medications Albuterol (Proventil Hfa) 0 gm INH Q4H PRN PRN Reason: Shortness of Breath Hydromorphone HCl (Dilaudid) 0.5 mg IVPUSH Q1H PRN PRN Reason: Pain (severe 7-10) Last Admin: 12/03/17 17:19 Dose: 0.5 mg Piperacillin Sod/Tazobactam (Sod 4.5 gm/ Sodium Chloride) 100 mls @ 25 mls/hr IV Q8H [facility] Last Admin: 12/04/17 00:49 Dose: 25 mls/hr Ketorolac Tromethamine (Toradol) 30 mg IVPUSH Q6H PRN PRN Reason: Pain Last Admin: 11/27/17 08:41 Dose: 30 mg Loperamide HCl (Imodium) 2 mg PO Q4H PRN PRN Reason: Diarrhea Losartan Potassium (Cozaar) 25 mg PO DAILY [facility] Last Admin: 12/03/17 09:53 Dose: 25 mg Ondansetron HCl (Zofran) 4 mg IVPUSH Q6H PRN PRN Reason: Nausea/Vomiting Oxycodone/Acetaminophen (Percocet 325-5 Mg) 2 tab PO Q4H PRN PRN Reason: Pain Last Admin: 12/04/17 07:02 Dose: 2 tab Potassium Chloride (Klor-Con 10) 10 meq PO BID [facility] Last Admin: 12/03/17 21:33 Dose: 10 meq Risperidone (Risperidal) 2 mg PO BEDTIME [facility] Last Admin: 12/03/17 21:33 Dose: 2 mg Saccharomyces Boulardii (Florastor) 250 mg PO DAILY [facility] Last Admin: 12/03/17 09:53 Dose: 250 mg Sodium Chloride (Saline Flush) 10 ml FLUSH ASDIRECTED PRN PRN Reason: Keep Vein Open Last Admin: 11/25/17 14:38 Dose: 10 ml Timolol Maleate (Timoptic 0.5% Ophth Soln) 0 ml EYEBOTH DAILY [facility] Last Admin: 12/03/17 09:55 Dose: 1 drop Zolpidem Tartrate (Ambien) 5 mg PO BEDTIME PRN PRN Reason: Insomnia Discontinued Medications Bupivacaine HCl/Epinephrine Bitart (Marcaine 0.5%/Epinephrine 1:200,000) Confirm Administered Dose 50 ml .ROUTE .STK-MED ONE Stop: 11/25/17 14:38 Last Admin: 11/25/17 15:42 Dose: 9 ml Diatrizoate Meglum/Diatrizoate Sod (Gastrografin 37%) 120 ml PO ONETIME ONE Stop: 11/25/17 13:32 Last Admin: 11/25/17 13:38 Dose: 90 ml Diphenhydramine HCl (Benadryl) 25 mg IVPUSH ONETIME ONE Stop: 11/25/17 14:16 Last Admin: 11/25/17 14:38 Dose: 25 mg Diphenhydramine HCl (Benadryl) 25 mg IVPUSH Q6H PRN PRN Reason: Pruritis Fentanyl (Sublimaze) 50 mcg IVPUSH Q5M PRN PRN Reason: Pain Fentanyl (Sublimaze) Confirm Administered Dose 250 mcg .ROUTE .STK-MED ONE Stop: 11/25/17 15:05 Glycopyrrolate () Confirm Administered Dose 1 mg .ROUTE .STK-MED ONE Stop: 11/25/17 16:36 Hydromorphone HCl (Dilaudid) 0.5 mg IVPUSH ONETIME ONE Stop: 11/25/17 12:21 Last Admin: 11/25/17 12:47 Dose: 0.5 mg Hydromorphone HCl (Dilaudid) 0.5 mg IVPUSH Q1H PRN PRN Reason: Pain (severe 7-10) Last Admin: 11/27/17 00:28 Dose: 0.5 mg Hydromorphone HCl (Dilaudid) 0.5 mg IVPUSH Q15M PRN PRN Reason: Pain (severe 7-10) Hydromorphone HCl (Dilaudid) Confirm Administered Dose 1 mg .ROUTE .STK-MED ONE Stop: 11/25/17 16:02 Hydromorphone HCl (Dilaudid) 0.5 mg IVPUSH Q1H PRN PRN Reason: Pain (severe 7-10) Last Admin: 11/30/17 12:06 Dose: 0.5 mg Dextrose/Sodium Chloride (Dextrose 5%-Normal Saline) 1,000 mls @ 500 mls[facility] Last Admin: 11/25/17 11:57 Dose: 500 mls/hr Levofloxacin/Dextrose 750 mg/ (Premix) 150 mls @ 100 mls/hr IV ONETIME ONE Stop: 11/25/17 13:55 Last Admin: 11/25/17 12:53 Dose: 100 mls/hr Cefoxitin Sodium 2 gm/ Premix 50 mls @ 100 mls/hr IV ONETIME ONE Stop: 11/25/17 14:37 Last Admin: 11/25/17 14:59 Dose: Not Given Cefoxitin Sodium 1 gm/ Premix 50 mls @ 100 mls/hr IV ONETIME ONE Stop: 11/25/17 15:01 Last Admin: 11/25/17 15:00 Dose: 100 mls/hr Sodium Chloride (Normal Saline) 1,000 mls @ 999 [facility]ls[facility] Last Admin: 11/25/17 14:47 Dose: 999 mls/hr Sodium Chloride (Normal Saline) 1,000 mls @ 125 mls[facility]hr [facility] Last Admin: 11/27/17 00:26 Dose: 125 mls/hr Piperacillin Sod/Tazobactam (Sod 4.5 gm/ Sodium Chloride) 100 mls @ 200 mls/hr IV ONETIME ONE Stop: 11/25/17 17:29 Last Admin: 11/25/17 19:05 Dose: 200 mls/hr Lidocaine HCl (Xylocaine-Mpf 1%) Confirm Administered Dose 4 mls @ as directed .ROUTE .STK-MED ONE Stop: 11/25/17 15:07 Lactated Ringer's (Ringers, Lactated) Confirm Administered Dose 1,000 mls @ as directed .ROUTE .STK-MED ONE Stop: 11/25/17 16:04 Sodium Chloride (Normal Saline) 500 mls @ 999 mls/hr IV ONETIME ONE Stop: 11/26/17 20:59 Last Admin: 11/26/17 21:32 Dose: 999 mls/hr Ketorolac Tromethamine (Toradol) 30 mg IVPUSH ONETIME [facility] Last Admin: 11/25/17 11:55 Dose: 30 mg Lidocaine/Epinephrine (Xylocaine 1% With Epinephrine 1:100,000) Confirm Administered Dose 20 ml .ROUTE .STK-MED ONE Stop: 11/25/17 14:37 Last Admin: 11/25/17 15:42 Dose: 9 ml Metoclopramide HCl (Reglan) 7.5 mg IVPUSH ONETIME ONE Stop: 11/25/17 11:20 Last Admin: 11/25/17 11:53 Dose: 7.5 mg Midazolam HCl (Versed 1 Mg/Ml) Confirm Administered Dose 2 mg .ROUTE .STK-MED ONE Stop: 11/25/17 15:05 Neostigmine Methylsulfate (Neostigmine) Confirm Administered Dose 5 mg .ROUTE .STK-MED ONE Stop: 11/25/17 16:36 Non-Formulary Medication (Potassium Citrate [Potassium Citrate]) 10 meq PO BID [facility] Ondansetron HCl (Zofran) 4 mg IVPUSH ONETIME ONE Stop: 11/25/17 14:16 Last Admin: 11/25/17 14:38 Dose: 4 mg Ondansetron HCl (Zofran) 4 mg IVPUSH ONETIME PRN PRN Reason: Nausea/Vomiting Ondansetron HCl (Zofran) Confirm Administered Dose 4 mg .ROUTE .STK-MED ONE Stop: 11/25/17 15:07 Oxycodone/Acetaminophen (Percocet 325-5 Mg) 1 tab PO Q4H PRN PRN Reason: Pain Last Admin: 11/29/17 05:55 Dose: 1 tab Potassium Chloride (Potassium Chloride Solution) 20 meq PO BID [facility] Last Admin: 11/29/17 10:36 Dose: 20 meq Potassium Chloride (Klor-Con M20) 40 meq PO ONETIME ONE Stop: 12/03/17 09:36 Last Admin: 12/03/17 10:07 Dose: 40 meq Propofol (Diprivan 20 Ml) Confirm Administered Dose 200 mg .ROUTE .STK-MED ONE Stop: 11/25/17 15:05 Rocuronium [place] (Zemuron) Confirm Administered Dose 50 mg .ROUTE .STK-MED ONE Stop: 11/25/17 15:07 Sodium Chloride (Saline Flush) 10 ml FLUSH ASDIRECTED PRN PRN Reason: Keep Vein Open - Exam Wound/Incisions: Dressing Dry and Intact GI/Abdominal Exam: Tender (Much less tenderness in the right lower quadrant on superficial and known deep palpation) - Problem List & Annotations (1) Acute appendicitis with localized peritonitis SNOMED Code(s): 727120676 Code(s): K35.3 - ACUTE APPENDICITIS WITH LOCALIZED PERITONITIS Status: Acute Priority: High Current Visit: Yes - Problem List Review Problem List Initiated/Reviewed/Updated: Yes - My Orders Last 24 Hours: Active Orders 24 hr Category Date Time Status RT Incentive Spirometry [RC] ASDIRECTED Care 12/03/17 13:35 Active Medication Orders Albuterol (Proventil Hfa) 0 gm INH Q4H PRN PRN Reason: Shortness of Breath Hydromorphone HCl (Dilaudid) 0.5 mg IVPUSH Q1H PRN PRN Reason: Pain (severe 7-10) Last Admin: 12/03/17 17:19 Dose: 0.5 mg Admin: 12/03/17 12:53 Dose: 0.5 mg Admin: 12/03/17 09:51 Dose: 0.5 mg Admin: 12/01/17 17:45 Dose: 0.5 mg Admin: 11/30/17 16:15 Dose: 0.5 mg Piperacillin Sod/Tazobactam (Sod 4.5 gm/ Sodium Chloride) 100 mls @ 25 mls/hr IV Q8H [facility] Last Admin: 12/04/17 00:49 Dose: 25 mls/hr Infusion: 12/03/17 21:05 Dose: 25 mls/hr Admin: 12/03/17 17:05 Dose: 25 mls/hr Infusion: 12/03/17 13:54 Dose: 25 mls/hr Admin: 12/03/17 09:54 Dose: 25 mls/hr Infusion: 12/03/17 05:33 Dose: 25 mls/hr Admin: 12/03/17 01:33 Dose: 25 mls/hr Infusion: 12/02/17 20:48 Dose: 25 mls/hr Admin: 12/02/17 16:48 Dose: 25 mls/hr Infusion: 12/02/17 13:29 Dose: 25 mls/hr Admin: 12/02/17 09:29 Dose: 25 mls/hr Infusion: 12/02/17 05:38 Dose: 25 mls/hr Admin: 12/02/17 01:38 Dose: 25 mls/hr Infusion: 12/01/17 21:15 Dose: 25 mls/hr Admin: 12/01/17 17:15 Dose: 25 mls/hr Infusion: 12/01/17 13:13 Dose: 25 mls/hr Admin: 12/01/17 09:13 Dose: 25 mls/hr Infusion: 12/01/17 05:10 Dose: 25 mls/hr Admin: 12/01/17 01:10 Dose: 25 mls/hr Infusion: 11/30/17 20:17 Dose: 25 mls/hr Admin: 11/30/17 16:17 Dose: 25 mls/hr Infusion: 11/30/17 12:35 Dose: 25 mls/hr Admin: 11/30/17 08:35 Dose: 25 mls/hr Infusion: 11/30/17 04:42 Dose: 25 mls/hr Admin: 11/30/17 00:42 Dose: 25 mls/hr Infusion: 11/29/17 20:30 Dose: 25 mls/hr Admin: 11/29/17 16:30 Dose: 25 mls/hr Infusion: 11/29/17 12:30 Dose: 25 mls/hr Admin: 11/29/17 08:30 Dose: 25 mls/hr Infusion: 11/29/17 05:43 Dose: 25 mls/hr Admin: 11/29/17 01:43 Dose: 25 mls/hr Infusion: 11/28/17 20:14 Dose: 25 mls/hr Admin: 11/28/17 16:14 Dose: 25 mls/hr Infusion: 11/28/17 12:40 Dose: 0 mls/hr Admin: 11/28/17 08:39 Dose: 25 mls/hr Infusion: 11/28/17 04:28 Dose: 25 mls/hr Admin: 11/28/17 00:28 Dose: 25 mls/hr Infusion: 11/27/17 21:25 Dose: 25 mls/hr Admin: 11/27/17 17:25 Dose: 25 mls/hr Infusion: 11/27/17 12:42 Dose: 25 mls/hr Admin: 11/27/17 08:42 Dose: 25 mls/hr Infusion: 11/27/17 04:27 Dose: 25 mls/hr Admin: 11/27/17 00:27 Dose: 25 mls/hr Infusion: 11/26/17 20:41 Dose: 25 mls/hr Admin: 11/26/17 16:41 Dose: 25 mls/hr Infusion: 11/26/17 12:28 Dose: 25 mls/hr Admin: 11/26/17 08:28 Dose: 25 mls/hr Infusion: 11/26/17 05:02 Dose: 25 mls/hr Admin: 11/26/17 01:02 Dose: 25 mls/hr Admin: 11/25/17 20:17 Dose: Admin: 11/25/17 20:17 Dose: Admin: 11/25/17 20:17 Dose: Ketorolac Tromethamine (Toradol) 30 mg IVPUSH Q6H PRN PRN Reason: Pain Last Admin: 11/27/17 08:41 Dose: 30 mg Admin: 11/27/17 00:29 Dose: 30 mg Admin: 11/26/17 18:23 Dose: 30 mg Admin: 11/26/17 12:21 Dose: 30 mg Loperamide HCl (Imodium) 2 mg PO Q4H PRN PRN Reason: Diarrhea Losartan Potassium (Cozaar) 25 mg PO DAILY [facility] Last Admin: 12/03/17 09:53 Dose: 25 mg Admin: 12/02/17 09:27 Dose: 25 mg Admin: 12/01/17 09:08 Dose: 25 mg Admin: 11/30/17 08:32 Dose: 25 mg Admin: 11/29/17 08:28 Dose: 25 mg Admin: 11/28/17 08:37 Dose: 25 mg Ondansetron HCl (Zofran) 4 mg IVPUSH Q6H PRN PRN Reason: Nausea/Vomiting Oxycodone/Acetaminophen (Percocet 325-5 Mg) 2 tab PO Q4H PRN PRN Reason: Pain Last Admin: 12/04/17 07:02 Dose: 2 tab Admin: 12/04/17 00:52 Dose: 2 tab Admin: 12/03/17 19:30 Dose: 2 tab Admin: 12/03/17 15:17 Dose: 2 tab Admin: 12/03/17 10:56 Dose: 2 tab Admin: 12/02/17 22:17 Dose: 2 tab Admin: 12/02/17 17:50 Dose: 2 tab Admin: 12/02/17 13:49 Dose: 2 tab Admin: 12/02/17 09:27 Dose: 2 tab Admin: 12/02/17 03:46 Dose: 2 tab Admin: 12/01/17 21:59 Dose: 2 tab Admin: 12/01/17 14:27 Dose: 2 tab Admin: 12/01/17 09:09 Dose: 2 tab Admin: 11/30/17 23:36 Dose: 2 tab Admin: 11/30/17 14:17 Dose: 2 tab Admin: 11/30/17 08:32 Dose: 2 tab Admin: 11/30/17 00:51 Dose: 2 tab Admin: 11/29/17 20:27 Dose: 2 tab Admin: 11/29/17 15:39 Dose: 2 tab Admin: 11/29/17 10:36 Dose: 2 tab Potassium Chloride (Klor-Con 10) 10 meq PO BID [facility] Last Admin: 12/03/17 21:33 Dose: 10 meq Admin: 12/03/17 09:53 Dose: 10 meq Admin: 12/02/17 20:54 Dose: 10 meq Admin: 12/02/17 09:27 Dose: 10 meq Admin: 12/01/17 21:59 Dose: 10 meq Admin: 12/01/17 09:09 Dose: 10 meq Admin: 11/30/17 20:09 Dose: 10 meq Admin: 11/30/17 08:31 Dose: 10 meq Admin: 11/29/17 20:29 Dose: 10 meq Risperidone (Risperidal) 2 mg PO BEDTIME [facility] Last Admin: 12/03/17 21:33 Dose: 2 mg Admin: 12/02/17 20:54 Dose: 2 mg Admin: 12/01/17 21:59 Dose: 2 mg Admin: 11/30/17 20:09 Dose: 2 mg Admin: 11/29/17 20:29 Dose: 2 mg Admin: 11/28/17 20:30 Dose: 2 mg Saccharomyces Boulardii (Florastor) 250 mg PO DAILY [facility] Last Admin: 12/03/17 09:53 Dose: 250 mg Admin: 12/02/17 09:27 Dose: 250 mg Admin: 12/01/17 09:09 Dose: 250 mg Admin: 11/30/17 08:31 Dose: 250 mg Admin: 11/29/17 08:29 Dose: 250 mg Admin: 11/28/17 08:36 Dose: 250 mg Admin: 11/27/17 17:25 Dose: 250 mg Sodium Chloride (Saline Flush) 10 ml FLUSH ASDIRECTED PRN PRN Reason: Keep Vein Open Last Admin: 11/25/17 14:38 Dose: 10 ml Timolol Maleate (Timoptic 0.5% Ophth Soln) 0 ml EYEBOTH DAILY [facility] Last Admin: 12/03/17 09:55 Dose: 1 drop Admin: 12/02/17 09:28 Dose: 1 drop Admin: 12/01/17 09:09 Dose: 1 drop Admin: 11/30/17 08:34 Dose: 1 drop Admin: 11/29/17 08:29 Dose: 1 drop Admin: 11/28/17 08:37 Dose: 1 drop Zolpidem Tartrate (Ambien) 5 mg PO BEDTIME PRN PRN Reason: Insomnia - Assessment Assessment (Free Text/Narrative):: Evolving inflammatory infectious process. Improving daily. - Plan Plan (Free Text/Narrative):: Same.
[2017-12-04] MEDS: Losartan 25 MG Tab PO SCH (10:01)
[2017-12-04] MEDS: Potassium Chloride 10 MEQ Tab.ER PO SCH ×2 (10:02→20:29)
[2017-12-04] MEDS: Saccharomyces Boulardii (Probiotic) 250 MG Cap PO SCH (10:02)
[2017-12-04] MEDS: Timolol Maleate 0.5% Ophth Soln 5 ML Bottle EYEBOTH SCH (10:03)
[2017-12-04] MEDS: HYDROmorphone 0.5 MG/0.5 ML SYRINGE IVPUSH PRN ×2 (10:06→22:06)
[2017-12-04] MEDS: risperiDONE 1 MG Tab PO SCH (20:29)
[2017-12-05] MEDS: Acetaminophen/oxyCODONE 325-5 MG Tab PO PRN ×5 (00:12→22:15)
[2017-12-05] MEDS: Piperacillin/Tazobactam 4.5 GM in Sodium Chloride 0.9% 100 ML IV SCH ×3 (00:13→17:14)
--- NOTE | 2017-12-05 06:47 | PCM.SURGPN ---
- General Info Date of Service: 12/05/17 Functional Status: Reports: Pain Controlled, Tolerating Diet, Ambulating, Urinating - Patient Data Vitals - Most Recent: Last Vital Signs Temp 36.3 C 12/05/17 04:18 Pulse 69 12/05/17 04:18 Resp 18 12/05/17 04:18 BP 115/69 12/05/17 04:18 Pulse Ox 95 12/05/17 04:18 Weight - Most Recent: 88.178 kg I&O - Last 24 Hours: Intake & Output 12/04/17 12/04/17 12/05/17 14:59 22:59 06:59 Intake Total 240 790 600 Output Total 1070 Balance -830 790 600 Lab Results Last 24 Hrs: Laboratory Results - last 24 hr 12/04/17 12/05/17 Range/Units 06:58 06:38 POC Glucose 116 H 124 H (70-105) mg/dL Med Orders - Current: Current Medications Albuterol (Proventil Hfa) 0 gm INH Q4H PRN PRN Reason: Shortness of Breath Hydromorphone HCl (Dilaudid) 0.5 mg IVPUSH Q1H PRN PRN Reason: Pain (severe 7-10) Last Admin: 12/04/17 22:06 Dose: 0.5 mg Piperacillin Sod/Tazobactam (Sod 4.5 gm/ Sodium Chloride) 100 mls @ 25 mls/hr IV Q8H [facility] Last Admin: 12/05/17 00:13 Dose: 25 mls/hr Ketorolac Tromethamine (Toradol) 30 mg IVPUSH Q6H PRN PRN Reason: Pain Last Admin: 11/27/17 08:41 Dose: 30 mg Loperamide HCl (Imodium) 2 mg PO Q4H PRN PRN Reason: Diarrhea Losartan Potassium (Cozaar) 25 mg PO DAILY [facility] Last Admin: 12/04/17 10:01 Dose: 25 mg Ondansetron HCl (Zofran) 4 mg IVPUSH Q6H PRN PRN Reason: Nausea/Vomiting Oxycodone/Acetaminophen (Percocet 325-5 Mg) 2 tab PO Q4H PRN PRN Reason: Pain Last Admin: 12/05/17 04:19 Dose: 2 tab Potassium Chloride (Klor-Con 10) 10 meq PO BID [facility] Last Admin: 12/04/17 20:29 Dose: 10 meq Risperidone (Risperidal) 2 mg PO BEDTIME [facility] Last Admin: 12/04/17 20:29 Dose: 2 mg Saccharomyces Boulardii (Florastor) 250 mg PO DAILY [facility] Last Admin: 12/04/17 10:02 Dose: 250 mg Sodium Chloride (Saline Flush) 10 ml FLUSH ASDIRECTED PRN PRN Reason: Keep Vein Open Last Admin: 11/25/17 14:38 Dose: 10 ml Timolol Maleate (Timoptic 0.5% Ophth Soln) 0 ml EYEBOTH DAILY [facility] Last Admin: 12/04/17 10:03 Dose: 1 drop Zolpidem Tartrate (Ambien) 5 mg PO BEDTIME PRN PRN Reason: Insomnia Discontinued Medications Bupivacaine HCl/Epinephrine Bitart (Marcaine 0.5%/Epinephrine 1:200,000) Confirm Administered Dose 50 ml .ROUTE .STK-MED ONE Stop: 11/25/17 14:38 Last Admin: 11/25/17 15:42 Dose: 9 ml Diatrizoate Meglum/Diatrizoate Sod (Gastrografin 37%) 120 ml PO ONETIME ONE Stop: 11/25/17 13:32 Last Admin: 11/25/17 13:38 Dose: 90 ml Diphenhydramine HCl (Benadryl) 25 mg IVPUSH ONETIME ONE Stop: 11/25/17 14:16 Last Admin: 11/25/17 14:38 Dose: 25 mg Diphenhydramine HCl (Benadryl) 25 mg IVPUSH Q6H PRN PRN Reason: Pruritis Fentanyl (Sublimaze) 50 mcg IVPUSH Q5M PRN PRN Reason: Pain Fentanyl (Sublimaze) Confirm Administered Dose 250 mcg .ROUTE .STK-MED ONE Stop: 11/25/17 15:05 Glycopyrrolate () Confirm Administered Dose 1 mg .ROUTE .STK-MED ONE Stop: 11/25/17 16:36 Hydromorphone HCl (Dilaudid) 0.5 mg IVPUSH ONETIME ONE Stop: 11/25/17 12:21 Last Admin: 11/25/17 12:47 Dose: 0.5 mg Hydromorphone HCl (Dilaudid) 0.5 mg IVPUSH Q1H PRN PRN Reason: Pain (severe 7-10) Last Admin: 11/27/17 00:28 Dose: 0.5 mg Hydromorphone HCl (Dilaudid) 0.5 mg IVPUSH Q15M PRN PRN Reason: Pain (severe 7-10) Hydromorphone HCl (Dilaudid) Confirm Administered Dose 1 mg .ROUTE .STK-MED ONE Stop: 11/25/17 16:02 Hydromorphone HCl (Dilaudid) 0.5 mg IVPUSH Q1H PRN PRN Reason: Pain (severe 7-10) Last Admin: 11/30/17 12:06 Dose: 0.5 mg Dextrose/Sodium Chloride (Dextrose 5%-Normal Saline) 1,000 mls [facility] Admin: 11/25/17 11:57 Dose: 500 mls/hr Levofloxacin/Dextrose 750 mg/ (Premix) 150 mls @ 100 mls/hr IV ONETIME ONE Stop: 11/25/17 13:55 Last Admin: 11/25/17 12:53 Dose: 100 mls/hr Cefoxitin Sodium 2 gm/ Premix 50 mls @ 100 mls/hr IV ONETIME ONE Stop: 11/25/17 14:37 Last Admin: 11/25/17 14:59 Dose: Not Given Cefoxitin Sodium 1 gm/ Premix 50 mls @ 100 mls/hr IV ONETIME ONE Stop: 11/25/17 15:01 Last Admin: 11/25/17 15:00 Dose: 100 mls/hr Sodium Chloride (Normal Saline) 1,000 mls @ 999 [facility] Last Admin: 11/25/17 14:47 Dose: 999 mls/hr Sodium Chloride (Normal Saline) 1,000 mls @ 125 [facility] Last Admin: 11/27/17 00:26 Dose: 125 mls/hr Piperacillin Sod/Tazobactam (Sod 4.5 gm/ Sodium Chloride) 100 mls @ 200 mls/hr IV ONETIME ONE Stop: 11/25/17 17:29 Last Admin: 11/25/17 19:05 Dose: 200 mls/hr Lidocaine HCl (Xylocaine-Mpf 1%) Confirm Administered Dose 4 mls @ as directed .ROUTE .STK-MED ONE Stop: 11/25/17 15:07 Lactated Ringer's (Ringers, Lactated) Confirm Administered Dose 1,000 mls @ as directed .ROUTE .STK-MED ONE Stop: 11/25/17 16:04 Sodium Chloride (Normal Saline) 500 mls @ 999 mls/hr IV ONETIME ONE Stop: 11/26/17 20:59 Last Admin: 11/26/17 21:32 Dose: 999 mls/hr Ketorolac Tromethamine (Toradol) 30 mg IVPUSH ONETIME [facility] Last Admin: 11/25/17 11:55 Dose: 30 mg Lidocaine/Epinephrine (Xylocaine 1% With Epinephrine 1:100,000) Confirm Administered Dose 20 ml .ROUTE .STK-MED ONE Stop: 11/25/17 14:37 Last Admin: 11/25/17 15:42 Dose: 9 ml Metoclopramide HCl (Reglan) 7.5 mg IVPUSH ONETIME ONE Stop: 11/25/17 11:20 Last Admin: 11/25/17 11:53 Dose: 7.5 mg Midazolam HCl (Versed 1 Mg/Ml) Confirm Administered Dose 2 mg .ROUTE .STK-MED ONE Stop: 11/25/17 15:05 Neostigmine Methylsulfate (Neostigmine) Confirm Administered Dose 5 mg .ROUTE .STK-MED ONE Stop: 11/25/17 16:36 Non-Formulary Medication (Potassium Citrate [Potassium Citrate]) 10 meq PO BID [facility] Ondansetron HCl (Zofran) 4 mg IVPUSH ONETIME ONE Stop: 11/25/17 14:16 Last Admin: 11/25/17 14:38 Dose: 4 mg Ondansetron HCl (Zofran) 4 mg IVPUSH ONETIME PRN PRN Reason: Nausea/Vomiting Ondansetron HCl (Zofran) Confirm Administered Dose 4 mg .ROUTE .STK-MED ONE Stop: 11/25/17 15:07 Oxycodone/Acetaminophen (Percocet 325-5 Mg) 1 tab PO Q4H PRN PRN Reason: Pain Last Admin: 11/29/17 05:55 Dose: 1 tab Potassium Chloride (Potassium Chloride Solution) 20 meq PO BID [facility] Last Admin: 11/29/17 10:36 Dose: 20 meq Potassium Chloride (Klor-Con M20) 40 meq PO ONETIME ONE Stop: 12/03/17 09:36 Last Admin: 12/03/17 10:07 Dose: 40 meq Propofol (Diprivan 20 Ml) Confirm Administered Dose 200 mg .ROUTE .STK-MED ONE Stop: 11/25/17 15:05 Rocuronium [place] (Zemuron) Confirm Administered Dose 50 mg .ROUTE .STK-MED ONE Stop: 11/25/17 15:07 Sodium Chloride (Saline Flush) 10 ml FLUSH ASDIRECTED PRN PRN Reason: Keep Vein Open - Exam Wound/Incisions: No Drainage GI/Abdominal Exam: Other (Decreased right lower quadrant abdominal discomfort) - Problem List & Annotations (1) Acute appendicitis with localized peritonitis SNOMED Code(s): 272656583 Code(s): K35.3 - ACUTE APPENDICITIS WITH LOCALIZED PERITONITIS Status: Acute Priority: High Current Visit: Yes - Problem List Review Problem List Initiated/Reviewed/Updated: Yes - My Orders Last 24 Hours: Active Orders 24 hr Category Date Time Status BMP [BASIC METABOLIC PANEL,BMP] [CHEM] Routine Lab 12/05/17 05:23 Received CBC WITH AUTO DIFF [HEME] Routine Lab 12/05/17 05:23 Received Medication Orders Albuterol (Proventil Hfa) 0 gm INH Q4H PRN PRN Reason: Shortness of Breath Hydromorphone HCl (Dilaudid) 0.5 mg IVPUSH Q1H PRN PRN Reason: Pain (severe 7-10) Last Admin: 12/04/17 22:06 Dose: 0.5 mg Admin: 12/04/17 10:06 Dose: 0.5 mg Admin: 12/03/17 17:19 Dose: 0.5 mg Admin: 12/03/17 12:53 Dose: 0.5 mg Admin: 12/03/17 09:51 Dose: 0.5 mg Admin: 12/01/17 17:45 Dose: 0.5 mg Admin: 11/30/17 16:15 Dose: 0.5 mg Piperacillin Sod/Tazobactam (Sod 4.5 gm/ Sodium Chloride) 100 mls @ 25 mls/hr IV Q8H [facility] Last Admin: 12/05/17 00:13 Dose: 25 mls/hr Infusion: 12/04/17 20:35 Dose: 25 mls/hr Admin: 12/04/17 16:35 Dose: 25 mls/hr Infusion: 12/04/17 14:06 Dose: 25 mls/hr Infusion: 12/04/17 10:15 Dose: 25 mls/hr Admin: 12/04/17 10:05 Dose: 25 mls/hr Infusion: 12/04/17 04:49 Dose: 25 mls/hr Admin: 12/04/17 00:49 Dose: 25 mls/hr Infusion: 12/03/17 21:05 Dose: 25 mls/hr Admin: 12/03/17 17:05 Dose: 25 mls/hr Infusion: 12/03/17 13:54 Dose: 25 mls/hr Admin: 12/03/17 09:54 Dose: 25 mls/hr Infusion: 12/03/17 05:33 Dose: 25 mls/hr Admin: 12/03/17 01:33 Dose: 25 mls/hr Infusion: 12/02/17 20:48 Dose: 25 mls/hr Admin: 12/02/17 16:48 Dose: 25 mls/hr Infusion: 12/02/17 13:29 Dose: 25 mls/hr Admin: 12/02/17 09:29 Dose: 25 mls/hr Infusion: 12/02/17 05:38 Dose: 25 mls/hr Admin: 12/02/17 01:38 Dose: 25 mls/hr Infusion: 12/01/17 21:15 Dose: 25 mls/hr Admin: 12/01/17 17:15 Dose: 25 mls/hr Infusion: 12/01/17 13:13 Dose: 25 mls/hr Admin: 12/01/17 09:13 Dose: 25 mls/hr Infusion: 12/01/17 05:10 Dose: 25 mls/hr Admin: 12/01/17 01:10 Dose: 25 mls/hr Infusion: 11/30/17 20:17 Dose: 25 mls/hr Admin: 11/30/17 16:17 Dose: 25 mls/hr Infusion: 11/30/17 12:35 Dose: 25 mls/hr Admin: 11/30/17 08:35 Dose: 25 mls/hr Infusion: 11/30/17 04:42 Dose: 25 mls/hr Admin: 11/30/17 00:42 Dose: 25 mls/hr Infusion: 11/29/17 20:30 Dose: 25 mls/hr Admin: 11/29/17 16:30 Dose: 25 mls/hr Infusion: 11/29/17 12:30 Dose: 25 mls/hr Admin: 11/29/17 08:30 Dose: 25 mls/hr Infusion: 11/29/17 05:43 Dose: 25 mls/hr Admin: 11/29/17 01:43 Dose: 25 mls/hr Infusion: 11/28/17 20:14 Dose: 25 mls/hr Admin: 11/28/17 16:14 Dose: 25 mls/hr Infusion: 11/28/17 12:40 Dose: 0 mls/hr Admin: 11/28/17 08:39 Dose: 25 mls/hr Infusion: 11/28/17 04:28 Dose: 25 mls/hr Admin: 11/28/17 00:28 Dose: 25 mls/hr Infusion: 11/27/17 21:25 Dose: 25 mls/hr Admin: 11/27/17 17:25 Dose: 25 mls/hr Infusion: 11/27/17 12:42 Dose: 25 mls/hr Admin: 11/27/17 08:42 Dose: 25 mls/hr Infusion: 11/27/17 04:27 Dose: 25 mls/hr Admin: 11/27/17 00:27 Dose: 25 mls/hr Infusion: 11/26/17 20:41 Dose: 25 mls/hr Admin: 11/26/17 16:41 Dose: 25 mls/hr Infusion: 11/26/17 12:28 Dose: 25 mls/hr Admin: 11/26/17 08:28 Dose: 25 mls/hr Infusion: 11/26/17 05:02 Dose: 25 mls/hr Admin: 11/26/17 01:02 Dose: 25 mls/hr Admin: 11/25/17 20:17 Dose: Admin: 11/25/17 20:17 Dose: Admin: 11/25/17 20:17 Dose: Ketorolac Tromethamine (Toradol) 30 mg IVPUSH Q6H PRN PRN Reason: Pain Last Admin: 11/27/17 08:41 Dose: 30 mg Admin: 11/27/17 00:29 Dose: 30 mg Admin: 11/26/17 18:23 Dose: 30 mg Admin: 11/26/17 12:21 Dose: 30 mg Loperamide HCl (Imodium) 2 mg PO Q4H PRN PRN Reason: Diarrhea Losartan Potassium (Cozaar) 25 mg PO DAILY [facility] Last Admin: 12/04/17 10:01 Dose: 25 mg Admin: 12/03/17 09:53 Dose: 25 mg Admin: 12/02/17 09:27 Dose: 25 mg Admin: 12/01/17 09:08 Dose: 25 mg Admin: 11/30/17 08:32 Dose: 25 mg Admin: 11/29/17 08:28 Dose: 25 mg Admin: 11/28/17 08:37 Dose: 25 mg Ondansetron HCl (Zofran) 4 mg IVPUSH Q6H PRN PRN Reason: Nausea/Vomiting Oxycodone/Acetaminophen (Percocet 325-5 Mg) 2 tab PO Q4H PRN PRN Reason: Pain Last Admin: 12/05/17 04:19 Dose: 2 tab Admin: 12/05/17 00:12 Dose: 2 tab Admin: 12/04/17 20:27 Dose: 2 tab Admin: 12/04/17 14:05 Dose: 2 tab Admin: 12/04/17 07:02 Dose: 2 tab Admin: 12/04/17 00:52 Dose: 2 tab Admin: 12/03/17 19:30 Dose: 2 tab Admin: 12/03/17 15:17 Dose: 2 tab Admin: 12/03/17 10:56 Dose: 2 tab Admin: 12/02/17 22:17 Dose: 2 tab Admin: 12/02/17 17:50 Dose: 2 tab Admin: 12/02/17 13:49 Dose: 2 tab Admin: 12/02/17 09:27 Dose: 2 tab Admin: 12/02/17 03:46 Dose: 2 tab Admin: 12/01/17 21:59 Dose: 2 tab Admin: 12/01/17 14:27 Dose: 2 tab Admin: 12/01/17 09:09 Dose: 2 tab Admin: 11/30/17 23:36 Dose: 2 tab Admin: 11/30/17 14:17 Dose: 2 tab Admin: 11/30/17 08:32 Dose: 2 tab Admin: 11/30/17 00:51 Dose: 2 tab Admin: 11/29/17 20:27 Dose: 2 tab Admin: 11/29/17 15:39 Dose: 2 tab Admin: 11/29/17 10:36 Dose: 2 tab Potassium Chloride (Klor-Con 10) 10 meq PO BID [facility] Last Admin: 12/04/17 20:29 Dose: 10 meq Admin: 12/04/17 10:02 Dose: 10 meq Admin: 12/03/17 21:33 Dose: 10 meq Admin: 12/03/17 09:53 Dose: 10 meq Admin: 12/02/17 20:54 Dose: 10 meq Admin: 12/02/17 09:27 Dose: 10 meq Admin: 12/01/17 21:59 Dose: 10 meq Admin: 12/01/17 09:09 Dose: 10 meq Admin: 11/30/17 20:09 Dose: 10 meq Admin: 11/30/17 08:31 Dose: 10 meq Admin: 11/29/17 20:29 Dose: 10 meq Risperidone (Risperidal) 2 mg PO BEDTIME [facility] Last Admin: 12/04/17 20:29 Dose: 2 mg Admin: 12/03/17 21:33 Dose: 2 mg Admin: 12/02/17 20:54 Dose: 2 mg Admin: 12/01/17 21:59 Dose: 2 mg Admin: 11/30/17 20:09 Dose: 2 mg Admin: 11/29/17 20:29 Dose: 2 mg Admin: 11/28/17 20:30 Dose: 2 mg Saccharomyces Boulardii (Florastor) 250 mg PO DAILY [facility] Last Admin: 12/04/17 10:02 Dose: 250 mg Admin: 12/03/17 09:53 Dose: 250 mg Admin: 12/02/17 09:27 Dose: 250 mg Admin: 12/01/17 09:09 Dose: 250 mg Admin: 11/30/17 08:31 Dose: 250 mg Admin: 11/29/17 08:29 Dose: 250 mg Admin: 11/28/17 08:36 Dose: 250 mg Admin: 11/27/17 17:25 Dose: 250 mg Sodium Chloride (Saline Flush) 10 ml FLUSH ASDIRECTED PRN PRN Reason: Keep Vein Open Last Admin: 11/25/17 14:38 Dose: 10 ml Timolol Maleate (Timoptic 0.5% Ophth Soln) 0 ml EYEBOTH DAILY [facility] Last Admin: 12/04/17 10:03 Dose: 1 drop Admin: 12/03/17 09:55 Dose: 1 drop Admin: 12/02/17 09:28 Dose: 1 drop Admin: 12/01/17 09:09 Dose: 1 drop Admin: 11/30/17 08:34 Dose: 1 drop Admin: 11/29/17 08:29 Dose: 1 drop Admin: 11/28/17 08:37 Dose: 1 drop Zolpidem Tartrate (Ambien) 5 mg PO BEDTIME PRN PRN Reason: Insomnia - Assessment Assessment (Free Text/Narrative):: Better. - Plan Plan (Free Text/Narrative):: Plan the same. I'll check his labs.
[2017-12-05] MEDS: Saccharomyces Boulardii (Probiotic) 250 MG Cap PO SCH (08:47)
[2017-12-05] MEDS: Losartan 25 MG Tab PO SCH (08:52)
[2017-12-05] MEDS: Potassium Chloride 10 MEQ Tab.ER PO SCH ×2 (08:53→22:14)
[2017-12-05] MEDS: Timolol Maleate 0.5% Ophth Soln 5 ML Bottle EYEBOTH SCH (08:55)
[2017-12-05] MEDS: HYDROmorphone 0.5 MG/0.5 ML SYRINGE IVPUSH PRN (11:18)
[2017-12-05] MEDS: risperiDONE 1 MG Tab PO SCH (22:15)
[2017-12-06] MEDS: Piperacillin/Tazobactam 4.5 GM in Sodium Chloride 0.9% 100 ML IV SCH ×3 (00:19→18:06)
[2017-12-06] MEDS: Losartan 25 MG Tab PO SCH (08:17)
[2017-12-06] MEDS: Saccharomyces Boulardii (Probiotic) 250 MG Cap PO SCH (08:17)
[2017-12-06] MEDS: Acetaminophen/oxyCODONE 325-5 MG Tab PO PRN ×3 (08:17→21:26)
[2017-12-06] MEDS: Potassium Chloride 10 MEQ Tab.ER PO SCH ×2 (08:18→21:27)
[2017-12-06] MEDS: Timolol Maleate 0.5% Ophth Soln 5 ML Bottle EYEBOTH SCH (08:18)
--- NOTE | 2017-12-06 12:24 | PCM.SURGPN ---
- General Info Date of Service: 12/06/17 Functional Status: Reports: Pain Controlled, Tolerating Diet, Ambulating, Urinating - Patient Data Vitals - Most Recent: Last Vital Signs Temp 36.0 C 12/06/17 11:52 Pulse 79 12/06/17 11:52 Resp 14 12/06/17 11:52 BP 99/61 12/06/17 11:52 Pulse Ox 97 12/06/17 11:52 Weight - Most Recent: 87.044 kg I&O - Last 24 Hours: Intake & Output 12/05/17 12/06/17 12/06/17 22:59 06:59 14:59 Intake Total 100 200 Output Total 475 Balance 100 -275 Lab Results Last 24 Hrs: Laboratory Results - last 24 hr 12/06/17 12/06/17 Range/Units 05:40 11:50 POC Glucose 115 H 153 H (70-105) mg/dL Med Orders - Current: Current Medications Albuterol (Proventil Hfa) 0 gm INH Q4H PRN PRN Reason: Shortness of Breath Hydromorphone HCl (Dilaudid) 0.5 mg IVPUSH Q1H PRN PRN Reason: Pain (severe 7-10) Last Admin: 12/05/17 11:18 Dose: 0.5 mg Piperacillin Sod/Tazobactam (Sod 4.5 gm/ Sodium Chloride) 100 mls @ 25 mls/hr IV Q8H [facility] Last Admin: 12/06/17 08:19 Dose: 25 mls/hr Ketorolac Tromethamine (Toradol) 30 mg IVPUSH Q6H PRN PRN Reason: Pain Last Admin: 11/27/17 08:41 Dose: 30 mg Loperamide HCl (Imodium) 2 mg PO Q4H PRN PRN Reason: Diarrhea Losartan Potassium (Cozaar) 25 mg PO DAILY [facility] Last Admin: 12/06/17 08:17 Dose: 25 mg Ondansetron HCl (Zofran) 4 mg IVPUSH Q6H PRN PRN Reason: Nausea/Vomiting Oxycodone/Acetaminophen (Percocet 325-5 Mg) 2 tab PO Q4H PRN PRN Reason: Pain Last Admin: 12/06/17 08:17 Dose: 2 tab Potassium Chloride (Klor-Con 10) 10 meq PO BID [facility] Last Admin: 12/06/17 08:18 Dose: 10 meq Risperidone (Risperidal) 2 mg PO BEDTIME [facility] Last Admin: 12/05/17 22:15 Dose: 2 mg Saccharomyces Boulardii (Florastor) 250 mg PO DAILY [facility] Last Admin: 12/06/17 08:17 Dose: 250 mg Sodium Chloride (Saline Flush) 10 ml FLUSH ASDIRECTED PRN PRN Reason: Keep Vein Open Last Admin: 11/25/17 14:38 Dose: 10 ml Timolol Maleate (Timoptic 0.5% Ophth Soln) 0 ml EYEBOTH DAILY [facility] Last Admin: 12/06/17 08:18 Dose: 1 drop Zolpidem Tartrate (Ambien) 5 mg PO BEDTIME PRN PRN Reason: Insomnia Discontinued Medications Bupivacaine HCl/Epinephrine Bitart (Marcaine 0.5%/Epinephrine 1:200,000) Confirm Administered Dose 50 ml .ROUTE .STK-MED ONE Stop: 11/25/17 14:38 Last Admin: 11/25/17 15:42 Dose: 9 ml Diatrizoate Meglum/Diatrizoate Sod (Gastrografin 37%) 120 ml PO ONETIME ONE Stop: 11/25/17 13:32 Last Admin: 11/25/17 13:38 Dose: 90 ml Diphenhydramine HCl (Benadryl) 25 mg IVPUSH ONETIME ONE Stop: 11/25/17 14:16 Last Admin: 11/25/17 14:38 Dose: 25 mg Diphenhydramine HCl (Benadryl) 25 mg IVPUSH Q6H PRN PRN Reason: Pruritis Fentanyl (Sublimaze) 50 mcg IVPUSH Q5M PRN PRN Reason: Pain Fentanyl (Sublimaze) Confirm Administered Dose 250 mcg .ROUTE .STK-MED ONE Stop: 11/25/17 15:05 Glycopyrrolate () Confirm Administered Dose 1 mg .ROUTE .STK-MED ONE Stop: 11/25/17 16:36 Hydromorphone HCl (Dilaudid) 0.5 mg IVPUSH ONETIME ONE Stop: 11/25/17 12:21 Last Admin: 11/25/17 12:47 Dose: 0.5 mg Hydromorphone HCl (Dilaudid) 0.5 mg IVPUSH Q1H PRN PRN Reason: Pain (severe 7-10) Last Admin: 11/27/17 00:28 Dose: 0.5 mg Hydromorphone HCl (Dilaudid) 0.5 mg IVPUSH Q15M PRN PRN Reason: Pain (severe 7-10) Hydromorphone HCl (Dilaudid) Confirm Administered Dose 1 mg .ROUTE .STK-MED ONE Stop: 11/25/17 16:02 Hydromorphone HCl (Dilaudid) 0.5 mg IVPUSH Q1H PRN PRN Reason: Pain (severe 7-10) Last Admin: 11/30/17 12:06 Dose: 0.5 mg Dextrose/Sodium Chloride (Dextrose 5%-Normal Saline) 1,000 mls @ 500 [facility]ls[facility] Last Admin: 11/25/17 11:57 Dose: 500 mls/hr Levofloxacin/Dextrose 750 mg/ (Premix) 150 mls @ 100 mls/hr IV ONETIME ONE Stop: 11/25/17 13:55 Last Admin: 11/25/17 12:53 Dose: 100 mls/hr Cefoxitin Sodium 2 gm/ Premix 50 mls @ 100 mls/hr IV ONETIME ONE Stop: 11/25/17 14:37 Last Admin: 11/25/17 14:59 Dose: Not Given Cefoxitin Sodium 1 gm/ Premix 50 mls @ 100 mls/hr IV ONETIME ONE Stop: 11/25/17 15:01 Last Admin: 11/25/17 15:00 Dose: 100 mls/hr Sodium Chloride (Normal Saline) 1,000 mls @ 999 mls/hr [facility] Last Admin: 11/25/17 14:47 Dose: 999 mls/hr Sodium Chloride (Normal Saline) 1,000 mls [facility] Last Admin: 11/27/17 00:26 Dose: 125 mls/hr Piperacillin Sod/Tazobactam (Sod 4.5 gm/ Sodium Chloride) 100 mls @ 200 mls/hr IV ONETIME ONE Stop: 11/25/17 17:29 Last Admin: 11/25/17 19:05 Dose: 200 mls/hr Lidocaine HCl (Xylocaine-Mpf 1%) Confirm Administered Dose 4 mls @ as directed .ROUTE .STK-MED ONE Stop: 11/25/17 15:07 Lactated Ringer's (Ringers, Lactated) Confirm Administered Dose 1,000 mls @ as directed .ROUTE .STK-MED ONE Stop: 11/25/17 16:04 Sodium Chloride (Normal Saline) 500 mls @ 999 mls/hr IV ONETIME ONE Stop: 11/26/17 20:59 Last Admin: 11/26/17 21:32 Dose: 999 mls/hr Ketorolac Tromethamine (Toradol) 30 mg IVPUSH ONETIME [facility] Last Admin: 11/25/17 11:55 Dose: 30 mg Lidocaine/Epinephrine (Xylocaine 1% With Epinephrine 1:100,000) Confirm Administered Dose 20 ml .ROUTE .STK-MED ONE Stop: 11/25/17 14:37 Last Admin: 11/25/17 15:42 Dose: 9 ml Metoclopramide HCl (Reglan) 7.5 mg IVPUSH ONETIME ONE Stop: 11/25/17 11:20 Last Admin: 11/25/17 11:53 Dose: 7.5 mg Midazolam HCl (Versed 1 Mg/Ml) Confirm Administered Dose 2 mg .ROUTE .STK-MED ONE Stop: 11/25/17 15:05 Neostigmine Methylsulfate (Neostigmine) Confirm Administered Dose 5 mg .ROUTE .STK-MED ONE Stop: 11/25/17 16:36 Non-Formulary Medication (Potassium Citrate [Potassium Citrate]) 10 meq PO BID [facility] Ondansetron HCl (Zofran) 4 mg IVPUSH ONETIME ONE Stop: 11/25/17 14:16 Last Admin: 11/25/17 14:38 Dose: 4 mg Ondansetron HCl (Zofran) 4 mg IVPUSH ONETIME PRN PRN Reason: Nausea/Vomiting Ondansetron HCl (Zofran) Confirm Administered Dose 4 mg .ROUTE .STK-MED ONE Stop: 11/25/17 15:07 Oxycodone/Acetaminophen (Percocet 325-5 Mg) 1 tab PO Q4H PRN PRN Reason: Pain Last Admin: 11/29/17 05:55 Dose: 1 tab Potassium Chloride (Potassium Chloride Solution) 20 meq PO BID [facility] Last Admin: 11/29/17 10:36 Dose: 20 meq Potassium Chloride (Klor-Con M20) 40 meq PO ONETIME ONE Stop: 12/03/17 09:36 Last Admin: 12/03/17 10:07 Dose: 40 meq Propofol (Diprivan 20 Ml) Confirm Administered Dose 200 mg .ROUTE .STK-MED ONE Stop: 11/25/17 15:05 Rocuronium Hasty (Zemuron) Confirm Administered Dose 50 mg .ROUTE .STK-MED ONE Stop: 11/25/17 15:07 Sodium Chloride (Saline Flush) 10 ml FLUSH ASDIRECTED PRN PRN Reason: Keep Vein Open - Exam GI/Abdominal Exam: Soft, Non-Tender - Problem List & Annotations (1) Acute appendicitis with localized peritonitis SNOMED Code(s): 259463752 Code(s): K35.3 - ACUTE APPENDICITIS WITH LOCALIZED PERITONITIS Status: Acute Priority: High Current Visit: Yes - Problem List Review Problem List Initiated/Reviewed/Updated: Yes - My Orders Last 24 Hours: Medication Orders Albuterol (Proventil Hfa) 0 gm INH Q4H PRN PRN Reason: Shortness of Breath Hydromorphone HCl (Dilaudid) 0.5 mg IVPUSH Q1H PRN PRN Reason: Pain (severe 7-10) Last Admin: 12/05/17 11:18 Dose: 0.5 mg Admin: 12/04/17 22:06 Dose: 0.5 mg Admin: 12/04/17 10:06 Dose: 0.5 mg Admin: 12/03/17 17:19 Dose: 0.5 mg Admin: 12/03/17 12:53 Dose: 0.5 mg Admin: 12/03/17 09:51 Dose: 0.5 mg Admin: 12/01/17 17:45 Dose: 0.5 mg Admin: 11/30/17 16:15 Dose: 0.5 mg Piperacillin Sod/Tazobactam (Sod 4.5 gm/ Sodium Chloride) 100 mls @ 25 mls/hr IV Q8H [facility] Last Admin: 12/06/17 08:19 Dose: 25 mls/hr Infusion: 12/06/17 04:19 Dose: 25 mls/hr Admin: 12/06/17 00:19 Dose: 25 mls/hr Infusion: 12/05/17 21:14 Dose: 25 mls/hr Admin: 12/05/17 17:14 Dose: 25 mls/hr Infusion: 12/05/17 12:59 Dose: 25 mls/hr Admin: 12/05/17 08:59 Dose: 25 mls/hr Infusion: 12/05/17 04:13 Dose: 25 mls/hr Admin: 12/05/17 00:13 Dose: 25 mls/hr Infusion: 12/04/17 20:35 Dose: 25 mls/hr Admin: 12/04/17 16:35 Dose: 25 mls/hr Infusion: 12/04/17 14:06 Dose: 25 mls/hr Infusion: 12/04/17 10:15 Dose: 25 mls/hr Admin: 12/04/17 10:05 Dose: 25 mls/hr Infusion: 12/04/17 04:49 Dose: 25 mls/hr Admin: 12/04/17 00:49 Dose: 25 mls/hr Infusion: 12/03/17 21:05 Dose: 25 mls/hr Admin: 12/03/17 17:05 Dose: 25 mls/hr Infusion: 12/03/17 13:54 Dose: 25 mls/hr Admin: 12/03/17 09:54 Dose: 25 mls/hr Infusion: 12/03/17 05:33 Dose: 25 mls/hr Admin: 12/03/17 01:33 Dose: 25 mls/hr Infusion: 12/02/17 20:48 Dose: 25 mls/hr Admin: 12/02/17 16:48 Dose: 25 mls/hr Infusion: 12/02/17 13:29 Dose: 25 mls/hr Admin: 12/02/17 09:29 Dose: 25 mls/hr Infusion: 12/02/17 05:38 Dose: 25 mls/hr Admin: 12/02/17 01:38 Dose: 25 mls/hr Infusion: 12/01/17 21:15 Dose: 25 mls/hr Admin: 12/01/17 17:15 Dose: 25 mls/hr Infusion: 12/01/17 13:13 Dose: 25 mls/hr Admin: 12/01/17 09:13 Dose: 25 mls/hr Infusion: 12/01/17 05:10 Dose: 25 mls/hr Admin: 12/01/17 01:10 Dose: 25 mls/hr Infusion: 11/30/17 20:17 Dose: 25 mls/hr Admin: 11/30/17 16:17 Dose: 25 mls/hr Infusion: 11/30/17 12:35 Dose: 25 mls/hr Admin: 11/30/17 08:35 Dose: 25 mls/hr Infusion: 11/30/17 04:42 Dose: 25 mls/hr Admin: 11/30/17 00:42 Dose: 25 mls/hr Infusion: 11/29/17 20:30 Dose: 25 mls/hr Admin: 11/29/17 16:30 Dose: 25 mls/hr Infusion: 11/29/17 12:30 Dose: 25 mls/hr Admin: 11/29/17 08:30 Dose: 25 mls/hr Infusion: 11/29/17 05:43 Dose: 25 mls/hr Admin: 11/29/17 01:43 Dose: 25 mls/hr Infusion: 11/28/17 20:14 Dose: 25 mls/hr Admin: 11/28/17 16:14 Dose: 25 mls/hr Infusion: 11/28/17 12:40 Dose: 0 mls/hr Admin: 11/28/17 08:39 Dose: 25 mls/hr Infusion: 11/28/17 04:28 Dose: 25 mls/hr Admin: 11/28/17 00:28 Dose: 25 mls/hr Infusion: 11/27/17 21:25 Dose: 25 mls/hr Admin: 11/27/17 17:25 Dose: 25 mls/hr Infusion: 11/27/17 12:42 Dose: 25 mls/hr Admin: 11/27/17 08:42 Dose: 25 mls/hr Infusion: 11/27/17 04:27 Dose: 25 mls/hr Admin: 11/27/17 00:27 Dose: 25 mls/hr Infusion: 11/26/17 20:41 Dose: 25 mls/hr Admin: 11/26/17 16:41 Dose: 25 mls/hr Infusion: 11/26/17 12:28 Dose: 25 mls/hr Admin: 11/26/17 08:28 Dose: 25 mls/hr Infusion: 11/26/17 05:02 Dose: 25 mls/hr Admin: 11/26/17 01:02 Dose: 25 mls/hr Admin: 11/25/17 20:17 Dose: Admin: 11/25/17 20:17 Dose: Admin: 11/25/17 20:17 Dose: Ketorolac Tromethamine (Toradol) 30 mg IVPUSH Q6H PRN PRN Reason: Pain Last Admin: 11/27/17 08:41 Dose: 30 mg Admin: 11/27/17 00:29 Dose: 30 mg Admin: 11/26/17 18:23 Dose: 30 mg Admin: 11/26/17 12:21 Dose: 30 mg Loperamide HCl (Imodium) 2 mg PO Q4H PRN PRN Reason: Diarrhea Losartan Potassium (Cozaar) 25 mg PO DAILY [facility] Last Admin: 12/06/17 08:17 Dose: 25 mg Admin: 12/05/17 08:52 Dose: 25 mg Admin: 12/04/17 10:01 Dose: 25 mg Admin: 12/03/17 09:53 Dose: 25 mg Admin: 12/02/17 09:27 Dose: 25 mg Admin: 12/01/17 09:08 Dose: 25 mg Admin: 11/30/17 08:32 Dose: 25 mg Admin: 11/29/17 08:28 Dose: 25 mg Admin: 11/28/17 08:37 Dose: 25 mg Ondansetron HCl (Zofran) 4 mg IVPUSH Q6H PRN PRN Reason: Nausea/Vomiting Oxycodone/Acetaminophen (Percocet 325-5 Mg) 2 tab PO Q4H PRN PRN Reason: Pain Last Admin: 12/06/17 08:17 Dose: 2 tab Admin: 12/05/17 22:15 Dose: 2 tab Admin: 12/05/17 15:52 Dose: 2 tab Admin: 12/05/17 08:53 Dose: 2 tab Admin: 12/05/17 04:19 Dose: 2 tab Admin: 12/05/17 00:12 Dose: 2 tab Admin: 12/04/17 20:27 Dose: 2 tab Admin: 12/04/17 14:05 Dose: 2 tab Admin: 12/04/17 07:02 Dose: 2 tab Admin: 12/04/17 00:52 Dose: 2 tab Admin: 12/03/17 19:30 Dose: 2 tab Admin: 12/03/17 15:17 Dose: 2 tab Admin: 12/03/17 10:56 Dose: 2 tab Admin: 12/02/17 22:17 Dose: 2 tab Admin: 12/02/17 17:50 Dose: 2 tab Admin: 12/02/17 13:49 Dose: 2 tab Admin: 12/02/17 09:27 Dose: 2 tab Admin: 12/02/17 03:46 Dose: 2 tab Admin: 12/01/17 21:59 Dose: 2 tab Admin: 12/01/17 14:27 Dose: 2 tab Admin: 12/01/17 09:09 Dose: 2 tab Admin: 11/30/17 23:36 Dose: 2 tab Admin: 11/30/17 14:17 Dose: 2 tab Admin: 11/30/17 08:32 Dose: 2 tab Admin: 11/30/17 00:51 Dose: 2 tab Admin: 11/29/17 20:27 Dose: 2 tab Admin: 11/29/17 15:39 Dose: 2 tab Admin: 11/29/17 10:36 Dose: 2 tab Potassium Chloride (Klor-Con 10) 10 meq PO BID [facility] Last Admin: 12/06/17 08:18 Dose: 10 meq Admin: 12/05/17 22:14 Dose: 10 meq Admin: 12/05/17 08:53 Dose: 10 meq Admin: 12/04/17 20:29 Dose: 10 meq Admin: 12/04/17 10:02 Dose: 10 meq Admin: 12/03/17 21:33 Dose: 10 meq Admin: 12/03/17 09:53 Dose: 10 meq Admin: 12/02/17 20:54 Dose: 10 meq Admin: 12/02/17 09:27 Dose: 10 meq Admin: 12/01/17 21:59 Dose: 10 meq Admin: 12/01/17 09:09 Dose: 10 meq Admin: 11/30/17 20:09 Dose: 10 meq Admin: 11/30/17 08:31 Dose: 10 meq Admin: 11/29/17 20:29 Dose: 10 meq Risperidone (Risperidal) 2 mg PO BEDTIME [facility] Last Admin: 12/05/17 22:15 Dose: 2 mg Admin: 12/04/17 20:29 Dose: 2 mg Admin: 12/03/17 21:33 Dose: 2 mg Admin: 12/02/17 20:54 Dose: 2 mg Admin: 12/01/17 21:59 Dose: 2 mg Admin: 11/30/17 20:09 Dose: 2 mg Admin: 11/29/17 20:29 Dose: 2 mg Admin: 11/28/17 20:30 Dose: 2 mg Saccharomyces Boulardii (Florastor) 250 mg PO DAILY [facility] Last Admin: 12/06/17 08:17 Dose: 250 mg Admin: 12/05/17 08:47 Dose: 250 mg Admin: 12/04/17 10:02 Dose: 250 mg Admin: 12/03/17 09:53 Dose: 250 mg Admin: 12/02/17 09:27 Dose: 250 mg Admin: 12/01/17 09:09 Dose: 250 mg Admin: 11/30/17 08:31 Dose: 250 mg Admin: 11/29/17 08:29 Dose: 250 mg Admin: 11/28/17 08:36 Dose: 250 mg Admin: 11/27/17 17:25 Dose: 250 mg Sodium Chloride (Saline Flush) 10 ml FLUSH ASDIRECTED PRN PRN Reason: Keep Vein Open Last Admin: 11/25/17 14:38 Dose: 10 ml Timolol Maleate (Timoptic 0.5% Ophth Soln) 0 ml EYEBOTH DAILY [facility] Last Admin: 12/06/17 08:18 Dose: 1 drop Admin: 12/05/17 08:55 Dose: 1 drop Admin: 12/04/17 10:03 Dose: 1 drop Admin: 12/03/17 09:55 Dose: 1 drop Admin: 12/02/17 09:28 Dose: 1 drop Admin: 12/01/17 09:09 Dose: 1 drop Admin: 11/30/17 08:34 Dose: 1 drop Admin: 11/29/17 08:29 Dose: 1 drop Admin: 11/28/17 08:37 Dose: 1 drop Zolpidem Tartrate (Ambien) 5 mg PO BEDTIME PRN PRN Reason: Insomnia - Assessment Assessment (Free Text/Narrative):: Doing well. - Plan Plan (Free Text/Narrative):: Discharge tomorrow. CBC BMP tomorrow.
[2017-12-06] MEDS: risperiDONE 1 MG Tab PO SCH (21:27)
[2017-12-07] MEDS: Piperacillin/Tazobactam 4.5 GM in Sodium Chloride 0.9% 100 ML IV SCH ×2 (01:54→09:25)
--- NOTE | 2017-12-07 08:48 | PCM.SURGPN ---
- General Info Date of Service: 12/07/17 Functional Status: Reports: Pain Controlled, Tolerating Diet, Ambulating, Urinating - Patient Data Vitals - Most Recent: Last Vital Signs Temp 36.7 C 12/07/17 06:41 Pulse 87 12/07/17 06:41 Resp 1 L 12/07/17 06:41 BP 108/77 12/07/17 06:41 Pulse Ox 97 12/07/17 06:41 Weight - Most Recent: 86.137 kg I&O - Last 24 Hours: Intake & Output 12/06/17 12/07/17 12/07/17 22:59 06:59 14:59 Intake Total 340 700 Output Total 1152 1025 Balance -812 -325 Lab Results Last 24 Hrs: Laboratory Results - last 24 hr 12/06/17 12/07/17 12/07/17 Range/Units 11:50 06:00 06:00 WBC 11.35 H (4.23-9.07) K/mm3 RBC 4.55 L (4.63-6.08) M/mm3 Hgb 13.5 L (13.7-17.5) gm/L Hct 41.1 (40.1-51.0) % MCV 90.3 (79.0-92.2) fl MCH 29.7 (25.7-32.2) pg MCHC 32.8 (32.2-35.5) g/dl RDW Std Deviation 42.7 (35.1-43.9) fL Plt Count 597 H (163-337) K/mm3 MPV 9.0 L (9.4-12.3) fl Neut % (Auto) 58.4 (34.0-67.9) % Lymph % (Auto) 27.9 (21.8-53.1) % Daggett % (Auto) 10.2 (5.3-12.2) % Eos % (Auto) 1.7 (0.8-7.0) Baso % (Auto) 0.4 (0.1-1.2) % Neut # (Auto) 6.62 H (1.78-5.38) K/mm3 Lymph # (Auto) 3.17 (1.32-3.57) K/mm3 Daggett # (Auto) 1.16 H (0.30-0.82) K/mm3 Eos # (Auto) 0.19 (0.04-0.54) K/mm3 Baso # (Auto) 0.05 (0.01-0.08) K/mm3 Manual Slide Review Abnormal smear Sodium 138 (136-145) mEq/L Potassium 4.3 (3.5-5.1) mEq/L Chloride 102 (98-107) mEq/L Carbon Dioxide 26 (21-32) mEq/L Anion Gap 14.3 (5-15) BUN 17 (7-18) mg/dL Creatinine 1.6 H (0.7-1.3) mg/dL Est Cr Clr Drug Dosing 62.79 mL/min Estimated GFR (MDRD) 46 (>60) mL/min BUN/Creatinine Ratio 10.6 L (14-18) Glucose 127 H (74-106) mg/dL POC Glucose 153 H (70-105) mg/dL Calcium 9.3 (8.5-10.1) mg/dL 12/07/17 Range/Units 06:46 WBC (4.23-9.07) K/mm3 RBC (4.63-6.08) M/mm3 Hgb (13.7-17.5) gm/L Hct (40.1-51.0) % MCV (79.0-92.2) fl MCH (25.7-32.2) pg MCHC (32.2-35.5) g/dl RDW Std Deviation (35.1-43.9) fL Plt Count (163-337) K/mm3 MPV (9.4-12.3) fl Neut % (Auto) (34.0-67.9) % Lymph % (Auto) (21.8-53.1) % Daggett % (Auto) (5.3-12.2) % Eos % (Auto) (0.8-7.0) Baso % (Auto) (0.1-1.2) % Neut # (Auto) (1.78-5.38) K/mm3 Lymph # (Auto) (1.32-3.57) K/mm3 Daggett # (Auto) (0.30-0.82) K/mm3 Eos # (Auto) (0.04-0.54) K/mm3 Baso # (Auto) (0.01-0.08) K/mm3 Manual Slide Review Sodium (136-145) mEq/L Potassium (3.5-5.1) mEq/L Chloride (98-107) mEq/L Carbon Dioxide (21-32) mEq/L Anion Gap (5-15) BUN (7-18) mg/dL Creatinine (0.7-1.3) mg/dL Est Cr Clr Drug Dosing mL/min Estimated GFR (MDRD) (>60) mL/min BUN/Creatinine Ratio (14-18) Glucose (74-106) mg/dL POC Glucose 128 H (70-105) mg/dL Calcium (8.5-10.1) mg/dL Med Orders - Current: Current Medications Albuterol (Proventil Hfa) 0 gm INH Q4H PRN PRN Reason: Shortness of Breath Hydromorphone HCl (Dilaudid) 0.5 mg IVPUSH Q1H PRN PRN Reason: Pain (severe 7-10) Last Admin: 12/05/17 11:18 Dose: 0.5 mg Piperacillin Sod/Tazobactam (Sod 4.5 gm/ Sodium Chloride) 100 mls @ 25 mls/hr IV Q8H [facility] Last Admin: 12/07/17 01:54 Dose: 25 mls/hr Ketorolac Tromethamine (Toradol) 30 mg IVPUSH Q6H PRN PRN Reason: Pain Last Admin: 11/27/17 08:41 Dose: 30 mg Loperamide HCl (Imodium) 2 mg PO Q4H PRN PRN Reason: Diarrhea Losartan Potassium (Cozaar) 25 mg PO DAILY [facility] Last Admin: 12/06/17 08:17 Dose: 25 mg Ondansetron HCl (Zofran) 4 mg IVPUSH Q6H PRN PRN Reason: Nausea/Vomiting Oxycodone/Acetaminophen (Percocet 325-5 Mg) 2 tab PO Q4H PRN PRN Reason: Pain Last Admin: 12/06/17 21:26 Dose: 2 tab Potassium Chloride (Klor-Con 10) 10 meq PO BID [facility] Last Admin: 12/06/17 21:27 Dose: 10 meq Risperidone (Risperidal) 2 mg PO BEDTIME [facility] Last Admin: 12/06/17 21:27 Dose: 2 mg Saccharomyces Boulardii (Florastor) 250 mg PO DAILY [facility] Last Admin: 12/06/17 08:17 Dose: 250 mg Sodium Chloride (Saline Flush) 10 ml FLUSH ASDIRECTED PRN PRN Reason: Keep Vein Open Last Admin: 11/25/17 14:38 Dose: 10 ml Timolol Maleate (Timoptic 0.5% Ophth Soln) 0 ml EYEBOTH DAILY [facility] Last Admin: 12/06/17 08:18 Dose: 1 drop Zolpidem Tartrate (Ambien) 5 mg PO BEDTIME PRN PRN Reason: Insomnia Discontinued Medications Bupivacaine HCl/Epinephrine Bitart (Marcaine 0.5%/Epinephrine 1:200,000) Confirm Administered Dose 50 ml .ROUTE .STK-MED ONE Stop: 11/25/17 14:38 Last Admin: 11/25/17 15:42 Dose: 9 ml Diatrizoate Meglum/Diatrizoate Sod (Gastrografin 37%) 120 ml PO ONETIME ONE Stop: 11/25/17 13:32 Last Admin: 11/25/17 13:38 Dose: 90 ml Diphenhydramine HCl (Benadryl) 25 mg IVPUSH ONETIME ONE Stop: 11/25/17 14:16 Last Admin: 11/25/17 14:38 Dose: 25 mg Diphenhydramine HCl (Benadryl) 25 mg IVPUSH Q6H PRN PRN Reason: Pruritis Fentanyl (Sublimaze) 50 mcg IVPUSH Q5M PRN PRN Reason: Pain Fentanyl (Sublimaze) Confirm Administered Dose 250 mcg .ROUTE .STK-MED ONE Stop: 11/25/17 15:05 Glycopyrrolate () Confirm Administered Dose 1 mg .ROUTE .STK-MED ONE Stop: 11/25/17 16:36 Hydromorphone HCl (Dilaudid) 0.5 mg IVPUSH ONETIME ONE Stop: 11/25/17 12:21 Last Admin: 11/25/17 12:47 Dose: 0.5 mg Hydromorphone HCl (Dilaudid) 0.5 mg IVPUSH Q1H PRN PRN Reason: Pain (severe 7-10) Last Admin: 11/27/17 00:28 Dose: 0.5 mg Hydromorphone HCl (Dilaudid) 0.5 mg IVPUSH Q15M PRN PRN Reason: Pain (severe 7-10) Hydromorphone HCl (Dilaudid) Confirm Administered Dose 1 mg .ROUTE .STK-MED ONE Stop: 11/25/17 16:02 Hydromorphone HCl (Dilaudid) 0.5 mg IVPUSH Q1H PRN PRN Reason: Pain (severe 7-10) Last Admin: 11/30/17 12:06 Dose: 0.5 mg Dextrose/Sodium Chloride (Dextrose 5%-Normal Saline) 1,000 mls @ 500 [facility]ls[facility] Last Admin: 11/25/17 11:57 Dose: 500 mls/hr Levofloxacin/Dextrose 750 mg/ (Premix) 150 mls @ 100 mls/hr IV ONETIME ONE Stop: 11/25/17 13:55 Last Admin: 11/25/17 12:53 Dose: 100 mls/hr Cefoxitin Sodium 2 gm/ Premix 50 mls @ 100 mls/hr IV ONETIME ONE Stop: 11/25/17 14:37 Last Admin: 11/25/17 14:59 Dose: Not Given Cefoxitin Sodium 1 gm/ Premix 50 mls @ 100 mls/hr IV ONETIME ONE Stop: 11/25/17 15:01 Last Admin: 11/25/17 15:00 Dose: 100 mls/hr Sodium Chloride (Normal Saline) 1,000 mls @ 999 mls/hr IV [facility] Last Admin: 11/25/17 14:47 Dose: 999 mls/hr Sodium Chloride (Normal Saline) 1,000 mls @ 125 mls/hr IV [facility] Last Admin: 11/27/17 00:26 Dose: 125 mls/hr Piperacillin Sod/Tazobactam (Sod 4.5 gm/ Sodium Chloride) 100 mls @ 200 mls/hr IV ONETIME ONE Stop: 11/25/17 17:29 Last Admin: 11/25/17 19:05 Dose: 200 mls/hr Lidocaine HCl (Xylocaine-Mpf 1%) Confirm Administered Dose 4 mls @ as directed .ROUTE .STK-MED ONE Stop: 11/25/17 15:07 Lactated Ringer's (Ringers, Lactated) Confirm Administered Dose 1,000 mls @ as directed .ROUTE .STK-MED ONE Stop: 11/25/17 16:04 Sodium Chloride (Normal Saline) 500 mls @ 999 mls/hr IV ONETIME ONE Stop: 11/26/17 20:59 Last Admin: 11/26/17 21:32 Dose: 999 mls/hr Ketorolac Tromethamine (Toradol) 30 mg IVPUSH ONETIME [facility] Last Admin: 11/25/17 11:55 Dose: 30 mg Lidocaine/Epinephrine (Xylocaine 1% With Epinephrine 1:100,000) Confirm Administered Dose 20 ml .ROUTE .STK-MED ONE Stop: 11/25/17 14:37 Last Admin: 11/25/17 15:42 Dose: 9 ml Metoclopramide HCl (Reglan) 7.5 mg IVPUSH ONETIME ONE Stop: 11/25/17 11:20 Last Admin: 11/25/17 11:53 Dose: 7.5 mg Midazolam HCl (Versed 1 Mg/Ml) Confirm Administered Dose 2 mg .ROUTE .STK-MED ONE Stop: 11/25/17 15:05 Neostigmine Methylsulfate (Neostigmine) Confirm Administered Dose 5 mg .ROUTE .STK-MED ONE Stop: 11/25/17 16:36 Non-Formulary Medication (Potassium Citrate [Potassium Citrate]) 10 meq PO BID [facility] Ondansetron HCl (Zofran) 4 mg IVPUSH ONETIME ONE Stop: 11/25/17 14:16 Last Admin: 11/25/17 14:38 Dose: 4 mg Ondansetron HCl (Zofran) 4 mg IVPUSH ONETIME PRN PRN Reason: Nausea/Vomiting Ondansetron HCl (Zofran) Confirm Administered Dose 4 mg .ROUTE .STK-MED ONE Stop: 11/25/17 15:07 Oxycodone/Acetaminophen (Percocet 325-5 Mg) 1 tab PO Q4H PRN PRN Reason: Pain Last Admin: 11/29/17 05:55 Dose: 1 tab Potassium Chloride (Potassium Chloride Solution) 20 meq PO BID [facility] Last Admin: 11/29/17 10:36 Dose: 20 meq Potassium Chloride (Klor-Con M20) 40 meq PO ONETIME ONE Stop: 12/03/17 09:36 Last Admin: 12/03/17 10:07 Dose: 40 meq Propofol (Diprivan 20 Ml) Confirm Administered Dose 200 mg .ROUTE .STK-MED ONE Stop: 11/25/17 15:05 Rocuronium Challenge (Zemuron) Confirm Administered Dose 50 mg .ROUTE .STK-MED ONE Stop: 11/25/17 15:07 Sodium Chloride (Saline Flush) 10 ml FLUSH ASDIRECTED PRN PRN Reason: Keep Vein Open - Exam Wound/Incisions: Healing Well, Dressing Dry and Intact GI/Abdominal Exam: Soft, Non-Tender - Problem List & Annotations (1) Acute appendicitis with localized peritonitis SNOMED Code(s): 828881619 Code(s): K35.3 - ACUTE APPENDICITIS WITH LOCALIZED PERITONITIS Status: Acute Priority: High Current Visit: Yes - Problem List Review Problem List Initiated/Reviewed/Updated: Yes - My Orders Last 24 Hours: Active Orders 24 hr Category Date Time Status Ready for Discharge [RC] PER UNIT ROUTINE Care 12/07/17 08:47 Ordered Medication Orders Albuterol (Proventil Hfa) 0 gm INH Q4H PRN PRN Reason: Shortness of Breath Hydromorphone HCl (Dilaudid) 0.5 mg IVPUSH Q1H PRN PRN Reason: Pain (severe 7-10) Last Admin: 12/05/17 11:18 Dose: 0.5 mg Admin: 12/04/17 22:06 Dose: 0.5 mg Admin: 12/04/17 10:06 Dose: 0.5 mg Admin: 12/03/17 17:19 Dose: 0.5 mg Admin: 12/03/17 12:53 Dose: 0.5 mg Admin: 12/03/17 09:51 Dose: 0.5 mg Admin: 12/01/17 17:45 Dose: 0.5 mg Admin: 11/30/17 16:15 Dose: 0.5 mg Piperacillin Sod/Tazobactam (Sod 4.5 gm/ Sodium Chloride) 100 mls @ 25 mls/hr IV Q8H [facility] Last Admin: 12/07/17 01:54 Dose: 25 mls/hr Infusion: 12/06/17 22:06 Dose: 25 mls/hr Admin: 12/06/17 18:06 Dose: 25 mls/hr Infusion: 12/06/17 12:19 Dose: 25 mls/hr Admin: 12/06/17 08:19 Dose: 25 mls/hr Infusion: 12/06/17 04:19 Dose: 25 mls/hr Admin: 12/06/17 00:19 Dose: 25 mls/hr Infusion: 12/05/17 21:14 Dose: 25 mls/hr Admin: 12/05/17 17:14 Dose: 25 mls/hr Infusion: 12/05/17 12:59 Dose: 25 mls/hr Admin: 12/05/17 08:59 Dose: 25 mls/hr Infusion: 12/05/17 04:13 Dose: 25 mls/hr Admin: 12/05/17 00:13 Dose: 25 mls/hr Infusion: 12/04/17 20:35 Dose: 25 mls/hr Admin: 12/04/17 16:35 Dose: 25 mls/hr Infusion: 12/04/17 14:06 Dose: 25 mls/hr Infusion: 12/04/17 10:15 Dose: 25 mls/hr Admin: 12/04/17 10:05 Dose: 25 mls/hr Infusion: 12/04/17 04:49 Dose: 25 mls/hr Admin: 12/04/17 00:49 Dose: 25 mls/hr Infusion: 12/03/17 21:05 Dose: 25 mls/hr Admin: 12/03/17 17:05 Dose: 25 mls/hr Infusion: 12/03/17 13:54 Dose: 25 mls/hr Admin: 12/03/17 09:54 Dose: 25 mls/hr Infusion: 12/03/17 05:33 Dose: 25 mls/hr Admin: 12/03/17 01:33 Dose: 25 mls/hr Infusion: 12/02/17 20:48 Dose: 25 mls/hr Admin: 12/02/17 16:48 Dose: 25 mls/hr Infusion: 12/02/17 13:29 Dose: 25 mls/hr Admin: 12/02/17 09:29 Dose: 25 mls/hr Infusion: 12/02/17 05:38 Dose: 25 mls/hr Admin: 12/02/17 01:38 Dose: 25 mls/hr Infusion: 12/01/17 21:15 Dose: 25 mls/hr Admin: 12/01/17 17:15 Dose: 25 mls/hr Infusion: 12/01/17 13:13 Dose: 25 mls/hr Admin: 12/01/17 09:13 Dose: 25 mls/hr Infusion: 12/01/17 05:10 Dose: 25 mls/hr Admin: 12/01/17 01:10 Dose: 25 mls/hr Infusion: 11/30/17 20:17 Dose: 25 mls/hr Admin: 11/30/17 16:17 Dose: 25 mls/hr Infusion: 11/30/17 12:35 Dose: 25 mls/hr Admin: 11/30/17 08:35 Dose: 25 mls/hr Infusion: 11/30/17 04:42 Dose: 25 mls/hr Admin: 11/30/17 00:42 Dose: 25 mls/hr Infusion: 11/29/17 20:30 Dose: 25 mls/hr Admin: 11/29/17 16:30 Dose: 25 mls/hr Infusion: 11/29/17 12:30 Dose: 25 mls/hr Admin: 11/29/17 08:30 Dose: 25 mls/hr Infusion: 11/29/17 05:43 Dose: 25 mls/hr Admin: 11/29/17 01:43 Dose: 25 mls/hr Infusion: 11/28/17 20:14 Dose: 25 mls/hr Admin: 11/28/17 16:14 Dose: 25 mls/hr Infusion: 11/28/17 12:40 Dose: 0 mls/hr Admin: 11/28/17 08:39 Dose: 25 mls/hr Infusion: 11/28/17 04:28 Dose: 25 mls/hr Admin: 11/28/17 00:28 Dose: 25 mls/hr Infusion: 11/27/17 21:25 Dose: 25 mls/hr Admin: 11/27/17 17:25 Dose: 25 mls/hr Infusion: 11/27/17 12:42 Dose: 25 mls/hr Admin: 11/27/17 08:42 Dose: 25 mls/hr Infusion: 11/27/17 04:27 Dose: 25 mls/hr Admin: 11/27/17 00:27 Dose: 25 mls/hr Infusion: 11/26/17 20:41 Dose: 25 mls/hr Admin: 11/26/17 16:41 Dose: 25 mls/hr Infusion: 11/26/17 12:28 Dose: 25 mls/hr Admin: 11/26/17 08:28 Dose: 25 mls/hr Infusion: 11/26/17 05:02 Dose: 25 mls/hr Admin: 11/26/17 01:02 Dose: 25 mls/hr Admin: 11/25/17 20:17 Dose: Admin: 11/25/17 20:17 Dose: Admin: 11/25/17 20:17 Dose: Ketorolac Tromethamine (Toradol) 30 mg IVPUSH Q6H PRN PRN Reason: Pain Last Admin: 11/27/17 08:41 Dose: 30 mg Admin: 11/27/17 00:29 Dose: 30 mg Admin: 11/26/17 18:23 Dose: 30 mg Admin: 11/26/17 12:21 Dose: 30 mg Loperamide HCl (Imodium) 2 mg PO Q4H PRN PRN Reason: Diarrhea Losartan Potassium (Cozaar) 25 mg PO DAILY [facility] Last Admin: 12/06/17 08:17 Dose: 25 mg Admin: 12/05/17 08:52 Dose: 25 mg Admin: 12/04/17 10:01 Dose: 25 mg Admin: 12/03/17 09:53 Dose: 25 mg Admin: 12/02/17 09:27 Dose: 25 mg Admin: 12/01/17 09:08 Dose: 25 mg Admin: 11/30/17 08:32 Dose: 25 mg Admin: 11/29/17 08:28 Dose: 25 mg Admin: 11/28/17 08:37 Dose: 25 mg Ondansetron HCl (Zofran) 4 mg IVPUSH Q6H PRN PRN Reason: Nausea/Vomiting Oxycodone/Acetaminophen (Percocet 325-5 Mg) 2 tab PO Q4H PRN PRN Reason: Pain Last Admin: 12/06/17 21:26 Dose: 2 tab Admin: 12/06/17 18:10 Dose: 2 tab Admin: 12/06/17 08:17 Dose: 2 tab Admin: 12/05/17 22:15 Dose: 2 tab Admin: 12/05/17 15:52 Dose: 2 tab Admin: 12/05/17 08:53 Dose: 2 tab Admin: 12/05/17 04:19 Dose: 2 tab Admin: 12/05/17 00:12 Dose: 2 tab Admin: 12/04/17 20:27 Dose: 2 tab Admin: 12/04/17 14:05 Dose: 2 tab Admin: 12/04/17 07:02 Dose: 2 tab Admin: 12/04/17 00:52 Dose: 2 tab Admin: 12/03/17 19:30 Dose: 2 tab Admin: 12/03/17 15:17 Dose: 2 tab Admin: 12/03/17 10:56 Dose: 2 tab Admin: 12/02/17 22:17 Dose: 2 tab Admin: 12/02/17 17:50 Dose: 2 tab Admin: 12/02/17 13:49 Dose: 2 tab Admin: 12/02/17 09:27 Dose: 2 tab Admin: 12/02/17 03:46 Dose: 2 tab Admin: 12/01/17 21:59 Dose: 2 tab Admin: 12/01/17 14:27 Dose: 2 tab Admin: 12/01/17 09:09 Dose: 2 tab Admin: 11/30/17 23:36 Dose: 2 tab Admin: 11/30/17 14:17 Dose: 2 tab Admin: 11/30/17 08:32 Dose: 2 tab Admin: 11/30/17 00:51 Dose: 2 tab Admin: 11/29/17 20:27 Dose: 2 tab Admin: 11/29/17 15:39 Dose: 2 tab Admin: 11/29/17 10:36 Dose: 2 tab Potassium Chloride (Klor-Con 10) 10 meq PO BID [facility] Last Admin: 12/06/17 21:27 Dose: 10 meq Admin: 12/06/17 08:18 Dose: 10 meq Admin: 12/05/17 22:14 Dose: 10 meq Admin: 12/05/17 08:53 Dose: 10 meq Admin: 12/04/17 20:29 Dose: 10 meq Admin: 12/04/17 10:02 Dose: 10 meq Admin: 12/03/17 21:33 Dose: 10 meq Admin: 12/03/17 09:53 Dose: 10 meq Admin: 12/02/17 20:54 Dose: 10 meq Admin: 12/02/17 09:27 Dose: 10 meq Admin: 12/01/17 21:59 Dose: 10 meq Admin: 12/01/17 09:09 Dose: 10 meq Admin: 11/30/17 20:09 Dose: 10 meq Admin: 11/30/17 08:31 Dose: 10 meq Admin: 11/29/17 20:29 Dose: 10 meq Risperidone (Risperidal) 2 mg PO BEDTIME [facility] Last Admin: 12/06/17 21:27 Dose: 2 mg Admin: 12/05/17 22:15 Dose: 2 mg Admin: 12/04/17 20:29 Dose: 2 mg Admin: 12/03/17 21:33 Dose: 2 mg Admin: 12/02/17 20:54 Dose: 2 mg Admin: 12/01/17 21:59 Dose: 2 mg Admin: 11/30/17 20:09 Dose: 2 mg Admin: 11/29/17 20:29 Dose: 2 mg Admin: 11/28/17 20:30 Dose: 2 mg Saccharomyces Boulardii (Florastor) 250 mg PO DAILY [facility] Last Admin: 12/06/17 08:17 Dose: 250 mg Admin: 12/05/17 08:47 Dose: 250 mg Admin: 12/04/17 10:02 Dose: 250 mg Admin: 12/03/17 09:53 Dose: 250 mg Admin: 12/02/17 09:27 Dose: 250 mg Admin: 12/01/17 09:09 Dose: 250 mg Admin: 11/30/17 08:31 Dose: 250 mg Admin: 11/29/17 08:29 Dose: 250 mg Admin: 11/28/17 08:36 Dose: 250 mg Admin: 11/27/17 17:25 Dose: 250 mg Sodium Chloride (Saline Flush) 10 ml FLUSH ASDIRECTED PRN PRN Reason: Keep Vein Open Last Admin: 11/25/17 14:38 Dose: 10 ml Timolol Maleate (Timoptic 0.5% Ophth Soln) 0 ml EYEBOTH DAILY [facility] Last Admin: 12/06/17 08:18 Dose: 1 drop Admin: 12/05/17 08:55 Dose: 1 drop Admin: 12/04/17 10:03 Dose: 1 drop Admin: 12/03/17 09:55 Dose: 1 drop Admin: 12/02/17 09:28 Dose: 1 drop Admin: 12/01/17 09:09 Dose: 1 drop Admin: 11/30/17 08:34 Dose: 1 drop Admin: 11/29/17 08:29 Dose: 1 drop Admin: 11/28/17 08:37 Dose: 1 drop Zolpidem Tartrate (Ambien) 5 mg PO BEDTIME PRN PRN Reason: Insomnia - Assessment Assessment (Free Text/Narrative):: White count down to 11. Potassium normal. Ready for discharge. - Plan Plan (Free Text/Narrative):: Discharge today. Instructions given to the patient.
--- NOTE | 2017-12-07 08:49 | PCM.DCSUM1 ---
Discharge Summary - Discharge Data Discharge Date: 12/07/17 Discharge Disposition: Home, Self-Care 01 Condition: Good - Discharge Diagnosis/Problem(s) (1) Acute appendicitis with localized peritonitis SNOMED Code(s): 962099809 ICD Code: K35.3 - ACUTE APPENDICITIS WITH LOCALIZED PERITONITIS Status: Acute Priority: High Current Visit: Yes - Patient Summary/Data Operative Procedure(s) Performed: Laparoscopic appendectomy Complications: None Hospital Course: Progressive improvement on IV antibiotics. - Patient Instructions Diet: Usual Diet as Tolerated Activity: As Tolerated, Rest and Relax Today Driving: May Drive Today Showering/Bathing: May Shower Wound/Incision Care: Keep Operative Site/Wound Site Clean and Dry Notify Provider of: Fever, Increased Pain, Nausea and/or Vomiting - Discharge Plan Home Medications: Home Meds Zolpidem [Ambien] 10 mg PO BEDTIME 02/20/14 [History] tiZANidine [Zanaflex] 4 mg PO BEDTIME PRN 02/20/14 [History] Adalimumab [Humira] 40 mg PO Q14D 11/11/15 [History] Linagliptin [Tradjenta] 5 mg PO DAILY 11/11/15 [History] Losartan [Cozaar] 25 mg PO DAILY 11/11/15 [History] Potassium Citrate 10 meq PO BID 11/11/15 [History] risperiDONE 2 mg PO BEDTIME 11/11/15 [History] Cholecalciferol (Vitamin D3) [Vitamin D3] 5,000 unit PO DAILY 08/06/17 [History] Citalopram Hydrobromide [Celexa] 40 mg PO DAILY 08/06/17 [History] Cyanocobalamin (Vitamin B-12) [Vitamin B-12] 1,000 mcg PO DAILY 08/06/17 [ History] Gabapentin [Neurontin] 1,800 mg PO BEDTIME 08/06/17 [History] atorvaSTATin [Lipitor] 40 mg PO BEDTIME 08/06/17 [History] buPROPion HCl [Wellbutrin Xl] 300 mg PO DAILY 08/06/17 [History] Albuterol [Proair HFA] 2 puff IH Q4H PRN 11/26/17 [History] Loperamide HCl [Imodium A-D] 2 mg PO ASDIRECTED PRN 11/26/17 [History] Loratadine/Pseudoephedrine [Claritin-D 12 Hour] 1 tab PO BID PRN 11/26/17 [ History] Mometasone Furoate [Nasonex] 2 sprays NASBOTH DAILY 11/26/17 [History] Multivitamin [Men's Multi-Vitamin] 1 tab PO DAILY 11/26/17 [History] Timolol Maleate [Timoptic 0.5% Ophth Soln] 1 drop EYEBOTH DAILY 11/26/17 [ History] Forms: ED Department Discharge Referrals: Ryan Romero MD [Primary Care Provider] - Uche Swenson MD [Physician] - 12/20/17 (Postoperative follow-up) - Discharge Summary/Plan Comment DC Time >30 min.: No Discharge Summary/Plan Comment: Discharge instructions given orally and verbally. Patient was asked to call me between now clinic visit if he had any concerns. - Patient Data Vitals - Most Recent: Last Vital Signs Temp 36.7 C 12/07/17 06:41 Pulse 87 12/07/17 06:41 Resp 1 L 12/07/17 06:41 BP 108/77 12/07/17 06:41 Pulse Ox 97 12/07/17 06:41 Weight - Most Recent: 86.137 kg I&O - Last 24 hours: Intake & Output 12/06/17 12/07/17 12/07/17 22:59 06:59 14:59 Intake Total 340 700 Output Total 1152 1025 Balance -812 -325 Lab Results - Last 24 hrs: Laboratory Results - last 24 hr 12/06/17 12/07/17 12/07/17 Range/Units 11:50 06:00 06:00 WBC 11.35 H (4.23-9.07) K/mm3 RBC 4.55 L (4.63-6.08) M/mm3 Hgb 13.5 L (13.7-17.5) gm/L Hct 41.1 (40.1-51.0) % MCV 90.3 (79.0-92.2) fl MCH 29.7 (25.7-32.2) pg MCHC 32.8 (32.2-35.5) g/dl RDW Std Deviation 42.7 (35.1-43.9) fL Plt Count 597 H (163-337) K/mm3 MPV 9.0 L (9.4-12.3) fl Neut % (Auto) 58.4 (34.0-67.9) % Lymph % (Auto) 27.9 (21.8-53.1) % Parke % (Auto) 10.2 (5.3-12.2) % Eos % (Auto) 1.7 (0.8-7.0) Baso % (Auto) 0.4 (0.1-1.2) % Neut # (Auto) 6.62 H (1.78-5.38) K/mm3 Lymph # (Auto) 3.17 (1.32-3.57) K/mm3 Parke # (Auto) 1.16 H (0.30-0.82) K/mm3 Eos # (Auto) 0.19 (0.04-0.54) K/mm3 Baso # (Auto) 0.05 (0.01-0.08) K/mm3 Manual Slide Review Abnormal smear Sodium 138 (136-145) mEq/L Potassium 4.3 (3.5-5.1) mEq/L Chloride 102 (98-107) mEq/L Carbon Dioxide 26 (21-32) mEq/L Anion Gap 14.3 (5-15) BUN 17 (7-18) mg/dL Creatinine 1.6 H (0.7-1.3) mg/dL Est Cr Clr Drug Dosing 62.79 mL/min Estimated GFR (MDRD) 46 (>60) mL/min BUN/Creatinine Ratio 10.6 L (14-18) Glucose 127 H (74-106) mg/dL POC Glucose 153 H (70-105) mg/dL Calcium 9.3 (8.5-10.1) mg/dL 12/07/17 Range/Units 06:46 WBC (4.23-9.07) K/mm3 RBC (4.63-6.08) M/mm3 Hgb (13.7-17.5) gm/L Hct (40.1-51.0) % MCV (79.0-92.2) fl MCH (25.7-32.2) pg MCHC (32.2-35.5) g/dl RDW Std Deviation (35.1-43.9) fL Plt Count (163-337) K/mm3 MPV (9.4-12.3) fl Neut % (Auto) (34.0-67.9) % Lymph % (Auto) (21.8-53.1) % Parke % (Auto) (5.3-12.2) % Eos % (Auto) (0.8-7.0) Baso % (Auto) (0.1-1.2) % Neut # (Auto) (1.78-5.38) K/mm3 Lymph # (Auto) (1.32-3.57) K/mm3 Parke # (Auto) (0.30-0.82) K/mm3 Eos # (Auto) (0.04-0.54) K/mm3 Baso # (Auto) (0.01-0.08) K/mm3 Manual Slide Review Sodium (136-145) mEq/L Potassium (3.5-5.1) mEq/L Chloride (98-107) mEq/L Carbon Dioxide (21-32) mEq/L Anion Gap (5-15) BUN (7-18) mg/dL Creatinine (0.7-1.3) mg/dL Est Cr Clr Drug Dosing mL/min Estimated GFR (MDRD) (>60) mL/min BUN/Creatinine Ratio (14-18) Glucose (74-106) mg/dL POC Glucose 128 H (70-105) mg/dL Calcium (8.5-10.1) mg/dL Med Orders - Current: Current Medications Albuterol (Proventil Hfa) 0 gm INH Q4H PRN PRN Reason: Shortness of Breath Hydromorphone HCl (Dilaudid) 0.5 mg IVPUSH Q1H PRN PRN Reason: Pain (severe 7-10) Last Admin: 12/05/17 11:18 Dose: 0.5 mg Piperacillin Sod/Tazobactam (Sod 4.5 gm/ Sodium Chloride) 100 mls @ 25 mls/hr IV Q8H [facility] Last Admin: 12/07/17 01:54 Dose: 25 mls/hr Ketorolac Tromethamine (Toradol) 30 mg IVPUSH Q6H PRN PRN Reason: Pain Last Admin: 11/27/17 08:41 Dose: 30 mg Loperamide HCl (Imodium) 2 mg PO Q4H PRN PRN Reason: Diarrhea Losartan Potassium (Cozaar) 25 mg PO DAILY [facility] Last Admin: 12/06/17 08:17 Dose: 25 mg Ondansetron HCl (Zofran) 4 mg IVPUSH Q6H PRN PRN Reason: Nausea/Vomiting Oxycodone/Acetaminophen (Percocet 325-5 Mg) 2 tab PO Q4H PRN PRN Reason: Pain Last Admin: 12/06/17 21:26 Dose: 2 tab Potassium Chloride (Klor-Con 10) 10 meq PO BID [facility] Last Admin: 12/06/17 21:27 Dose: 10 meq Risperidone (Risperidal) 2 mg PO BEDTIME [facility] Last Admin: 12/06/17 21:27 Dose: 2 mg Saccharomyces Boulardii (Florastor) 250 mg PO DAILY [facility] Last Admin: 12/06/17 08:17 Dose: 250 mg Sodium Chloride (Saline Flush) 10 ml FLUSH ASDIRECTED PRN PRN Reason: Keep Vein Open Last Admin: 11/25/17 14:38 Dose: 10 ml Timolol Maleate (Timoptic 0.5% Ophth Soln) 0 ml EYEBOTH DAILY [facility] Last Admin: 12/06/17 08:18 Dose: 1 drop Zolpidem Tartrate (Ambien) 5 mg PO BEDTIME PRN PRN Reason: Insomnia Discontinued Medications Bupivacaine HCl/Epinephrine Bitart (Marcaine 0.5%/Epinephrine 1:200,000) Confirm Administered Dose 50 ml .ROUTE .STK-MED ONE Stop: 11/25/17 14:38 Last Admin: 11/25/17 15:42 Dose: 9 ml Diatrizoate Meglum/Diatrizoate Sod (Gastrografin 37%) 120 ml PO ONETIME ONE Stop: 11/25/17 13:32 Last Admin: 11/25/17 13:38 Dose: 90 ml Diphenhydramine HCl (Benadryl) 25 mg IVPUSH ONETIME ONE Stop: 11/25/17 14:16 Last Admin: 11/25/17 14:38 Dose: 25 mg Diphenhydramine HCl (Benadryl) 25 mg IVPUSH Q6H PRN PRN Reason: Pruritis Fentanyl (Sublimaze) 50 mcg IVPUSH Q5M PRN PRN Reason: Pain Fentanyl (Sublimaze) Confirm Administered Dose 250 mcg .ROUTE .STK-MED ONE Stop: 11/25/17 15:05 Glycopyrrolate () Confirm Administered Dose 1 mg .ROUTE .STK-MED ONE Stop: 11/25/17 16:36 Hydromorphone HCl (Dilaudid) 0.5 mg IVPUSH ONETIME ONE Stop: 11/25/17 12:21 Last Admin: 11/25/17 12:47 Dose: 0.5 mg Hydromorphone HCl (Dilaudid) 0.5 mg IVPUSH Q1H PRN PRN Reason: Pain (severe 7-10) Last Admin: 11/27/17 00:28 Dose: 0.5 mg Hydromorphone HCl (Dilaudid) 0.5 mg IVPUSH Q15M PRN PRN Reason: Pain (severe 7-10) Hydromorphone HCl (Dilaudid) Confirm Administered Dose 1 mg .ROUTE .STK-MED ONE Stop: 11/25/17 16:02 Hydromorphone HCl (Dilaudid) 0.5 mg IVPUSH Q1H PRN PRN Reason: Pain (severe 7-10) Last Admin: 11/30/17 12:06 Dose: 0.5 mg Dextrose/Sodium Chloride (Dextrose 5%-Normal Saline) 1,000 mls @ 500 mls[facility] Last Admin: 11/25/17 11:57 Dose: 500 mls/hr Levofloxacin/Dextrose 750 mg/ (Premix) 150 mls @ 100 mls/hr IV ONETIME ONE Stop: 11/25/17 13:55 Last Admin: 11/25/17 12:53 Dose: 100 mls/hr Cefoxitin Sodium 2 gm/ Premix 50 mls @ 100 mls/hr IV ONETIME ONE Stop: 11/25/17 14:37 Last Admin: 11/25/17 14:59 Dose: Not Given Cefoxitin Sodium 1 gm/ Premix 50 mls @ 100 mls/hr IV ONETIME ONE Stop: 11/25/17 15:01 Last Admin: 11/25/17 15:00 Dose: 100 mls/hr Sodium Chloride (Normal Saline) 1,000 mls @ 999 [facility] Last Admin: 11/25/17 14:47 Dose: 999 mls/hr Sodium Chloride (Normal Saline) 1,000 mls @ 125 mls/hr IV ASDIRECTED [facility] Last Admin: 11/27/17 00:26 Dose: 125 mls/hr Piperacillin Sod/Tazobactam (Sod 4.5 gm/ Sodium Chloride) 100 mls @ 200 mls/hr IV ONETIME ONE Stop: 11/25/17 17:29 Last Admin: 11/25/17 19:05 Dose: 200 mls/hr Lidocaine HCl (Xylocaine-Mpf 1%) Confirm Administered Dose 4 mls @ as directed .ROUTE .STK-MED ONE Stop: 11/25/17 15:07 Lactated Ringer's (Ringers, Lactated) Confirm Administered Dose 1,000 mls @ as directed .ROUTE .STK-MED ONE Stop: 11/25/17 16:04 Sodium Chloride (Normal Saline) 500 mls @ 999 mls/hr IV ONETIME ONE Stop: 11/26/17 20:59 Last Admin: 11/26/17 21:32 Dose: 999 mls/hr Ketorolac Tromethamine (Toradol) 30 mg IVPUSH ONETIME [facility] Last Admin: 11/25/17 11:55 Dose: 30 mg Lidocaine/Epinephrine (Xylocaine 1% With Epinephrine 1:100,000) Confirm Administered Dose 20 ml .ROUTE .STK-MED ONE Stop: 11/25/17 14:37 Last Admin: 11/25/17 15:42 Dose: 9 ml Metoclopramide HCl (Reglan) 7.5 mg IVPUSH ONETIME ONE Stop: 11/25/17 11:20 Last Admin: 11/25/17 11:53 Dose: 7.5 mg Midazolam HCl (Versed 1 Mg/Ml) Confirm Administered Dose 2 mg .ROUTE .STK-MED ONE Stop: 11/25/17 15:05 Neostigmine Methylsulfate (Neostigmine) Confirm Administered Dose 5 mg .ROUTE .STK-MED ONE Stop: 11/25/17 16:36 Non-Formulary Medication (Potassium Citrate [Potassium Citrate]) 10 meq PO BID [facility] Ondansetron HCl (Zofran) 4 mg IVPUSH ONETIME ONE Stop: 11/25/17 14:16 Last Admin: 11/25/17 14:38 Dose: 4 mg Ondansetron HCl (Zofran) 4 mg IVPUSH ONETIME PRN PRN Reason: Nausea/Vomiting Ondansetron HCl (Zofran) Confirm Administered Dose 4 mg .ROUTE .STK-MED ONE Stop: 11/25/17 15:07 Oxycodone/Acetaminophen (Percocet 325-5 Mg) 1 tab PO Q4H PRN PRN Reason: Pain Last Admin: 11/29/17 05:55 Dose: 1 tab Potassium Chloride (Potassium Chloride Solution) 20 meq PO BID [facility] Last Admin: 11/29/17 10:36 Dose: 20 meq Potassium Chloride (Klor-Con M20) 40 meq PO ONETIME ONE Stop: 12/03/17 09:36 Last Admin: 12/03/17 10:07 Dose: 40 meq Propofol (Diprivan 20 Ml) Confirm Administered Dose 200 mg .ROUTE .STK-MED ONE Stop: 11/25/17 15:05 Rocuronium [place] (Zemuron) Confirm Administered Dose 50 mg .ROUTE .STK-MED ONE Stop: 11/25/17 15:07 Sodium Chloride (Saline Flush) 10 ml FLUSH ASDIRECTED PRN PRN Reason: Keep Vein Open *Q Meaningful Use (DIS) - VTE *Q VTE Criteria *Q: - Stroke *Q Stroke Criteria *Q: - AMI *Q AMI Criteria *Q:
[2017-12-07] MEDS: Saccharomyces Boulardii (Probiotic) 250 MG Cap PO SCH (09:24)
[2017-12-07] MEDS: Losartan 25 MG Tab PO SCH (09:25)
[2017-12-07] MEDS: Potassium Chloride 10 MEQ Tab.ER PO SCH (09:25)
[2017-12-07] MEDS: Timolol Maleate 0.5% Ophth Soln 5 ML Bottle EYEBOTH SCH (09:25)
[2017-12-07 09:30] VITALS: BP 105/61
== END 2017-12-07 10:35 | disposition home or self-care (01) | DRG 339 ==
LOC: JD.ED 10:35 → JD.SDS 15:16 → JD.MS 16:43 → JD.OB 12-02 11:25 → JD.MS 12-04 13:52
PROVIDERS: ADMIT Surgery; ATTEND Surgery
PROC: 0DTJ4ZZ Resection of Appendix, Percutaneous Endoscopic Approach (ICD-10-PCS; principal; 2017-11-25)
PROC: 0D9670Z Drainage of Stomach with Drainage Device, Via Natural or Artificial Opening (ICD-10-PCS; 2017-11-25)
DX: K35.3 Acute appendicitis with localized peritonitis (principal); K56.7 Ileus, unspecified; I12.9 Hypertensive chronic kidney disease with stage 1 through stage 4 chronic kidney disease, or unspecified chronic kidney disease; E11.22 Type 2 diabetes mellitus with diabetic chronic kidney disease; N18.3 Chronic kidney disease, stage 3 (moderate); E78.00 Pure hypercholesterolemia, unspecified; K21.9 Gastro-esophageal reflux disease without esophagitis; F32.9 Major depressive disorder, single episode, unspecified; F41.9 Anxiety disorder, unspecified; Z79.84 Long term (current) use of oral hypoglycemic drugs; Z79.899 Other long term (current) drug therapy; Z88.2 Allergy status to sulfonamides
CPT/HCPCS: 36415; 74018; 74018-26; 74176; 74176-26; 80048; 80053; 81001; 82962; 85025; 86140; 87086; 93005; 93010; 94760; 96365; 96366; 96375; 99285; 99285-25; A9270-GY; J0694; J1170; J1200; J1885; J1956; J2250; J2405; J2543; J2704; J2710; J2765; J3010; J7030; J7040; J7042; J7050; J7120; Q9963

== ENCOUNTER → 2018-05-02 | Day surgery (SDC) | payer MEDICARE ==
--- NOTE | 2018-05-01 11:12 | PCM.PREANE ---
Preanesthetic Assessment - Anesthesia/Transfusion/Family Hx Anesthesia History: Prior Anesthesia Without Reaction Family History of Anesthesia Reaction: No Transfusion History: No Prior Transfusion(s) Intubation History: Unknown - Review of Systems General: No Symptoms, Fatigue Pulmonary: No Symptoms (COPD (asthma)), Cough (dry cough) Cardiovascular: No Symptoms (HTN), Palpitations (History of mitral valve prolapse) Gastrointestinal: No Symptoms (GERD), Decreased Appetite, Melena (History of melena) Neurological: No Symptoms (Vertigo/Chronic Kidney Disease Stage III), Dizziness (history of dizziness with position changes), Headache Other: Reports: None (chronic pain), Diabetes (AM blood [id number] @ 0720), Sinus Problem (acute sinusitis), Depression, Anxiety - Physical Assessment NPO Status Date: 04/30/18 NPO Status Time: 19:00 Pulse: 86 O2 Sat by Pulse Oximetry: 94 Respiratory Rate: 16 Blood Pressure: 139/86 Temperature: 36.6 C Height: 1.88 m Weight: 94 kg ASA Class: 2 Mental Status: Alert & Oriented x3 Airway Class: Mallampati = 2 Dentition: Reports: Normal Dentition, Caries Thyro-Mental Finger Breadths: 3 Mouth Opening Finger Breadths: 3 ROM/Head Extension: Full Lungs: Clear to Auscultation, Normal Respiratory Effort Cardiovascular: Regular Rate, Regular Rhythm, No Murmurs - Lab Values: Lab values reviewed and noted and within acceptable ranges to proceed with scheduled procedure. - Imaging/EKG Impressions: EKG: ST [id number] Stress Test 2016: NM portion no abnormality, EF =56%. Echocardiogram: 2016 EF= 55-60%, mitral valve regurgitation, Mild tricuspid valve regurgitation. - Allergies Allergies/Adverse Reactions: Allergies Allergy/AdvReac Type Severity Reaction Status Date / Time Sulfa (Sulfonamide Allergy Intermediate Rash Verified 05/02/18 07:21 Antibiotics) - Anesthesia Plan Pre-Op Medication Ordered: None - Acknowledgements Anesthesia Type Planned: MAC Pt an Appropriate Candidate for the Planned Anesthesia: Yes Alternatives and Risks of Anesthesia Discussed w Pt/Guardian: Yes Pt/Guardian Understands and Agrees with Anesthesia Plan: Yes PreAnesthesia Questionnaire HEENT History: Reports: Cataract, Glaucoma Cardiovascular History: Reports: High Cholesterol, Hypertension Other Respiratory History: Bronchial spasms Gastrointestinal History: Reports: GERD Genitourinary History: Reports: Renal Calculus, Renal Disease Other Genitourinary History: Stage III kidney disease Neurological History: Reports: Migraines Psychiatric History: Reports: Anxiety, Depression Endocrine/Metabolic History: Reports: Diabetes, Type II (uses Tradjenta for control.) - Infectious Disease History Infectious Disease History: Reports: Chicken Pox - Past Surgical History HEENT Surgical History: Reports: Cataract Surgery GI Surgical History: Reports: Cholecystectomy Other Musculoskeletal Surgeries/Procedures:: Knee surgeries - HOME MEDS Home Medications: Home Meds Zolpidem [Ambien] 10 mg PO BEDTIME 02/20/14 [History] tiZANidine [Zanaflex] 4 - 8 mg PO BEDTIME 02/20/14 [History] Adalimumab [Humira] 40 mg PO Q14D 11/11/15 [History] Linagliptin [Tradjenta] 5 mg PO DAILY 11/11/15 [History] Losartan [Cozaar] 25 mg PO DAILY 11/11/15 [History] Potassium Citrate 10 meq PO TID 11/11/15 [History] risperiDONE 1 - 2 mg PO BEDTIME 11/11/15 [History] Cholecalciferol (Vitamin D3) [Vitamin D3] 5,000 unit PO DAILY 08/06/17 [History] Citalopram Hydrobromide [Celexa] 40 mg PO DAILY 08/06/17 [History] Cyanocobalamin (Vitamin B-12) [Vitamin B-12] 1,000 mcg PO DAILY 08/06/17 [ History] Gabapentin [Neurontin] 300 mg PO TID 08/06/17 [History] atorvaSTATin [Lipitor] 40 mg PO BEDTIME 08/06/17 [History] buPROPion HCl [Wellbutrin Xl] 300 mg PO DAILY 08/06/17 [History] Albuterol [Proair HFA] 2 puff IH Q4H PRN 11/26/17 [History] Loperamide HCl [Imodium A-D] 2 mg PO ASDIRECTED PRN 11/26/17 [History] Loratadine/Pseudoephedrine [Claritin-D 12 Hour] 1 tab PO BID PRN 11/26/17 [ History] Mometasone Furoate [Nasonex] 2 sprays NASBOTH DAILY 11/26/17 [History] Multivitamin [Men's Multi-Vitamin] 1 tab PO DAILY 11/26/17 [History] Chrom [place]/Brindal Bourgeois [Garcinia Cambogia Tablet] 1 tab PO DAILY 05/01/18 [ History] Cider Vinegar [Apple Cider Vinegar] 300 mg PO DAILY 05/01/18 [History] Diclofenac Sodium [Voltaren] 1 dose TOP ASDIRECTED PRN 05/01/18 [History] Echinacea [Echinacea Herb] 380 mg PO DAILY 05/01/18 [History] Fluticasone Propionate [Flovent Hfa] 2 puff INH BID 05/01/18 [History] Krill Oil 500 mg PO DAILY 05/01/18 [History] SUMAtriptan [Imitrex] 50 mg PO ASDIRECTED PRN 05/01/18 [History] Vit A/C/E AC/Znox/Cupric Oxide [Eye Vitamin-Minerals Tablet] 1 tab PO DAILY 09/08 [History] Vortioxetine Hydrobromide [Trintellix] 10 mg PO DAILY 05/01/18 [History] - CURRENT (IN HOUSE) MEDS Current Meds: Current Medications Lactated Ringer's (Ringers, Lactated) 1,000 mls @ 125 mls/hr IV ASDIRECTED [facility] Stop: 05/02/18 23:00 Lidocaine/Sodium Bicarbonate (Buffered Lidocaine 1% In Ns 8.4%) 0.25 ml IDERM ONETIME PRN PRN Reason: Prior to IV Start Stop: 05/02/18 18:00 Sodium Chloride (Saline Flush) 10 ml FLUSH ASDIRECTED PRN PRN Reason: Keep Vein Open Stop: 05/02/18 18:00
[~2018-05-02] MED LIST changes: -Cefuroxime 10 MG/ML SYRINGE EYERT SCH; +Lactated Ringers 1,000 ML IV SCH; +Lidocaine 1% 4 ML ONE; -Lidocaine 1% PF 2 ML SDV INJECT SCH; +Lidocaine 1%/Sod Bicarbonate in NS 8.4% 1 ML Syringe IDERM PRN; -Pilocarpine 4% Ophth Soln 15 ML Bot EYERT SCH; +Propofol 200 MG/20 ML SDV ONE; +Sodium Chloride 0.9% 10 ML Syringe FLUSH PRN; +fentaNYL 100 MCG/2 ML SDV ONE
--- NOTE | 2018-05-02 07:35 | PCM.HP ---
H&P History of Present Illness - General Date of Service: 05/02/18 Admit Problem/Dx: Screening colonoscopy Source of Information: Patient - History of Present Illness Initial Comments - Free Text/Narative: The patient is a 52-year-old male referred by Dr. Pineda for screening colonoscopy The patient presents today for the above noted concern. He was last evaluated in the clinic on 03/27/18. He denies changes to medical history since that visit. He did complete colonoscopy prep. Stools were clear. NO: constipation/ diarrhea. At his previous visit he reported some increased flatus post appendectomy-this has settled down. He did have perforated appendicitis with fecal peritonitis and a prolonged hospital stay this November. NO hematochezia. He has had no colonoscopy. NO: blood on tissue paper/hemorrhoids. Has 1BMs daily. Bowel movements are described as regular and easy to pass. No unintentional weight loss. No change in stool caliber. No abdominal pain. He previously reported he could have suprapubic pain with gas pain-this has resolved. Denies history of ulcerative colitis or Crohn's disease. Reports family history of inflammatory bowel disease. NO: GI cancers. Previously reported had reflux, heartburn with Trintelix. He was given this to try for one month for depression. Prior to starting this medicationhe rarely had symptoms. He is no longer taking this medication, but does continue to have heartburn. He does still take omeprazole and this does control symptoms. NO: nausea, vomiting, or dysphagia. He did report a tarry stool with heart burn when starting Trintelix. He has had no recurrence of this since start of omeprazole. He has had EGDs for this in the past. At last visit he reported Melena with start of Trintelix, last occurred prior to starting the omeprazole. Again has had no further melena stools with use of omeprazoled. The heartburn, reflux and melena essentially resolved with start of omeprazole. The patient had an EGD in 2012. He had a small sliding hiatal hernia there was a Schatzki's ring and some mild chronic esophagitis. He did chronic gastritis. Biopsies showed minimal chronic gastritis. - Related Data Allergies/Adverse Reactions: Allergies Allergy/AdvReac Type Severity Reaction Status Date / Time Sulfa (Sulfonamide Allergy Intermediate Rash Verified 05/02/18 07:21 Antibiotics) Home Medications: Home Meds Zolpidem [Ambien] 10 mg PO BEDTIME 02/20/14 [History] tiZANidine [Zanaflex] 4 - 8 mg PO BEDTIME 02/20/14 [History] Adalimumab [Humira] 40 mg PO Q14D 11/11/15 [History] Linagliptin [Tradjenta] 5 mg PO DAILY 11/11/15 [History] Losartan [Cozaar] 25 mg PO DAILY 11/11/15 [History] Potassium Citrate 10 meq PO TID 11/11/15 [History] risperiDONE 1 - 2 mg PO BEDTIME 11/11/15 [History] Cholecalciferol (Vitamin D3) [Vitamin D3] 5,000 unit PO DAILY 08/06/17 [History] Citalopram Hydrobromide [Celexa] 40 mg PO DAILY 08/06/17 [History] Cyanocobalamin (Vitamin B-12) [Vitamin B-12] 1,000 mcg PO DAILY 08/06/17 [ History] Gabapentin [Neurontin] 300 mg PO TID 08/06/17 [History] atorvaSTATin [Lipitor] 40 mg PO BEDTIME 08/06/17 [History] buPROPion HCl [Wellbutrin Xl] 300 mg PO DAILY 08/06/17 [History] Albuterol [Proair HFA] 2 puff IH Q4H PRN 11/26/17 [History] Loperamide HCl [Imodium A-D] 2 mg PO ASDIRECTED PRN 11/26/17 [History] Loratadine/Pseudoephedrine [Claritin-D 12 Hour] 1 tab PO BID PRN 11/26/17 [ History] Mometasone Furoate [Nasonex] 2 sprays NASBOTH DAILY 11/26/17 [History] Multivitamin [Men's Multi-Vitamin] 1 tab PO DAILY 11/26/17 [History] Chrom Shelby/Brindal Bourgeois [Garcinia Cambogia Tablet] 1 tab PO DAILY 05/01/18 [ History] Cider Vinegar [Apple Cider Vinegar] 300 mg PO DAILY 05/01/18 [History] Diclofenac Sodium [Voltaren] 1 dose TOP ASDIRECTED PRN 05/01/18 [History] Echinacea [Echinacea Herb] 380 mg PO DAILY 05/01/18 [History] Fluticasone Propionate [Flovent Hfa] 2 puff INH BID 05/01/18 [History] Krill Oil 500 mg PO DAILY 05/01/18 [History] SUMAtriptan [Imitrex] 50 mg PO ASDIRECTED PRN 05/01/18 [History] Vit A/C/E AC/Znox/Cupric Oxide [Eye Vitamin-Minerals Tablet] 1 tab PO DAILY 09/08 [History] Vortioxetine Hydrobromide [Trintellix] 10 mg PO DAILY 05/01/18 [History] Past Medical History HEENT History: Reports: Cataract, Glaucoma, Sinusitis Cardiovascular History: Reports: Heart Murmur, High Cholesterol, Hypertension, Other (See Below) Other Cardiovascular History: pedal edema, palpitations, mitral valve prolapse Respiratory History: Reports: Asthma Other Respiratory History: Bronchial spasms Gastrointestinal History: Reports: GERD, Hiatal Hernia, Other (See Below) Other Gastrointestinal History: reflux, melena, fecal peronitonitis Genitourinary History: Reports: Renal Calculus, Renal Disease Other Genitourinary History: Stage III kidney disease 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: Reports: 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 Musculoskeletal History: Reports: Fibromyalgia, Other (See Below) Other Musculoskeletal History: left lateral epicondylitis, left elbow pain Neurological History: Reports: Migraines, Other (See Below) Other Neuro History: dizziness, vertigo Psychiatric History: Reports: Anxiety, Depression, Other (See Below) Other Psychiatric History: chronic pain Endocrine/Metabolic History: Reports: Diabetes, Type II Hematologic History: Reports: None Immunologic History: Reports: None Oncologic (Cancer) History: Reports: None Dermatologic History: Reports: None - Infectious Disease History Infectious Disease History: Reports: Chicken Pox - Past Surgical History Head Surgeries/Procedures: Reports: None HEENT Surgical History: Reports: Cataract Surgery Cardiovascular Surgical History: Reports: None Respiratory Surgical History: Reports: None GI Surgical History: Reports: Appendectomy, Cholecystectomy, EGD Female Surgical History: Reports: None Male Surgical History: Reports: None Endocrine Surgical History: Reports: None Neurological Surgical History: Reports: None Musculoskeletal Surgical History: Reports: Arthroscopic Knee Other Musculoskeletal Surgeries/Procedures:: Knee surgeries Oncologic Surgical History: Reports: None Dermatological Surgical History: Reports: None Social & Family History - Family History Family Medical History: Noncontributory Cardiac: Reports: Blood Clots/VTE/DVT (mother) - Tobacco Use Smoking Status *Q: Never Smoker - Caffeine Use Caffeine Use: Reports: None - Recreational Drug Use Recreational Drug Use: No Drug Use in Last 12 Months: No - Living Situation & Occupation Living situation: Reports: Occupation: Unemployed H&P Review of Systems - Review of Systems: Review Of Systems: See Below Free Text/Narrative: Denies any exertional chest pain or shortness of breath. No history of any easy bleeding or bruising. No personal or familial history of clotting or bleeding disorders. Mother was on blood thinners for blood clots to hips. No history of anesthetic complications. No history of familial anesthetic complications. Denies presence of chest pain. He reports history of chest pain, with prior negative EKGs per patient. NO recent chest pain. He does admit topalpitations, at times and was told he had "mitral valve prolapse. Was told he had a heart murmur. " Hx of ankle and foot edema. NO: dyspnea at rest, orthopnea, claudication, wheezing, obstructive sleep apnea. NO: snoring, witnessed apnea. Admits to an occasional dry cough. NO:upper respiratory symptoms in the last two weeks. No history of blood thinner use. No history of anemia. NO: joint replacement and heart valve replacement. No history of seizure or stroke. He reports several year hx of dizziness. He reports a couple of months ago, he got up to fast, felt light headed and did fall to the floor. He did not lose consciousness. He did hold on to his door frame and did not injure himself. PCP is aware. He reports this seems to only happen with position change. Dizziness has significantly improved with changing positions slowly. He reports he was putting his pants on the other day and did lose balance. Did not fall. Has had negative carotid duplex in 2015. He had a repeat carotid duplex after last visit that was unremarkable. He has no cardiac symptoms or vision changes/weakness/headaches with the episodes. No fever, chills, or nightsweats. No prior cardiology evaluation. Distant hx of pulmonology evaluation was diagnosed with bronchial spasms and was started on inhalers. He now rarely uses Albuterol, only with high humidity or pollen.. Has not needed to use recently. EKG to 02/08/2018 showed sinus tachycardia otherwise normal ECG. Stress test 2016 EKG portion was technically positive EKG with lead III having ST depression of greater than 1 mm. NO chest pain. NM portion showed no abnormality, EF was 56%. Echo 2016 reviewed: see previous H&P for details All other systems reviewed and were negative except as per history of present illness. Exam - Exam Exam: See Below - Vital Signs Vital Signs: Last Vital Signs Temp 97.9 F 05/02/18 07:29 Pulse 86 05/02/18 07:29 Resp 16 05/02/18 07:29 BP 139/86 05/02/18 07:29 Pulse Ox 94 L 05/02/18 07:29 - Exam General: Alert, Oriented, Cooperative HEENT: Conjunctiva Clear, Hearing Intact, Pupils Equal, Pupils Reactive Lungs: Clear to Auscultation, Normal Respiratory Effort Cardiovascular: Regular Rate, Regular Rhythm, Normal S1, Normal S2 GI/Abdominal Exam: Normal Bowel Sounds, Soft, Non-Tender, No Distention Back Exam: Normal Inspection Extremities: Normal Inspection, No Pedal Edema Peripheral Pulses: 2+: Radial (L), Radial (R) Skin: Warm, Dry, Intact Neurological: Normal Speech. No: Focal Deficit Neuro Extensive - Mental Status: Alert, Oriented x3, Normal Mood/Affect, Normal Cognition, Memory Intact Psychiatric: Alert, Normal Affect, Normal Mood - Patient Data Lab Results Last 24 hrs: Laboratory Results - last 24 hr 05/02/18 Range/Units 07:18 POC Glucose 146 H (70-105) mg/dL - Problem List (1) Encounter for screening colonoscopy SNOMED Code(s): 972595022, [id number] ICD Code: Z12.11 - ENCOUNTER FOR SCREENING FOR MALIGNANT NEOPLASM OF COLON Status: Acute Current Visit: Yes Problem List Initiated/Reviewed/Updated: Yes Orders Last 24hrs: Active Orders 24 hr Category Date Time Status Blood Glucose Check, Bedside [RC] ONETIME Care 05/02/18 00:01 Active Peripheral IV Care [RC] . DIRECTED Care 05/02/18 00:01 Active Verify Patient Consent Obtain [RC] ASDIRECTED Care 05/02/18 00:01 Active Lactated Ringers [Ringers, Lactated] 1,000 ml Med 05/02/18 00:01 Active IV ASDIRECTED Lidocaine 1%/Sod Bicarbonate [Buffered Lidocaine 1% in Med 05/02/18 00:01 Active NS 8.4%] 0.25 ml IDERM ONETIME PRN Sodium Chloride 0.9% [Saline Flush] Med 05/02/18 00:01 Active 10 ml FLUSH ASDIRECTED PRN Medication Administration Instruction [OM.PC] Routine Oth 05/02/18 00:01 Ordered Peripheral IV Insertion Adult [OM.PC] Routine Oth 05/02/18 00:01 Ordered Medication Orders Lactated Ringer's (Ringers, Lactated) 1,000 mls @ 125 mls/hr IV ASDIRECTED LULA Stop: 05/02/18 23:00 Last Admin: 05/02/18 07:24 Dose: 125 mls/hr Lidocaine/Sodium Bicarbonate (Buffered Lidocaine 1% In Ns 8.4%) 0.25 ml IDERM ONETIME PRN PRN Reason: Prior to IV Start Stop: 05/02/18 18:00 Last Admin: 05/02/18 07:24 Dose: 0.25 ml Sodium Chloride (Saline Flush) 10 ml FLUSH ASDIRECTED PRN PRN Reason: Keep Vein Open Stop: 05/02/18 18:00 Assessment/Plan Comment:: 52yr male with no prior colonoscopy, need for screening colonoscopy Hx of reflux, heartburn, melena Patient can perform 4 METS of physical activity without chest pain or shortness of breath. Hx of dizziness PLAN: We discussed performing a screening colonoscopy. We discussed the procedure and post operative expectations. This procedure will be done at [facility] due to chronic medical conditions He has a long standing hx of dizziness, occurs with position change. He reported this has improved significantly with observation of changing positions slowly. He has had a carotid duplex in 2014 that was normal. Carotid duplex was repeated after last visit and this was also unremarkable. He should follow up with PCP should this worsen or persist. He also previoulsy reported Trintelix induced worsening of reflux/heartburn and then did get some tarry, melenic stools with this. The Trintelix was discontinued. He does still have heartburn, however, this is well controlled with use of PPI. He has had no further bouts of melena or tarry stools since start of Prilosec. Previously discussed EGD to further evaluate. He declined EGD. We discussed he should monitor and if symptoms recur/persist or worsen EGD should be considered and he should follow up. . I personally reviewed the patient's previous medical records and laboratory studies. Patient verbalized understanding and agreed with care plan. ZACHARY Okeefe General Surgery Department [facility]
--- NOTE | 2018-05-02 08:56 | PCM48HPAN ---
Post Anesthesia Note - EVALUATION WITHIN 48HRS OF ANESTHETIC Vital Signs in Normal Range: Yes Patient Participated in Evaluation: Yes Respiratory Function Stable: Yes Airway Patent: Yes Cardiovascular Function Stable: Yes Hydration Status Stable: Yes Pain Control Satisfactory: Yes Nausea and Vomiting Control Satisfactory: Yes Mental Status Recovered: Yes Pulse Rate: 77 SaO2: 98 Resp Rate: 15 Temperature: 36.9 C Blood Pressure: 125/94 Pulse Rate: 77
--- NOTE | 2018-05-02 09:15 | PCM.OPNOTE ---
- General Post-Op/Procedure Note Date of Surgery/Procedure: 05/02/18 Operative Procedure(s): colonoscopy to cecum with polypectomy times 2 Pre Op Diagnosis: screening colonoscopy Post-Op Diagnosis: Same Anesthesia Technique: MAC Primary Surgeon: Pepito Kumar EBL in mLs: 0 Complications: None Condition: Good
[2018-05-02 09:39] VITALS: BP 116/74
--- NOTE | 2018-05-02 13:00 | OR ---
DATE OF OPERATION: 05/02/2018 SURGEON: Pepito Kumar MD PREOPERATIVE DIAGNOSIS: Screening colonoscopy. POSTOPERATIVE DIAGNOSIS: Screening colonoscopy. OPERATION PERFORMED: Colonoscopy to cecum, polypectomy, IV sedation. FINDINGS: Diminutive polyps as described above. In addition to this, there was diverticulosis scattered throughout the colon, mild in number. DESCRIPTION OF PROCEDURE: The patient was taken to the endoscopy room, placed in a supine position, connected to monitoring equipment, given IV sedation, placed in left lateral position. Perianal areas inspected was normal. Rectal exam showed good sphincter tone. Video Olympus colonoscope was then introduced into the rectum and threaded up without problem to the cecum, where the appendicular orifice was identified. The prep was limited in that the cecum could not be completely cleaned out for fine details. [place] cleansing score grade B. Scope was slowly withdrawn showing the cecum, ascending colon, transverse colon, descending colon, sigmoid colon, and rectum. Polyp was noted diminutive at the 30 cm and this was captured with a cautery snare and removed and retrieved. The second polyp was diminutive was noted at 20 cm and the same was done. These specimens were both sent to pathology in a labeled container. The patient tolerated the procedure and sent to recovery room in a stable condition to be followed up in the clinic. ANESTHESIA: ESTIMATED BLOOD LOSS: MMODAL /[id number]
== END | disposition home or self-care (01) ==
LOC: JD.SDS 06:52
PROVIDERS: ATTEND Surgery
DX: Z12.11 Encounter for screening for malignant neoplasm of colon (principal); D12.5 Benign neoplasm of sigmoid colon; K63.5 Polyp of colon; E78.00 Pure hypercholesterolemia, unspecified; J45.909 Unspecified asthma, uncomplicated; I12.9 Hypertensive chronic kidney disease with stage 1 through stage 4 chronic kidney disease, or unspecified chronic kidney disease; E11.22 Type 2 diabetes mellitus with diabetic chronic kidney disease; N18.3 Chronic kidney disease, stage 3 (moderate); K21.9 Gastro-esophageal reflux disease without esophagitis; K44.9 Diaphragmatic hernia without obstruction or gangrene; M79.7 Fibromyalgia; F41.9 Anxiety disorder, unspecified; F32.9 Major depressive disorder, single episode, unspecified; Z88.2 Allergy status to sulfonamides
CPT/HCPCS: 00811; 82962; J2001; J2704; J3010; J7120

== ENCOUNTER 2018-11-14 11:35 | Emergency (ER) | payer MEDICARE ==
[2018-11-14 11:42] VITALS: BP 127/77
--- NOTE | 2018-11-14 12:09 | EDM.PDOC ---
<Alix Paris - Last Filed: 11/14/18 13:46> ED HPI GENERAL MEDICAL PROBLEM - General Chief Complaint: ENT Problem Stated Complaint: BLACK EYE Time Seen by Provider: 11/14/18 11:45 Source of Information: Reports: Patient, RN Notes Reviewed History Limitations: Reports: No Limitations - History of Present Illness INITIAL COMMENTS - FREE TEXT/NARRATIVE: Steven is a 53 year old male who presents with left under-eye bruising. Patient states he woke up this morning with a "black eye". He states that his eye had more discharge in it than usual, and that his left eye was blurry for about one minute. Patient denies any mechanism of injury, and believes he is a docile sleeper- though he sleeps alone. He states the inferior orbit is only painful with palpation. He denies any vision changes now, no pain with extraocular movement. He endorses "sinus problems" for the last week, and has felt more congested. He denies any rhinorrhea. Denies any fever, chills, or nightsweats. He has no ear or jaw pain. No headache. 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 Patient has a history of cataracts which were removed 2 years ago, and glaucoma. He uses timolol drops daily. Left Eye Pain Score (Numeric/FACES): 1 - Related Data Allergies Allergy/AdvReac Type Severity Reaction Status Date / Time Sulfa (Sulfonamide Allergy Intermediate Rash Verified 11/14/18 11:42 Antibiotics) Home Meds: Home Meds Zolpidem [Ambien] 10 mg PO BEDTIME 02/20/14 [History] tiZANidine [Zanaflex] 4 - 8 mg PO BEDTIME 02/20/14 [History] Adalimumab [Humira] 40 mg PO Q14D 11/11/15 [History] Linagliptin [Tradjenta] 5 mg PO DAILY 11/11/15 [History] Losartan [Cozaar] 25 mg PO DAILY 11/11/15 [History] Potassium Citrate 10 meq PO TID 11/11/15 [History] risperiDONE 1 - 2 mg PO BEDTIME 11/11/15 [History] Cholecalciferol (Vitamin D3) [Vitamin D3] 5,000 unit PO DAILY 08/06/17 [History] Citalopram Hydrobromide [Celexa] 40 mg PO DAILY 08/06/17 [History] Cyanocobalamin (Vitamin B-12) [Vitamin B-12] 1,000 mcg PO DAILY 08/06/17 [ History] Gabapentin [Neurontin] 300 mg PO TID 08/06/17 [History] atorvaSTATin [Lipitor] 40 mg PO BEDTIME 08/06/17 [History] buPROPion HCl [Wellbutrin Xl] 300 mg PO DAILY 08/06/17 [History] Albuterol [Proair HFA] 2 puff IH Q4H PRN 11/26/17 [History] Loperamide HCl [Imodium A-D] 2 mg PO ASDIRECTED PRN 11/26/17 [History] Loratadine/Pseudoephedrine [Claritin-D 12 Hour] 1 tab PO BID PRN 11/26/17 [ History] Mometasone Furoate [Nasonex] 2 sprays NASBOTH DAILY 11/26/17 [History] Multivitamin [Men's Multi-Vitamin] 1 tab PO DAILY 11/26/17 [History] Chrom Shelby/Brindal Bourgeois [Garcinia Cambogia Tablet] 1 tab PO DAILY 05/01/18 [ History] Cider Vinegar [Apple Cider Vinegar] 300 mg PO DAILY 05/01/18 [History] Diclofenac Sodium [Voltaren] 1 dose TOP ASDIRECTED PRN 05/01/18 [History] Echinacea [Echinacea Herb] 380 mg PO DAILY 05/01/18 [History] Fluticasone Propionate [Flovent Hfa] 2 puff INH BID 05/01/18 [History] Krill Oil 500 mg PO DAILY 05/01/18 [History] SUMAtriptan [Imitrex] 50 mg PO ASDIRECTED PRN 05/01/18 [History] Vit A/C/E AC/Znox/Cupric Oxide [Eye Vitamin-Minerals Tablet] 1 tab PO DAILY 09/08 [History] Vortioxetine Hydrobromide [Trintellix] 10 mg PO DAILY 05/01/18 [History] Past Medical History HEENT History: Reports: Cataract, Glaucoma, Sinusitis Cardiovascular History: Reports: Heart Murmur, High Cholesterol, Hypertension, Other (See Below) Other Cardiovascular History: pedal edema, palpitations, mitral valve prolapse Respiratory History: Reports: Asthma Other Respiratory History: Bronchial spasms Gastrointestinal History: Reports: GERD, Hiatal Hernia, Other (See Below) Other Gastrointestinal History: reflux, melena, fecal peronitonitis Genitourinary History: Reports: Renal Calculus, Renal Disease Other Genitourinary History: Stage III kidney disease 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: 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 Musculoskeletal History: Reports: Fibromyalgia, Other (See Below) Other Musculoskeletal History: left lateral epicondylitis, left elbow pain Neurological History: Reports: Migraines, Other (See Below) Other Neuro History: dizziness, vertigo Psychiatric History: Reports: Anxiety, Depression, Other (See Below) Other Psychiatric History: chronic pain Endocrine/Metabolic History: Reports: Diabetes, Type II Hematologic History: Reports: None Immunologic History: Reports: None Oncologic (Cancer) History: Reports: None Dermatologic History: Reports: None - Infectious Disease History Infectious Disease History: Reports: Chicken Pox - Past Surgical History Head Surgeries/Procedures: Reports: None HEENT Surgical History: Reports: Cataract Surgery Cardiovascular Surgical History: Reports: None Respiratory Surgical History: Reports: None GI Surgical History: Reports: Appendectomy, Cholecystectomy, EGD Male Surgical History: Reports: None Endocrine Surgical History: Reports: None Neurological Surgical History: Reports: None Musculoskeletal Surgical History: Reports: Arthroscopic Knee Other Musculoskeletal Surgeries/Procedures:: Knee surgeries Oncologic Surgical History: Reports: None Dermatological Surgical History: Reports: None Social & Family History - Family History Family Medical History: Noncontributory Cardiac: Reports: Blood Clots/VTE/DVT - Tobacco Use Smoking Status *Q: Never Smoker Second Hand Smoke Exposure: No - Caffeine Use Caffeine Use: Reports: None - Recreational Drug Use Recreational Drug Use: No - Living Situation & Occupation Living situation: Reports: Occupation: Unemployed ED EXAM, ENT - Physical Exam Exam: See Below Exam Limited By: No Limitations General Appearance: Alert, WD/WN, No Apparent Distress Eye Exam: Left Eye: Periorbital Changes (purple/blue bruise of the undereye skin ), Bilateral Eye: EOMI, PERRL Ears: Normal External Exam, Normal Canal, Hearing Grossly Normal, Normal TMs Nose: Normal Inspection, Normal Mucousa, No Blood Mouth/Throat: Normal Inspection, Normal Gums, Normal Lips, Normal Oropharynx Head: Facial Ecchymosis (purple/blue bruise under the left eye), Sinus Tenderness (left maxillary sinus tender to palpation.) Neck: Normal Inspection, Supple, Non-Tender, Full Range of Motion Respiratory/Chest: No Respiratory Distress, Lungs Clear, Normal Breath Sounds Cardiovascular: Normal Peripheral Pulses, Regular Rate, Rhythm, No Gallop, No JVD, No Murmur Neurological: Alert, Oriented, Normal Cognition Psychiatric: Normal Affect, Normal Mood Course - Vital Signs Last Recorded V/S: Last Vital Signs Temp 97.6 F 11/14/18 11:40 Pulse 81 11/14/18 11:40 Resp 16 11/14/18 11:40 BP 127/77 11/14/18 11:40 Pulse Ox 95 11/14/18 11:40 Departure - Departure Disposition: Home, Self-Care 01 Clinical Impression: Periorbital ecchymosis of left eye - Discharge Information Referrals: Ryan Romero MD [Primary Care Provider] - Forms: ED Department Discharge Additional Instructions: Ice the eye 3-5 times a day for about 10-15 minutes. OTC tylenol or motrin as needed for discomfort. For the sinus congestion recommend an OTC nasal spray such as flonase or nasonex. Also recommend a decongestant such as Sudafed D Drink plenty of fluids. Follow-p with PCP as needed. Please return to the ER should your symptoms change or worsen. <Laurita Nagy - Last Filed: 11/14/18 23:07> ED HPI GENERAL MEDICAL PROBLEM - History of Present Illness INITIAL COMMENTS - FREE TEXT/NARRATIVE: I have seen the patient and agree with the HPI as documented by FERMIN Parada. ED ROS ENT - Review of Systems Review Of Systems: See Below Constitutional: Denies: Fever, Chills HEENT: Reports: Sinus Problem (congestion), Other (sneezing). Denies: Ear Pain , Throat Pain Respiratory: Reports: Cough ED EXAM, ENT - Physical Exam Exam: See Below Course - Re-Assessments/Exams Free Text/Narrative Re-Assessment/Exam: 11/14/18 12:26 I have seen the patient and agree with the HPI, ROS and PE as documented by FERMIN Parada. Suspect the periorbital ecchymosis may be related to sneezing or coughing. Recommend OTC treatments for sinus congestion. Will discharge home at this time. Discharge instructions as documented. Departure - Departure Time of Disposition: 12:29 Condition: Good - Discharge Information *PRESCRIPTION DRUG MONITORING PROGRAM REVIEWED*: No *COPY OF PRESCRIPTION DRUG MONITORING REPORT IN PATIENT JAN: No
== END 2018-11-14 12:36 | disposition home or self-care (01) ==
LOC: JD.ED 11:35
DX: S05.12XA Contusion of eyeball and orbital tissues, left eye, initial encounter (principal); E78.00 Pure hypercholesterolemia, unspecified; I12.9 Hypertensive chronic kidney disease with stage 1 through stage 4 chronic kidney disease, or unspecified chronic kidney disease; E11.22 Type 2 diabetes mellitus with diabetic chronic kidney disease; N18.9 Chronic kidney disease, unspecified; K21.9 Gastro-esophageal reflux disease without esophagitis; F41.9 Anxiety disorder, unspecified; F32.9 Major depressive disorder, single episode, unspecified; J45.909 Unspecified asthma, uncomplicated; Z79.899 Other long term (current) drug therapy; Z88.2 Allergy status to sulfonamides; X58.XXXA Exposure to other specified factors, initial encounter
CPT/HCPCS: 99283

== ENCOUNTER 2020-04-29 06:51 | Day surgery (SDC) | payer MEDICARE, OTHER ==
[~2020-04-29 06:51] MED LIST changes: +Albuterol 0.083% 2.5 MG/3 ML Neb Soln NEB PRN; -Lidocaine 1% 4 ML ONE; -Propofol 200 MG/20 ML SDV ONE; -fentaNYL 100 MCG/2 ML SDV ONE
[2020-04-29] MEDS ORDERED: Lactated Ringers 0 ML ONE (07:20)
[2020-04-29] MEDS ORDERED: Ondansetron 4 MG/2 ML SDV ONE (07:20)
[2020-04-29] MEDS ORDERED: Lidocaine 1% 4 ML ONE (07:20)
[2020-04-29] MEDS ORDERED: ceFAZolin 1 GM Vial ONE (07:20)
[2020-04-29] MEDS ORDERED: Dexamethasone 4 MG/ML 5 ML MDV ONE (07:21)
[2020-04-29] MEDS ORDERED: fentaNYL 250 MCG/5 ML SDV ONE (07:21)
[2020-04-29] MEDS ORDERED: Propofol 200 MG/20 ML SDV ONE (07:21)
[2020-04-29] MEDS ORDERED: Ketorolac 30 MG/ML SDV ONE (07:21)
[2020-04-29] MEDS ORDERED: Midazolam 1 MG/ML 2 ML SDV ONE (07:21)
[2020-04-29] MEDS ORDERED: Bupivacaine 0.25% 10 ML SDV ONE (07:30)
[2020-04-29] MEDS ORDERED: Albuterol 0.083% 2.5 MG/3 ML Neb Soln NEB ONE (07:44)
--- NOTE | 2020-04-29 07:51 | PCM.PREANE ---
Preanesthetic Assessment - Procedure Proposed Procedure: Left Knee Video Arthroscopy - Anesthesia/Transfusion/Family Hx Anesthesia History: Prior Anesthesia Without Reaction Family History of Anesthesia Reaction: No Transfusion History: No Prior Transfusion(s) Intubation History: Unknown - Review of Systems General: No Symptoms Pulmonary: Other (History of bronchial spasms with humidity and extreme exercise. ) Cardiovascular: No Symptoms, Other (Hypertension, Elevated lipid profile. Able to achieve a 4 MET exercise capacity. ) Gastrointestinal: Other (GERD with certain foods.) Neurological: No Symptoms Other: Reports: None (Obesity, Stage III Kidney disease, Creatinine 1.7 with GFR of 36. ), Diabetes (Type II, Blood Glucose 125 mg/dl this morning. ), Depression, Anxiety - Physical Assessment NPO Status Date: 04/28/20 NPO Status Time: 21:00 Vital Signs: Last Vital Signs Temp 36.3 C 04/29/20 06:50 Pulse 94 04/29/20 06:50 Resp 16 04/29/20 06:50 BP 132/90 04/29/20 06:50 Pulse Ox 93 L 04/29/20 06:50 Height: 1.85 m Weight: 101.605 kg ASA Class: 3 Mental Status: Alert & Oriented x3 Airway Class: Mallampati = 3 (Large Tongue) Dentition: Reports: Normal Dentition Thyro-Mental Finger Breadths: 3 Mouth Opening Finger Breadths: 2 ROM/Head Extension: Full Lungs: Clear to Auscultation, Normal Respiratory Effort Cardiovascular: Regular Rate, Regular Rhythm - Lab Values: Laboratory Last Values POC Glucose 125 mg/dL (70-105) H 04/29/20 07:15 COVID-19 PCR Not detected (NOT DETECT) 04/26/20 12:00 SARS Virus RNA (PCR) Negative (NEGATIVE) 03/16/20 12:00 MRSA (PCR) TNP 04/16/20 10:17 - Allergies Allergies/Adverse Reactions: Allergies Allergy/AdvReac Type Severity Reaction Status Date / Time Sulfa (Sulfonamide Allergy Intermediate Rash Verified 04/28/20 12:45 Antibiotics) - Anesthesia Plan Pre-Op Medication Ordered: Anxiolytic, Other (Albuterol Neb Treatment) - Acknowledgements Anesthesia Type Planned: General Anesthesia Pt an Appropriate Candidate for the Planned Anesthesia: Yes Alternatives and Risks of Anesthesia Discussed w Pt/Guardian: Yes Pt/Guardian Understands and Agrees with Anesthesia Plan: Yes PreAnesthesia Questionnaire HEENT History: Reports: Cataract, Glaucoma, Impaired Vision, Sinusitis Cardiovascular History: Reports: Heart Murmur, High Cholesterol, Hypertension, Other (See Below) Other Cardiovascular History: pedal edema, palpitations, mitral valve prolapse Respiratory History: Reports: Asthma Other Respiratory History: Bronchial spasms Gastrointestinal History: Reports: GERD, Hiatal Hernia, Other (See Below) Other Gastrointestinal History: reflux, melena, fecal peronitonitis Genitourinary History: Reports: Renal Calculus, Renal Disease Other Genitourinary History: Stage III kidney disease [employer]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 Musculoskeletal History: Reports: Arthritis, Fibromyalgia, Other (See Below) Other Musculoskeletal History: left lateral epicondylitis, left elbow pain, psoriatic arthritis Neurological History: Reports: Migraines, Other (See Below) Other Neuro History: dizziness, vertigo Psychiatric History: Reports: Anxiety, Depression, Other (See Below) Other Psychiatric History: chronic pain Endocrine/Metabolic History: Reports: Diabetes, Type II, Obesity/BMI 30+ Hematologic History: Reports: None Immunologic History: Reports: None Oncologic (Cancer) History: Reports: None Dermatologic History: Reports: None - Infectious Disease History Infectious Disease History: Reports: None - Past Surgical History Head Surgeries/Procedures: Reports: None HEENT Surgical History: Reports: Cataract Surgery Cardiovascular Surgical History: Reports: None Respiratory Surgical History: Reports: None GI Surgical History: Reports: Appendectomy, Cholecystectomy, EGD Female Surgical History: Reports: None Male Surgical History: Reports: None Endocrine Surgical History: Reports: None Neurological Surgical History: Reports: None Musculoskeletal Surgical History: Reports: Arthroscopic Knee Other Musculoskeletal Surgeries/Procedures:: Knee surgeries, left elbow surgery Oncologic Surgical History: Reports: None Dermatological Surgical History: Reports: None - SUBSTANCE USE Smoking Status *Q: Never Smoker Recreational Drug Use History: No - HOME MEDS Home Medications: Home Meds Zolpidem [Ambien] 10 mg PO BEDTIME 02/20/14 [History] tiZANidine [Zanaflex] 4 - 8 mg PO BEDTIME 02/20/14 [History] Adalimumab [Humira] 40 mg PO Q14D 11/11/15 [History] Linagliptin [Tradjenta] 5 mg PO DAILY 11/11/15 [History] Losartan [Cozaar] 25 mg PO DAILY 11/11/15 [History] Potassium Citrate 10 meq PO TID 11/11/15 [History] risperiDONE 2 mg PO BEDTIME 11/11/15 [History] atorvaSTATin [Lipitor] 40 mg PO BEDTIME 08/06/17 [History] Loratadine/Pseudoephedrine [Claritin-D 12 Hour] 1 tab PO BID PRN 11/26/17 [History] Fluticasone Propionate [Flovent Hfa] 2 puff INH BID PRN 05/01/18 [History] ALPRAZolam [Alprazolam] 1 mg PO TID 04/28/20 [History] DULoxetine HCl [Duloxetine HCl] 60 mg PO DAILY 04/28/20 [History] Fluticasone Propionate [Flonase] 1 dose NASBOTH BID PRN 04/28/20 [History] Gabapentin [Neurontin] 600 mg PO TID 04/28/20 [History] Glimepiride 2 mg PO QAM 04/28/20 [History] Icosapent Ethyl [Vascepa] 1 gm PO DAILY 04/28/20 [History] Pioglitazone HCl 22.5 mg PO DAILY 04/28/20 [History] Timolol [Betimol] 1 drop EYEBOTH DAILY 04/28/20 [History] Acetaminophen/HYDROcodone [[place] 325-5 MG] 1 - 2 tab PO Q6H PRN #15 tablet 04/29/20 [Rx] Aspirin 325 mg PO BID #84 tab 04/29/20 [Rx] - CURRENT (IN HOUSE) MEDS Current Meds: Current Medications Epinephrine HCl (Adrenalin) 3 mg .XX ONETIME ONE Stop: 04/29/20 09:31 Lactated Ringer's (Ringers, Lactated) 1,000 mls @ 125 mls/hr IV ASDIRECTED LULA Stop: 04/29/20 23:00 Last Admin: 04/29/20 07:13 Dose: 125 mls/hr Documented by: Lidocaine/Sodium Bicarbonate (Buffered Lidocaine 1% In Ns 8.4%) 0.25 ml IDERM ONETIME PRN PRN Reason: Prior to IV Start Stop: 04/29/20 18:00 Last Admin: 04/29/20 07:12 Dose: 0.25 ml Documented by: Sodium Chloride (Saline Flush) 10 ml FLUSH ASDIRECTED PRN PRN Reason: Keep Vein Open Stop: 04/29/20 18:00 Discontinued Medications Albuterol (Proventil Neb Soln) 2.5 mg NEB ONETIME PRN PRN Reason: bronchodilation Albuterol (Proventil Neb Soln) 2.5 mg NEB ONETIME ONE Stop: 04/29/20 07:45 Bupivacaine HCl (Sensorcaine-Mpf 0.25%) Confirm Administered Dose 20 ml .ROUTE .STK-MED ONE Stop: 04/29/20 07:31 Cefazolin Sodium (Ancef) Confirm Administered Dose 2 gm .ROUTE .STK-MED ONE Stop: 04/29/20 07:21 Dexamethasone (Dexamethasone) Confirm Administered Dose 20 mg .ROUTE .STK-MED ONE Stop: 04/29/20 07:22 Fentanyl (Sublimaze) Confirm Administered Dose 250 mcg .ROUTE .STK-MED ONE Stop: 04/29/20 07:22 Lactated Ringer's (Ringers, Lactated) 1,000 mls @ 125 mls/hr IV ASDIRECTED LULA Stop: 03/17/20 23:00 Lidocaine HCl (Xylocaine-Mpf 1%) Confirm Administered Dose 4 mls @ as directed .ROUTE .STK-MED ONE Stop: 04/29/20 07:21 Lactated Ringer's (Ringers, Lactated) Confirm Administered Dose 1,000 mls @ as directed .ROUTE .STK-MED ONE Stop: 04/29/20 07:21 Ketorolac Tromethamine (Toradol) Confirm Administered Dose 30 mg .ROUTE .STK-MED ONE Stop: 04/29/20 07:22 Lidocaine/Sodium Bicarbonate (Buffered Lidocaine 1% In Ns 8.4%) 0.25 ml IDERM ONETIME PRN PRN Reason: Prior to IV Start Stop: 03/17/20 18:00 Midazolam HCl (Versed 1 Mg/Ml) Confirm Administered Dose 2 mg .ROUTE .STK-MED ONE Stop: 04/29/20 07:22 Ondansetron HCl (Zofran) Confirm Administered Dose 4 mg .ROUTE .STK-MED ONE Stop: 04/29/20 07:21 Propofol (Diprivan 20 Ml) Confirm Administered Dose 400 mg .ROUTE .STK-MED ONE Stop: 04/29/20 07:22 Sodium Chloride (Saline Flush) 10 ml FLUSH ASDIRECTED PRN PRN Reason: Keep Vein Open Stop: 03/17/20 18:00
[2020-04-29] MEDS ORDERED: Ketamine 500 mg/10 ML MDV ONE (08:19)
--- NOTE | 2020-04-29 09:27 | PCM.POSTAN ---
POST ANESTHESIA ASSESSMENT - MENTAL STATUS Mental Status: Alert, Oriented - VITAL SIGNS Vital Signs: Last Vital Signs Temp 36.3 C 04/29/20 06:50 Pulse 94 04/29/20 06:50 Resp 16 04/29/20 06:50 BP 132/90 04/29/20 06:50 Pulse Ox 96 04/29/20 07:44 0912 98.5F 117/82 83 12 96% - RESPIRATORY Respiratory Status: Respiratory Rate WNL, Airway Patent, O2 Saturation Stable, Supplemental Oxygen - CARDIOVASCULAR CV Status: Pulse Rate WNL, Blood Pressure Stable - GASTROINTESTINAL GI Status: No Symptoms - PAIN Pain Score: 0 - POST OP HYDRATION Hydration Status: Adequate & Stable
[2020-04-29] MEDS ORDERED: EPINEPHrine 1 MG/ML 30 ML MDV ONE (09:30)
[2020-04-29] MEDS ORDERED: Acetaminophen/HYDROcodone 325-5 MG Tab PO PRN (09:39)
--- NOTE | 2020-04-29 10:45 | PCM48HPAN ---
Post Anesthesia Note - EVALUATION WITHIN 48HRS OF ANESTHETIC Vital Signs in Normal Range: Yes Patient Participated in Evaluation: Yes Respiratory Function Stable: Yes Airway Patent: Yes Cardiovascular Function Stable: Yes Hydration Status Stable: Yes Pain Control Satisfactory: Yes Nausea and Vomiting Control Satisfactory: Yes Mental Status Recovered: Yes Vital Signs: Last Vital Signs Temp 36.2 C 04/29/20 10:10 Pulse 82 04/29/20 10:10 Resp 9 L 04/29/20 10:10 BP 127/67 04/29/20 10:10 Pulse Ox 96 04/29/20 10:10
[2020-04-29 11:05] VITALS: BP 126/91; PULSE 85
--- NOTE | 2020-05-06 10:08 | PCM.OPNOTE ---
- General Post-Op/Procedure Note Date of Surgery/Procedure: 04/29/20 Operative Procedure(s): left knee video arthroscopy with partial synovectomy and chondroplasty medial femoral condyle Pre Op Diagnosis: left knee chondromalacia and synovitis Post-Op Diagnosis: Same Anesthesia Technique: General LMA, Local Primary Surgeon: Mason Swain Anesthesia Provider: Rhea Jeronimo Rehab Specialist: Brooke Macias EBArlin in mLs: 5 Complications: None Condition: Good
--- NOTE | 2020-05-06 10:27 | OR ---
DATE OF OPERATION: 04/29/2020 SURGEON: Mason Swain MD OPERATION PERFORMED: Left knee video arthroscopy with partial synovectomy and chondroplasty medial femoral condyle. PREOPERATIVE DIAGNOSIS: Left knee chondromalacia and synovitis. POSTOPERATIVE DIAGNOSIS: Left knee chondromalacia and synovitis. ANESTHESIA: General LMA with local. ANESTHESIA PROVIDER: Nicole Pepper. COBBLER APPRENTICE: Brooke Macias PA-C ESTIMATED BLOOD LOSS: Less than 5 mL. COMPLICATIONS: None. CONDITION: Stable. DESCRIPTION OF PROCEDURE: The patient was identified in the preoperative holding area. Proper site was marked and identified by surgeon. The patient was taken back to the operative theater, where after adequate anesthesia, the patient's right lower extremity was placed in a well leg vasquez. Left lower extremity had a nonsterile tourniquet applied and was placed in a C-clamp vasquez. Foot of the bed was then lowered. Left lower extremity was then sterilely prepped and draped in the usual sterile fashion. OR time-out was performed. The patient received 2 g of IV Ancef. Left lower extremity was exsanguinated. Tourniquet was insufflated to 250 mmHg. Standard anterior lateral portal incision was made. Scope trocar was introduced to the joint. The patient was noted to have a large amount of synovitis with overgrowth of the fat pad with a small plica. He was noted to have grade 2 chondromalacia of the patella with significant chondromalacia with even resting the probe on the cartilage would cause indentation significantly. Attention was turned to the medial compartment. With the use of a spinal needle, anterior medial portal was created. Again, the meniscus was intact, but the patient had severe chondromalacia with the probe just even resting on it almost going to the subchondral bone, even though the patient had no large flaps, cartilage loss, he did have severe chondromalacia. There was noted to be a couple of cartilaginous flaps on the medial femoral condyle. At this time, a chondroplasty of the medial femoral condyle of the loose flaps was taken back to a stable rim. ACL was intact in the notch. Again, the lateral compartment showed severe chondromalacia with again the probe going almost to subchondral bone with even gentle pressure. Partial synovectomy as well as fat pad resection was done at this time of the synovitis. Excess saline was drained from the knee. 3-0 nylon suture was used for closure of the portals. The patient was placed in a sterile soft dressing and sent to the PACU in stable condition. HAM /[id number]
== END 2020-04-29 10:58 | disposition home or self-care (01) ==
LOC: JD.SDS 06:51
PROVIDERS: ATTEND Orthopaedic Surgery
DX: M22.42 Chondromalacia patellae, left knee (principal); M67.52 Plica syndrome, left knee; M65.862 Other synovitis and tenosynovitis, left lower leg; E78.00 Pure hypercholesterolemia, unspecified; J45.909 Unspecified asthma, uncomplicated; K21.9 Gastro-esophageal reflux disease without esophagitis; E66.9 Obesity, unspecified; I12.9 Hypertensive chronic kidney disease with stage 1 through stage 4 chronic kidney disease, or unspecified chronic kidney disease; E11.22 Type 2 diabetes mellitus with diabetic chronic kidney disease; N18.3 Chronic kidney disease, stage 3 (moderate); F41.9 Anxiety disorder, unspecified; F32.9 Major depressive disorder, single episode, unspecified; G43.909 Migraine, unspecified, not intractable, without status migrainosus; Z79.899 Other long term (current) drug therapy; Z11.59 Encounter for screening for other viral diseases; Z88.2 Allergy status to sulfonamides; Z79.82 Long term (current) use of aspirin; Z79.84 Long term (current) use of oral hypoglycemic drugs; Z68.30 Body mass index [BMI] 30.0-30.9, adult
CPT/HCPCS: 29875; 82962; 87641; 94640; J0171; J0690; J1100; J2001; J2250; J2405; J2704; J3010; J3490; J7120; U0002; 01400; J1885

== ENCOUNTER → 2020-07-13 | Day surgery (SDC) | payer MEDICARE ==
[~2020-07-13] MED LIST changes: -Albuterol 0.083% 2.5 MG/3 ML Neb Soln NEB PRN; -Lactated Ringers 1,000 ML IV SCH; -Lidocaine 1%/Sod Bicarbonate in NS 8.4% 1 ML Syringe IDERM PRN; +Phenylephrine 2.5% Ophth Soln 2 ML Bot EYEBOTH SCH; -Sodium Chloride 0.9% 10 ML Syringe FLUSH PRN; +Tropicamide 1% Ophth Soln 15 ML Bottle EYEBOTH SCH
[2020-07-13] MEDS: Brimonidine 0.2% Ophth Soln 5 ML Bottle EYEBOTH SCH ×2 (12:05→13:00)
[2020-07-13 13:41] VITALS: BP 115/72; PULSE 79
== END ==
LOC: JD.SDS 12:04
PROVIDERS: ATTEND Ophthalmology
DX: E11.36 Type 2 diabetes mellitus with diabetic cataract (principal); H26.493 Other secondary cataract, bilateral; H40.053 Ocular hypertension, bilateral; H02.831 Dermatochalasis of right upper eyelid; H02.834 Dermatochalasis of left upper eyelid; H16.103 Unspecified superficial keratitis, bilateral; H16.223 Keratoconjunctivitis sicca, not specified as Sjogren's, bilateral; I12.9 Hypertensive chronic kidney disease with stage 1 through stage 4 chronic kidney disease, or unspecified chronic kidney disease; E11.22 Type 2 diabetes mellitus with diabetic chronic kidney disease; N18.3 Chronic kidney disease, stage 3 (moderate); F41.9 Anxiety disorder, unspecified; F32.9 Major depressive disorder, single episode, unspecified; Z96.1 Presence of intraocular lens; Z88.2 Allergy status to sulfonamides; Z98.42 Cataract extraction status, left eye; Z79.899 Other long term (current) drug therapy

== ENCOUNTER → 2022-07-27 | Day surgery (SDC) | payer MEDICARE ==
[~2022-07-27] MED LIST changes: +Lactated Ringers 1,000 ML IV ONE; +Lidocaine 1% 4 ML ONE; +Midazolam 1 MG/ML 2 ML SDV ONE; -Phenylephrine 2.5% Ophth Soln 2 ML Bot EYEBOTH SCH; +Propofol 200 MG/20 ML SDV ONE; -Tropicamide 1% Ophth Soln 15 ML Bottle EYEBOTH SCH; +fentaNYL 100 MCG/2 ML SDV ONE
== END ==
LOC: JD.SDS 06:00
PROVIDERS: ATTEND Surgery
DX: Z12.11 Encounter for screening for malignant neoplasm of colon (principal); K62.1 Rectal polyp; K63.5 Polyp of colon; K57.30 Diverticulosis of large intestine without perforation or abscess without bleeding; I12.9 Hypertensive chronic kidney disease with stage 1 through stage 4 chronic kidney disease, or unspecified chronic kidney disease; J45.909 Unspecified asthma, uncomplicated; F41.9 Anxiety disorder, unspecified; F32.A Depression, unspecified; E11.22 Type 2 diabetes mellitus with diabetic chronic kidney disease; N18.30 Chronic kidney disease, stage 3 unspecified; E78.5 Hyperlipidemia, unspecified; G43.909 Migraine, unspecified, not intractable, without status migrainosus; G47.00 Insomnia, unspecified; R45.851 Suicidal ideations; M19.90 Unspecified osteoarthritis, unspecified site; Z88.0 Allergy status to penicillin; Z79.899 Other long term (current) drug therapy; Z98.890 Other specified postprocedural states; Z90.49 Acquired absence of other specified parts of digestive tract
CPT/HCPCS: 45380; 45385; J2250; J2704; J3010; 00812

== ENCOUNTER 2022-09-23 10:05 | Emergency (ER) | payer MEDICARE ==
[2022-09-23] MEDS ORDERED: Sodium Chloride 0.9% 10 ML Syringe FLUSH PRN (10:23)
[2022-09-23] MEDS ORDERED: Sodium Chloride 0.9% 1,000 ML IV SCH (10:30)
[2022-09-23] MEDS ORDERED: Naloxone 2 MG/2 ML Syringe IVPUSH ONE (11:17)
[2022-09-23] MEDS ORDERED: Calcium Gluconate 10% 1 GM/10 ML SDV IVPUSH ONE (11:54)
[2022-09-23] MEDS ORDERED: Sodium Chloride 0.9% 1,000 ML IV ONE (12:40)
[2022-09-23 13:54] LABS: CORONAVIRUS COVID-19 NAA NEGATIVE (NEGATIVE)
[2022-09-23 15:21] VITALS: BP 101/71; PULSE 78
== END 2022-09-23 14:35 | disposition home or self-care (01) ==
LOC: JD.ED 10:05
DX: E86.0 Dehydration (principal); E78.00 Pure hypercholesterolemia, unspecified; E11.22 Type 2 diabetes mellitus with diabetic chronic kidney disease; I12.9 Hypertensive chronic kidney disease with stage 1 through stage 4 chronic kidney disease, or unspecified chronic kidney disease; N18.30 Chronic kidney disease, stage 3 unspecified; K21.9 Gastro-esophageal reflux disease without esophagitis; E66.9 Obesity, unspecified; Z68.28 Body mass index [BMI] 28.0-28.9, adult; Z88.2 Allergy status to sulfonamides; Z79.899 Other long term (current) drug therapy; Z79.82 Long term (current) use of aspirin; Z20.822 Contact with and (suspected) exposure to COVID-19
CPT/HCPCS: 0241U; 36415; 70450; 80053; 80143; 80179; 80307; 83605; 83735; 84484; 85025; 86140; 93005; 96361; 96374; 96375; 99285; J0610; J2310; J3490; J7030

== ENCOUNTER 2024-08-24 09:15 | Emergency (ER) | payer MEDICARE ==
[2024-08-24] MEDS ORDERED: Sodium Chloride 0.9% 10 ML Syringe FLUSH PRN (09:38)
[2024-08-24 09:56] LABS: BASOPHILS ABSOLUTE AUTO 0.1 K/mm3 (0.0-0.2); BASOPHILS PERCENT AUTO 0.8 % (0.0-1.0); EOSINOPHILS ABSOLUTE AUTO 0.3 K/mm3 (0.0-0.4); EOSINOPHILS PERCENT AUTO 4.8 % (0.0-6.0); HEMATOCRIT 47.5 % (42.0-52.0); HEMOGLOBIN 15.3 gm/dl (14.0-18.0); IMMATURE GRAN ABSOLUTE AUTO 0.02 K/mm3 (0.00-0.05); IMMATURE GRAN PERCENT AUTO 0.3 % (0.0-0.4); LYMPHOCYTES ABSOLUTE AUTO 1.5 K/mm3 (1.0-4.8); LYMPHOCYTES PERCENT AUTO 24.5 % (24.0-44.0); MEAN CORPUSCULAR HGB CONC 32.2 g/dl (32.0-36.0); MEAN CORPUSCULAR VOLUME 93.1 fl (83.0-99.0); MEAN PLATELET VOLUME 10.6 fl (9.4-12.4); MONOCYTES ABSOLUTE AUTO 0.6 K/mm3 (0.0-0.8); MONOCYTES PERCENT AUTO 9.6 % (0.0-8.0); NEUTROPHILS ABSOLUTE AUTO 3.6 K/mm3 (1.8-7.7); PLATELET COUNT,PLT 224 K/mm3 (150-400); WHITE BLOOD CELL COUNT,WBC 6.07 K/mm3 (3.9-11.3)
[2024-08-24 10:18] LABS: APPEARANCE,URINE CLEAR (Clear); BILIRUBIN,URINE NEGATIVE (Negative); COLOR,URINE YELLOW (Yellow); GLUCOSE,URINE 2+ (Negative); KETONES,URINE NEGATIVE (Negative); LEUKOCYTE ESTERASE,URINE NEGATIVE (Negative); NITRITE,URINE NEGATIVE (Negative); OCCULT BLOOD,URINE TRACE-INTACT (Negative); PROTEIN,URINE NEGATIVE (Negative); UROBILINOGEN,URINE 0.2 (0.2-1.0)
[2024-08-24 10:20] LABS: A/G RATIO 1.2 (1-2); ALBUMIN 3.9 g/dl (3.4-5.0); ANION GAP 11.2 (5-15); BILIRUBIN TOTAL 0.5 mg/dL (0.2-1.0); CALCIUM 8.4 mg/dL (8.5-10.1); CREATININE 1.8 mg/dL (0.7-1.3); EST CRCL DRUG DOSING (CG) 51.38 mL/min; POTASSIUM,K 4.2 mEq/L (3.5-5.1); PROTEIN TOTAL,TP 7.1 g/dl (6.4-8.2)
[2024-08-24 10:34] LABS: CORONAVIRUS COVID-19 NAA NEGATIVE (NEGATIVE); INFLUENZA A NAA NEGATIVE (NEGATIVE); RESPIRATORY SYNCYTIAL VIR NAA NEGATIVE (NEGATIVE)
[2024-08-24 11:10] LABS: RBC,URINE 0-5 /hpf (0-5)
[2024-08-24 11:11] LABS: BACTERIA,URINE FEW /hpf (FEW); MUCUS,URINE FEW /hpf (FEW); SQUAMOUS EPITHELIAL CELLS,UR 0-5 /hpf (0-5)
[2024-08-24 12:58] VITALS: BP 116/58; PULSE 60
== END 2024-08-24 12:53 | disposition home or self-care (01) ==
LOC: JD.ED 09:15
DX: J45.909 Unspecified asthma, uncomplicated (principal); I10 Essential (primary) hypertension; E78.00 Pure hypercholesterolemia, unspecified; K21.9 Gastro-esophageal reflux disease without esophagitis; E11.9 Type 2 diabetes mellitus without complications; E66.9 Obesity, unspecified; Z68.25 Body mass index [BMI] 25.0-25.9, adult; Z90.49 Acquired absence of other specified parts of digestive tract; Z79.82 Long term (current) use of aspirin; Z79.899 Other long term (current) drug therapy; Z88.2 Allergy status to sulfonamides
CPT/HCPCS: 0241U; 36415; 71046; 74176; 80053; 81001; 83690; 85025; 99284

== ENCOUNTER 2025-03-25 08:53 | Emergency (ER) | payer MEDICARE, OTHER, MEDICAID ==
[2025-03-25] MEDS: Sodium Chloride 0.9% 1,000 ML IV ONE (09:38)
[2025-03-25] MEDS ORDERED: Sodium Chloride 0.9% 10 ML Syringe FLUSH PRN (09:39)
[2025-03-25 10:02] LABS: BASOPHILS PERCENT AUTO 0.8 % (0.0-1.0); EOSINOPHILS ABSOLUTE AUTO 0.1 K/mm3 (0.0-0.4); EOSINOPHILS PERCENT AUTO 1.6 % (0.0-6.0); HEMATOCRIT 51.3 % (42.0-52.0); HEMOGLOBIN 16.6 gm/dl (14.0-18.0); IMMATURE GRAN ABSOLUTE AUTO 0.02 K/mm3 (0.00-0.05); IMMATURE GRAN PERCENT AUTO 0.4 % (0.0-0.4); LYMPHOCYTES ABSOLUTE AUTO 1.7 K/mm3 (1.0-4.8); LYMPHOCYTES PERCENT AUTO 32.9 % (24.0-44.0); MEAN CORPUSCULAR HEMOGLOBIN 30.3 pg (28.0-32.0); MEAN CORPUSCULAR HGB CONC 32.4 g/dl (32.0-36.0); MEAN CORPUSCULAR VOLUME 93.8 fl (83.0-99.0); MONOCYTES ABSOLUTE AUTO 0.6 K/mm3 (0.0-0.8); MONOCYTES PERCENT AUTO 12.5 % (0.0-8.0); NEUTROPHILS ABSOLUTE AUTO 2.6 K/mm3 (1.8-7.7); NEUTROPHILS PERCENT AUTO 51.8 % (41.0-71.0); PLATELET COUNT,PLT 229 K/mm3 (150-400); RED BLOOD CELL COUNT 5.47 M/mm3 (4.52-5.90)
[2025-03-25 10:22] LABS: A/G RATIO 0.9 (1-2); ALBUMIN 3.2 g/dl (3.4-5.0); ANION GAP 14.4 (5-15); BILIRUBIN TOTAL 1.3 mg/dL (0.2-1.0); BUN/CREATININE RATIO 3.3 (14-18); CALCIUM 9.3 mg/dL (8.5-10.1); CREATININE 1.8 mg/dL (0.7-1.3); EST CRCL DRUG DOSING (CG) 51.38 mL/min; POTASSIUM,K 4.4 mEq/L (3.5-5.1); PROTEIN TOTAL,TP 6.7 g/dl (6.4-8.2)
[2025-03-25] MEDS: Acetaminophen 325 MG Tab PO ONE (10:25)
[2025-03-25] MEDS: Sodium Chloride 0.9% 1,000 ML IV SCH (10:25)
[2025-03-25 10:41] LABS: APPEARANCE,URINE SLT CLOUDY (Clear); BILIRUBIN,URINE NEGATIVE (Negative); COLOR,URINE YELLOW (Yellow); GLUCOSE,URINE 3+ (Negative); KETONES,URINE NEGATIVE (Negative); LEUKOCYTE ESTERASE,URINE NEGATIVE (Negative); NITRITE,URINE NEGATIVE (Negative); OCCULT BLOOD,URINE 2+ (Negative); PROTEIN,URINE 1+ (Negative); UROBILINOGEN,URINE 0.2 (0.2-1.0)
[2025-03-25 10:53] LABS: BACTERIA,URINE FEW /hpf (FEW); MUCUS,URINE MODERATE /hpf (FEW); RBC,URINE 50-75 /hpf (0-5); SQUAMOUS EPITHELIAL CELLS,UR 0-5 /hpf (0-5); WBC,URINE 0-5 /hpf (0-5)
[2025-03-25 11:47] VITALS: BP 108/85; PULSE 46
== END 2025-03-25 12:20 | disposition home or self-care (01) ==
LOC: JD.ED 08:53
DX: R55 Syncope and collapse (principal); I10 Essential (primary) hypertension; E78.00 Pure hypercholesterolemia, unspecified; E11.9 Type 2 diabetes mellitus without complications; Z88.2 Allergy status to sulfonamides; Z79.899 Other long term (current) drug therapy; Z88.6 Allergy status to analgesic agent
CPT/HCPCS: 36415; 80053; 81001; 82947; 84484; 85025; 93005; 96360; 96361; 99284; A9270; J7030; 93010